=== PATIENT | male | born 1935 | race Two or more races ===

== ENCOUNTER 2020-05-07 14:10 | Inpatient (IN) | payer MEDICARE, BC ==
[~2020-05-07] VITALS: Ht 165.1 cm; Wt 74.8 kg
[2020-05-07] MEDS ORDERED: MAG HYDROX/AL HYDROX/SIMETH 30 ML ORAL.SUSP PO PRN (14:45)
[2020-05-07] MEDS ORDERED: LORA0.5T21 PO ×2 (14:45→14:52)
[2020-05-07] MEDS ORDERED: METHYL SALICYLATE/MENTHOL TOPICAL OINTMENT 57GM TUBE. TP PRN (14:45)
[2020-05-07] MEDS ORDERED: MAGNESIUM HYDROXIDE 2,400 MG/30 ML ORAL.SUSP. PO PRN (14:45)
[2020-05-07] MEDS ORDERED: ACETAMINOPHEN 325 MG TABLET PO PRN (14:45)
[2020-05-07] MEDS ORDERED: MORP5SUP RC (14:52)
[2020-05-07] MEDS ORDERED: TRAZ-125 PO (14:52)
[2020-05-07] MEDS ORDERED: MELA5TAB11 SL (14:52)
[2020-05-07] MEDS ORDERED: MEMA10TA PO (14:52)
[2020-05-07 15:31] VITALS: BP 144/66
[2020-05-07 19:25] LABS: BASO % 1 % (0-3); EOS # 0.3 x10^3/uL (0.0-0.7); EOS % 4 % (0-3); HEMATOCRIT 46.4 % (39.0-53.0); HEMOGLOBIN 14.9 g/dL (13.0-17.5); LYMPH # 1.3 x10^3/uL (1.0-4.8); LYMPH % 19 % (24-48); MEAN CORPUSCULAR HEMOGLOBIN 30 pg (25-35); MEAN CORPUSCULAR HGB CONC 32 g/dL (31-37); MEAN CORPUSCULAR VOLUME 94 fL (79-100); MONO # 0.4 x10^3/uL (0.0-1.1); MONO % 6 % (0-9); NEUT % 71 % (31-73); PLATELET COUNT 180 x10^3/uL (140-400); RED BLOOD COUNT 4.95 x10^6/uL (4.30-5.70); RED CELL DISTRIBUTION WIDTH 14.6 % (11.5-14.5); WHITE BLOOD COUNT 7.1 x10^3/uL (4.0-11.0)
[2020-05-07 20:16] LABS: ALBUMIN 3.4 g/dL (3.4-5.0); ALBUMIN/GLOBULIN RATIO 0.9 (1.0-1.7); CREATININE 0.8 mg/dL (0.7-1.3); GFR 91.7; MAGNESIUM 2.3 mg/dL (1.8-2.4); POTASSIUM 3.7 mmol/L (3.5-5.1); TOTAL BILIRUBIN 0.2 mg/dL (0.2-1.0); TOTAL PROTEIN 7.1 g/dL (6.4-8.2)
--- NOTE | 2020-05-07 21:14 | PDOC ---
Exam Note: Avtar Note: Please also refer to the separate dictated note~for this date of service dictated separately.~Patient seen individually. Discussed the patient with Nursing staff reviewed the chart.~Reviewed interim history and current functioning. Reviewed vital signs,~Labs/ Radiology~and current medications noted below. Continue current treatment with the changes noted in the dictated addendum note Assessment: Vital Signs/I&O: Vital Signs Date Time Temp Pulse Resp B/P (MAP) Pulse Ox O2 Delivery O2 Flow Rate FiO2 05/07/20 15:31 97.3 63 16 144/66 (92) 97 Room Air Labs: Laboratory Tests Test 05/07/20 19:08 White Blood Count 7.1 x10^3/uL (4.0-11.0) Red Blood Count 4.95 x10^6/uL (4.30-5.70) Hemoglobin 14.9 g/dL (13.0-17.5) Hematocrit 46.4 % (39.0-53.0) Mean Corpuscular Volume 94 fL (79-100) Mean Corpuscular Hemoglobin 30 pg (25-35) Mean Corpuscular Hemoglobin Concent 32 g/dL (31-37) Red Cell Distribution Width 14.6 % (11.5-14.5) H Platelet Count 180 x10^3/uL (140-400) Neutrophils (%) (Auto) 71 % (31-73) Lymphocytes (%) (Auto) 19 % (24-48) L Monocytes (%) (Auto) 6 % (0-9) Eosinophils (%) (Auto) 4 % (0-3) H Basophils (%) (Auto) 1 % (0-3) Neutrophils # (Auto) 5.0 x10^3uL (1.8-7.7) Lymphocytes # (Auto) 1.3 x10^3/uL (1.0-4.8) Monocytes # (Auto) 0.4 x10^3/uL (0.0-1.1) Eosinophils # (Auto) 0.3 x10^3/uL (0.0-0.7) Basophils # (Auto) 0.0 x10^3/uL (0.0-0.2) Sodium Level 149 mmol/L (136-145) H Potassium Level 3.7 mmol/L (3.5-5.1) Chloride Level 110 mmol/L (98-107) H Carbon Dioxide Level 27 mmol/L (21-32) Anion Gap 12 (6-14) Blood Urea Nitrogen 31 mg/dL (8-26) H Creatinine 0.8 mg/dL (0.7-1.3) Estimated GFR (Cockcroft-Gault) 91.7 BUN/Creatinine Ratio 39 (6-20) H Glucose Level 139 mg/dL (70-99) H Calcium Level 9.0 mg/dL (8.5-10.1) Magnesium Level 2.3 mg/dL (1.8-2.4) Total Bilirubin 0.2 mg/dL (0.2-1.0) Aspartate Amino Transferase (AST) 19 U/L (15-37) Alanine Aminotransferase (ALT) 21 U/L (16-63) Alkaline Phosphatase 115 U/L (46-116) Total Protein 7.1 g/dL (6.4-8.2) Albumin 3.4 g/dL (3.4-5.0) Albumin/Globulin Ratio 0.9 (1.0-1.7) L Current Medications: Meds: Laboratory Tests Test 05/07/20 19:08 White Blood Count 7.1 x10^3/uL Red Blood Count 4.95 x10^6/uL Hemoglobin 14.9 g/dL Hematocrit 46.4 % Mean Corpuscular Volume 94 fL Mean Corpuscular Hemoglobin 30 pg Mean Corpuscular Hemoglobin Concent 32 g/dL Red Cell Distribution Width 14.6 % Platelet Count 180 x10^3/uL Neutrophils (%) (Auto) 71 % Lymphocytes (%) (Auto) 19 % Monocytes (%) (Auto) 6 % Eosinophils (%) (Auto) 4 % Basophils (%) (Auto) 1 % Neutrophils # (Auto) 5.0 x10^3uL Lymphocytes # (Auto) 1.3 x10^3/uL Monocytes # (Auto) 0.4 x10^3/uL Eosinophils # (Auto) 0.3 x10^3/uL Basophils # (Auto) 0.0 x10^3/uL Sodium Level 149 mmol/L Potassium Level 3.7 mmol/L Chloride Level 110 mmol/L Carbon Dioxide Level 27 mmol/L Anion Gap 12 Blood Urea Nitrogen 31 mg/dL Creatinine 0.8 mg/dL Estimated GFR (Cockcroft-Gault) 91.7 BUN/Creatinine Ratio 39 Glucose Level 139 mg/dL Calcium Level 9.0 mg/dL Magnesium Level 2.3 mg/dL Total Bilirubin 0.2 mg/dL Aspartate Amino Transf (AST/SGOT) 19 U/L Alanine Aminotransferase (ALT/SGPT) 21 U/L Alkaline Phosphatase 115 U/L Total Protein 7.1 g/dL Albumin 3.4 g/dL Albumin/Globulin Ratio 0.9 Current Medications Medications (Trade) Dose Ordered Sig/Desire Route PRN Reason Start Time Stop Time Status Last Admin Dose Admin Acetaminophen (Tylenol) 650 mg PRN Q6HRS PRN PO MILD PAIN / TEMP > 100.3'F 05/07/20 14:45 UNV Multi-Ingredient Ointment (Analgesic [place]) 1 garland PRN QID PRN TP MUSCLE PAIN 05/07/20 14:45 UNV Al Hydroxide/Mg Hydroxide (Mylanta Plus Xs) 15 ml PRN AFTMEALHC PRN PO DYSPEPSIA 05/07/20 14:45 UNV Magnesium Hydroxide (Milk Of Magnesia) 2,400 mg PRN QHS PRN PO CONSTIPATION 05/07/20 14:45 UNV I have reviewed the current psychotropics carefully including drug interactions. Risk benefit ratio favors no change other than as noted in my dictated progress note. ELIAS WILLSON MD May 07, 2020 21:14
[2020-05-07] MEDS ORDERED: ACET500T68 PO (21:34)
[2020-05-07] MEDS ORDERED: NEOM1OIN6 TP (21:34)
[2020-05-07] MEDS ORDERED: MORP20SO PO (21:34)
[2020-05-07] MEDS ORDERED: NON FORMULARY ITEM (Melatonin 5 MG) SL PRN (21:45)
[2020-05-07] MEDS ORDERED: NEOMY/BACITR/POLYMYXIN OINT PACKET. TP PRN (21:45)
[2020-05-07] MEDS ORDERED: ACETAMINOPHEN 500 MG TABLET PO PRN (21:45)
[2020-05-07] MEDS ORDERED: LORazepam 0.5 MG TABLET PO PRN (21:45)
[2020-05-07] MEDS ORDERED: MORPHINE SULFATE 10 MG/5 ML ORAL SOLUTION. PO PRN (22:45)
[2020-05-07] MEDS ORDERED: MELATONIN 3 MG TABLET PO PRN (22:45)
[2020-05-07] MEDS: traZODone 100 MG TABLET. PO SCH (22:46)
[2020-05-08 06:03] VITALS: BP 130/67
[2020-05-08] MEDS: MEMANTINE 10 MG TABLET. PO SCH (08:20)
[2020-05-08] MEDS ORDERED: LORazepam 0.5 MG TABLET PO SCH (09:00)
[2020-05-08 13:26] LABS: THYROXINE 5.6 ug/dL (4.5-12.0)
[2020-05-08 15:10] LABS: THYROID STIM HORMONE (TSH) 1.435 uIU/mL (0.358-3.740)
[2020-05-08 15:45] VITALS: BP 176/85
--- NOTE | 2020-05-08 15:47 | TX PLAN ---
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 Change Sleep, Angry, Anxiety/Panic, Combative, Confusion/Disoriented, Poor impulse control Problem in Patient's Words: Aggressive behaviors that are preventing staff from caring for him Additional Admission Comments: Per intake record, restless, threw food, hit peer, moving furniture-dismantled recliner, aggressive, agitated, slapping/punching staff, defecated on the couch, wandering. Problems Active Problems: wandering resists care aggressive at times of care inadequate sleep intrusive disoriented, unable to express basic needs Inactive Problems: Adequate intake of meals Pt Strengths/Limitations Ability for [place]: Poor Cognitive Functioning/Ability: Poor Communication Skills/Ability: Poor Financial Resources: Fair Insight/Judgement: Poor Intellectual Ability: Fair Physical Health: Fair Social Skills: Poor Stability in Family: Good Verbal Skills: Poor Discharge Criteria Discharge Criteria: Adequate arrangements @DC, Improved behavior, Improved mood/thought Preliminary Discharge Plan Preliminary DC Plan: Memory Care Special Precautions Special Precautions: Agitation/Assault Fall Risk: High Initial D/C Plan Memory care Identified Discharge Needs: Family is in the process of researching memory care units and express desire for Quinn to go to a different memory care facility upon d/c. Currently Utilized Resources Currently Utilized Resources/P: PCP [facility] psychiatrist Identified Problems/Hx/Goals Objectives/Short-Term Goals Short Term Goals: Control abnormal behavior, Dec. Aggression, Dec. Outbursts, Medication Stabilization, Monitor Med Effects Short Term Goals in Patient's: Per Neisha, /POA, more calm and less agitation at times of care. Interventions/Frequency Staff Interventions/Frequency&: Nursing to provide routine safety checks, medication administration, and adl support. Psychiatry to see three times a week. SW to visit twice weekly. Recreational and SW group activities as able. 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 Quinn retired fully 6-7 years ago. Social: Quinn enjoys the outdoors, fishing, and playing cards. Education: Quinn graduated from [employer]. Community Follow-up PCP Psychiatry if available Treatment Plan Explained Patient/Arcade Attendant had this treatment plan explained to him/her as indicated by the signature below and has been given the opportunity to ask questions and make suggestions: Date: Patient/Arcade Attendant Signature: YAEL CADET May 08, 2020 15:47
[2020-05-08] MEDS: traZODone 100 MG TABLET. PO SCH (19:48)
--- NOTE | 2020-05-08 20:55 | PDOC ---
Exam Note: Avtar Note: Please also refer to the separate dictated note~for this date of service dictated separately.~Patient seen individually. Discussed the patient with Nursing staff reviewed the chart.~Reviewed interim history and current functioning. Reviewed vital signs,~Labs/ Radiology~and current medications noted below. Continue current treatment with the changes noted in the dictated addendum note Assessment: Vital Signs/I&O: Vital Signs Date Time Temp Pulse Resp B/P (MAP) Pulse Ox O2 Delivery O2 Flow Rate FiO2 05/08/20 15:45 97.4 98 18 176/85 (115) 94 Room Air I & O 05/07/20 05/07/20 05/08/20 15:00 23:00 07:00 Intake Total 960 ml Balance 960 ml Current Medications: Meds: Current Medications Medications (Trade) Dose Ordered Sig/Desire Route PRN Reason Start Time Stop Time Status Last Admin Dose Admin Lorazepam (Ativan) 0.25 mg DAILY PO 05/08/20 09:00 05/08/20 13:25 DC 05/08/20 08:20 Memantine (Namenda) 10 mg DAILY PO 05/08/20 09:00 05/08/20 08:20 Trazodone HCl (Desyrel) 100 mg QHS PO 05/07/20 23:00 05/08/20 19:48 Melatonin (Melatonin) 3 mg PRN QHS PRN PO INSOMNIA 05/07/20 22:45 05/08/20 13:23 DC 05/07/20 22:46 I have reviewed the current psychotropics carefully including drug interactions. Risk benefit ratio favors no change other than as noted in my dictated progress note. ELIAS WILLSON MD May 08, 2020 20:55
[2020-05-08] MEDS ORDERED: traZODone 100 MG TABLET. PO SCH (21:00)
[2020-05-08 23:23] LABS: HEMOGLOBIN A1C 5.5 % (4.8-5.6)
[2020-05-09 06:21] VITALS: BP 151/61
[2020-05-09] MEDS: MEMANTINE 10 MG TABLET. PO SCH (08:32)
[2020-05-09] MEDS: LORazepam 0.5 MG TABLET PO SCH (08:34)
[2020-05-09] MEDS: SERTRALINE 25 MG TABLET. PO SCH (08:34)
[2020-05-09 08:47] LABS: BACTERIA,URINE 0 /HPF (0-FEW); BILIRUBIN,URINE NEG (NEG); CLARITY,URINE CLEAR; COLOR,URINE YELLOW; GLUCOSE,URINE NEG (NEG); NITRITE,URINE NEG (NEG); SQUAMOUS EPITHELIAL CELL,UR FEW /LPF; UROBILINOGEN,URINE 0.2 mg/dL (0.2 mg/dL)
--- NOTE | 2020-05-09 14:34 | HP ---
ADMIT DATE: 05/07/2020 PSYCHIATRIC ADMISSION HISTORY AND EVALUATION This is late entry, date of service 05/07/2020, covers elements not covered in my initial note. I met with the patient evening of 05/07/2020 as part of this evaluation, previously discussed with Balbina Schuster, digital traffic coordinator and nursing staff. IDENTIFYING DATA: The patient is an 84-year-old male referred to us from the [facility] on account of increasing agitation, delusions, aggression, and disruptive behaviors. The patient's behaviors have been deemed dangerous, unmanageable at the facility and he was referred for inpatient psychiatric stabilization. CHIEF COMPLAINT: "No." The patient kept walking as I walked with him as part of this evaluation. He is oriented just to himself. HISTORY OF PRESENT ILLNESS: The patient has a history of dementia, Alzheimer's vascular type. He has been residing at the above facility for some time, but recently getting more psychotic, confused, agitated, delusional. He has had sleep and appetite changes. No clear history of bipolar disorder, suicidal or homicidal ideation. PAST PSYCHIATRIC HISTORY: As above. MEDICAL HISTORY: Positive for status post COVID-19 infection, dehydration. CURRENT PSYCHOTROPICS: Ativan 0.25 mg a.m. and 0.5 mg at bedtime, melatonin 5 mg at bedtime, Namenda 10 mg a.m., trazodone 100 mg at bedtime. FAMILY HISTORY: Noncontributory. SOCIAL HISTORY: No history of alcohol, drug abuse, physical, sexual or elder abuse. He is not known to be a perpetrator. REACTION TO HOSPITALIZATION: The patient oblivious of this. ASSETS: Supportive, living at the [facility]. Supportive family. MENTAL STATUS EXAMINATION: The patient was seen individually evening of 05/07/2020. He is oriented to himself. Insight, judgment, recent and remote memory, attention, concentration, fund of knowledge poor, consistent with his diagnosis. He is easily distracted intermittently, paranoid, psychotic. IMPRESSION: Major neurocognitive disorder, Alzheimer, vascular with delusion, depression, behavioral disturbance; anxiety disorder, unspecified; impulse control disorder, unspecified. Rest as above. PLAN: Admit to Geropsychiatry Unit at [facility]. I will see the patient daily individually from a psychiatric standpoint. Medical follow up with Dr. Dumont/Dr Angulo. Continue current psychotropics and may consider tapering the Ativan since it could be causing paradoxical disinhibition, considering SSRIs and depending on his sleep pattern making adjustments in the melatonin and adjusting the Namenda, considering Depakote as a mood stabilizer. We will assess the patient's baseline, then make decisions. Estimated length of stay 10-12 days. DISPOSITION: Plans back to senior care when stable. The patient will be staffed at a treatment team with the entire team in the morning of 05/08/2020. MAN Kiran WILLSON MD DR: BRANDI/darvin JOB#: [id number] / [id number]
[2020-05-09 16:27] VITALS: BP 141/83
[2020-05-09] MEDS: traZODone 100 MG TABLET. PO SCH (17:22)
--- NOTE | 2020-05-09 18:48 | PN ---
DATE: 05/08/2020 PSYCHIATRIC PROGRESS NOTE This late entry 05/08 covers elements not covered in my initial note. SUBJECTIVE: I met with the patient evening of 05/08 and staffed at a treatment team meeting with the entire team in the morning with AUTUMN Santos, Jessy from activity therapy, Balbina Schuster and Yarely, social service staff along with Kaur, social service staff. Discussed the patient's diagnosis, progress. He remains confused, wandering the hallways, slept just 2-1/4 hours previous night. REVIEW OF SYSTEMS: No CV, , pulmonary, eye, ENT system symptoms on review. Reliability poor. MENTAL STATUS EXAM: Oriented to himself. Insight, judgment, recent and remote memory, attention, concentration, fund of knowledge poor, consistent with his diagnosis. IMPRESSION: Major neurocognitive disorder, Alzheimer, vascular with delusion, depression, behavioral disturbance; anxiety disorder, unspecified; impulse control disorder, unspecified. Rest unchanged. PLAN: Reduce the Ativan from 0.25 mg a.m. and 0.5 mg at bedtime down to 0.25 mg a.m. and at bedtime and gradually taper and stop it. Start Zyprexa 2.5 mg q. 2 hours p.r.n. psychosis, agitation, max 7.5 mg in 24 hours. Change melatonin 5 mg at bedtime to Remeron 7.5 mg at bedtime and start Zoloft 25 mg a day, increasing to 50 mg a day in 3 days for his mood, anxiety, irritability symptoms. Consider Depakote as options depending on his progress. ELIAS WILLSON MD DR: BRANDI/darvin JOB#: [id number] / [id number]
--- NOTE | 2020-05-09 22:03 | PDOC ---
Exam Note: Avtar Note: Please also refer to the separate dictated note~for this date of service dictated separately.~Patient seen individually. Discussed the patient with Nursing staff reviewed the chart.~Reviewed interim history and current functioning. Reviewed vital signs,~Labs/ Radiology~and current medications noted below. Continue current treatment with the changes noted in the dictated addendum note Assessment: Vital Signs/I&O: Vital Signs Date Time Temp Pulse Resp B/P (MAP) Pulse Ox O2 Delivery O2 Flow Rate FiO2 05/09/20 16:27 97.1 82 16 141/83 (102) 94 Room Air I & O 05/08/20 05/08/20 05/09/20 14:59 22:59 06:59 Intake Total 1200 ml 480 ml Balance 1200 ml 480 ml Labs: Laboratory Tests Test 05/09/20 06:20 Urine Collection Type Unknown Urine Color Yellow Urine Clarity Clear Urine pH 6.0 Urine Specific [place] >=1.030 Urine Protein Neg (NEG-TRACE) Urine Glucose (UA) Neg mg/dL (NEG) Urine Ketones (Stick) Neg mg/dL (NEG) Urine Blood Trace (NEG) Urine Nitrite Neg (NEG) Urine Bilirubin Neg (NEG) Urine Urobilinogen Dipstick 0.2 mg/dL (0.2 mg/dL) Urine Leukocyte Esterase Neg (NEG) Urine RBC 6-10 /HPF (0-2) Urine WBC 1-4 /HPF (0-4) Urine Squamous Epithelial Cells Few /LPF Urine Renal Epithelial Cells Few /LPF Urine Bacteria 0 /HPF (0-FEW) Urine Mucus Slight /LPF Current Medications: Meds: Current Medications Medications (Trade) Dose Ordered Sig/Desire Route PRN Reason Start Time Stop Time Status Last Admin Dose Admin Lorazepam (Ativan) 0.25 mg DAILY PO 05/09/20 09:00 05/13/20 09:00 05/09/20 08:34 Sertraline HCl (Zoloft) 25 mg DAILY PO 05/09/20 09:00 05/11/20 09:59 05/09/20 08:34 I have reviewed the current psychotropics carefully including drug interactions. Risk benefit ratio favors no change other than as noted in my dictated progress note. Diagnosis: Problems: (1) Major neurocognitive disorder (2) Dementia in Alzheimer's disease with depression (3) Dementia of the Alzheimer's type with early onset with behavioral disturbance (4) Dementia in Alzheimer's disease with delusions (5) Dementia, vascular, with depression (6) Dementia, vascular, with delusions (7) Anxiety disorder, unspecified (8) Impulse control disorder, unspecified ELIAS WILLSON MD May 09, 2020 22:03
[2020-05-10 05:27] VITALS: BP 144/63
[2020-05-10] MEDS: SERTRALINE 25 MG TABLET. PO SCH (08:12)
[2020-05-10] MEDS: MEMANTINE 10 MG TABLET. PO SCH (08:12)
[2020-05-10] MEDS: LORazepam 0.5 MG TABLET PO SCH (08:13)
--- NOTE | 2020-05-10 08:52 | EKG ---
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
[2020-05-10 19:21] VITALS: BP 147/72
[2020-05-10] MEDS: traZODone 100 MG TABLET. PO SCH (19:43)
[2020-05-10] MEDS: LORazepam 0.5 MG TABLET PO PRN (23:40)
[2020-05-11 06:01] VITALS: BP 151/67
[2020-05-11] MEDS: MEMANTINE 10 MG TABLET. PO SCH (09:02)
[2020-05-11] MEDS: SERTRALINE 25 MG TABLET. PO SCH (09:02)
[2020-05-11] MEDS: LORazepam 0.5 MG TABLET PO SCH (09:03)
[2020-05-11 16:03] VITALS: BP 108/62
[2020-05-11] MEDS: traZODone 100 MG TABLET. PO SCH (19:49)
[2020-05-11] MEDS ORDERED: MIRTAZAPINE 7.5 MG TABLET. PO SCH (21:00)
--- NOTE | 2020-05-11 21:05 | PDOC ---
Exam Note: Avtar Note: This note is a late entry for 05/09/2020 covers elements not covered in my initial note. Subjective: The patient was seen face to face in the evening of 05/09/2020 with Laura LEYVA, discussed and reviewed the chart. He slept 6-1/4 hours previous night. The patient remains confused, wandering, intrusive. He does redirect. UA has reflex to culture. Review of Systems: No CV, pulmonary, eye, ENT system symptoms on review. Reliability poor. Mental Status Exam: The patient is oriented to himself. Insight and judgment, recent and remote memory, attention and concentration, fund of knowledge is poor consistent with his diagnosis. Laboratory Data: Reviewed. 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 Anxiety disorder unspecified. Impulse control disorder unspecified. Plan: We may consider adding Depakote as a mood stabilizer depending on his progress but for now continue psychotropics mentioned in my initial note. Assessment: Vital Signs/I&O: Vital Signs Date Time Temp Pulse Resp B/P (MAP) Pulse Ox O2 Delivery O2 Flow Rate FiO2 05/11/20 16:03 98.6 60 18 108/62 (77) 96 05/09/20 16:27 Room Air I & O 0 05/10/20 05/10/20 05/11/20 15:00 23:00 07:00 Intake Total 240 ml 480 ml Balance 240 ml 480 ml Current Medications: Meds: Current Medications Medications (Trade) Dose Ordered Sig/Desire Route PRN Reason Start Time Stop Time Status Last Admin Dose Admin Acetaminophen (Tylenol) 650 mg PRN Q6HRS PRN PO MILD PAIN / TEMP > 100.3'F 05/07/20 14:45 Multi-Ingredient Ointment (Analgesic [place]) 1 garland PRN QID PRN TP MUSCLE PAIN 05/07/20 14:45 Al Hydroxide/Mg Hydroxide (Mylanta Plus Xs) 15 ml PRN AFTMEALHC PRN PO DYSPEPSIA 05/07/20 14:45 Magnesium Hydroxide (Milk Of Magnesia) 2,400 mg PRN QHS PRN PO CONSTIPATION 05/07/20 14:45 Acetaminophen (Tylenol) 500 mg PRN Q6HRS PRN PO MILD PAIN / TEMP > 100.3'F 05/07/20 21:45 UNV Lorazepam (Ativan) 0.25 mg DAILY PO 05/08/20 09:00 05/08/20 13:25 DC 05/08/20 08:20 Lorazepam (Ativan) 0.5 mg PRN QHS PRN PO ANXIETY 05/07/20 21:45 05/08/20 13:23 DC Memantine (Namenda) 10 mg DAILY PO 05/08/20 09:00 05/11/20 09:02 Neomycin/ Polymyxin/ Bacitracin (Triple Antibiotic Ointment) 1 pkt PRN DAILY PRN TP SKIN CLEANSING 05/07/20 21:45 Trazodone HCl (Desyrel) 100 mg QHS PO 05/08/20 21:00 05/07/20 22:05 DC Non-Formulary Medication (Melatonin ) 5 mg QHS PRN SL insomnia 05/07/20 21:45 05/07/20 22:05 DC Morphine Sulfate (Morphine Oral Solution) 5 mg PRN Q3HRS PRN PO PAIN 05/07/20 22:45 Trazodone HCl (Desyrel) 100 mg QHS PO 05/07/20 23:00 05/11/20 19:49 Melatonin (Melatonin) 3 mg PRN QHS PRN PO INSOMNIA 05/07/20 22:45 05/08/20 13:23 DC 05/07/20 22:46 Lorazepam (Ativan) 0.25 mg PRN QHS PRN PO ANXIETY 05/08/20 21:00 05/10/20 23:40 Lorazepam (Ativan) 0.25 mg DAILY PO 05/09/20 09:00 05/13/20 09:00 05/11/20 09:03 Sertraline HCl (Zoloft) 25 mg DAILY PO 05/09/20 09:00 05/11/20 09:59 DC 05/11/20 09:02 Sertraline HCl (Zoloft) 50 mg DAILY PO 05/12/20 09:00 Melatonin (Melatonin) 3 mg PRN QHS PRN PO INSOMNIA 05/11/20 18:15 Mirtazapine (Remeron) 7.5 mg QHS PO 05/11/20 21:00 05/11/20 19:49 Current Medications Medications (Trade) Dose Ordered Sig/Desire Route PRN Reason Start Time Stop Time Status Last Admin Dose Admin Mirtazapine (Remeron) 7.5 mg QHS PO 05/11/20 21:00 05/11/20 19:49 I have reviewed the current psychotropics carefully including drug interactions. Risk benefit ratio favors no change other than as noted in my dictated progress note. Diagnosis: Problems: (1) Impulse control disorder, unspecified (2) Anxiety disorder, unspecified (3) Dementia, vascular, with depression (4) Dementia, vascular, with delusions (5) Dementia in Alzheimer's disease with depression (6) Dementia in Alzheimer's disease with delusions (7) Dementia of the Alzheimer's type with early onset with behavioral disturbance (8) Major neurocognitive disorder ELIAS WILLSON MD May 11, 2020 21:05
--- NOTE | 2020-05-11 21:28 | PDOC ---
Exam Note: Avtar Note: This note is a late entry for 05/10/2020 covers elements not covered in my initial note. Subjective: The patient was seen face to face in the evening of 05/10/2020 with Laura LEYVA, discussed and reviewed the chart. He slept 6-1/4 hours previous night. The patient remains confused. He escaped from the unit and went one floor down before staff members noticed and he was brought back up. He is compliant with his medications. He has been somewhat agitated. We will certainly consider adding Depakote. I would like to give it another day before deciding as we are tapering the Ativan and paradoxical disinhibition might improve with this. Review of Systems: No CV, pulmonary, eye, ENT system symptoms on review. Reliability poor. Mental Status Exam: The patient is oriented to himself. Insight and judgment, recent and remote memory, attention and concentration, fund of knowledge is poor consistent with his diagnosis. Laboratory Data: Reviewed. 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 Anxiety disorder unspecified. Impulse control disorder unspecified. Assessment: Vital Signs/I&O: Vital Signs Date Time Temp Pulse Resp B/P (MAP) Pulse Ox O2 Delivery O2 Flow Rate FiO2 05/11/20 16:03 98.6 60 18 108/62 (77) 96 05/09/20 16:27 Room Air I & O 05/10/20 05/10/20 05/11/20 14:59 22:59 06:59 Intake Total 240 ml 480 ml Balance 240 ml 480 ml Current Medications: Meds: Current Medications Medications (Trade) Dose Ordered Sig/Desire Route PRN Reason Start Time Stop Time Status Last Admin Dose Admin Acetaminophen (Tylenol) 650 mg PRN Q6HRS PRN PO MILD PAIN / TEMP > 100.3'F 05/07/20 14:45 Multi-Ingredient Ointment (Analgesic [place]) 1 [place] PRN QID PRN TP MUSCLE PAIN 05/07/20 14:45 Al Hydroxide/Mg Hydroxide (Mylanta Plus Xs) 15 ml PRN AFTMEALHC PRN PO DYSPEPSIA 05/07/20 14:45 Magnesium Hydroxide (Milk Of Magnesia) 2,400 mg PRN QHS PRN PO CONSTIPATION 05/07/20 14:45 Acetaminophen (Tylenol) 500 mg PRN Q6HRS PRN PO MILD PAIN / TEMP > 100.3'F 05/07/20 21:45 UNV Lorazepam (Ativan) 0.25 mg DAILY PO 05/08/20 09:00 05/08/20 13:25 DC 05/08/20 08:20 Lorazepam (Ativan) 0.5 mg PRN QHS PRN PO ANXIETY 05/07/20 21:45 05/08/20 13:23 DC Memantine (Namenda) 10 mg DAILY PO 05/08/20 09:00 05/11/20 09:02 Neomycin/ Polymyxin/ Bacitracin (Triple Antibiotic Ointment) 1 pkt PRN DAILY PRN TP SKIN CLEANSING 05/07/20 21:45 Trazodone HCl (Desyrel) 100 mg QHS PO 05/08/20 21:00 05/07/20 22:05 DC Non-Formulary Medication (Melatonin ) 5 mg QHS PRN SL insomnia 05/07/20 21:45 05/07/20 22:05 DC Morphine Sulfate (Morphine Oral Solution) 5 mg PRN Q3HRS PRN PO PAIN 05/07/20 22:45 Trazodone HCl (Desyrel) 100 mg QHS PO 05/07/20 23:00 05/11/20 19:49 Melatonin (Melatonin) 3 mg PRN QHS PRN PO INSOMNIA 05/07/20 22:45 05/08/20 13:23 DC 05/07/20 22:46 Lorazepam (Ativan) 0.25 mg PRN QHS PRN PO ANXIETY 05/08/20 21:00 05/10/20 23:40 Lorazepam (Ativan) 0.25 mg DAILY PO 05/09/20 09:00 05/13/20 09:00 05/11/20 09:03 Sertraline HCl (Zoloft) 25 mg DAILY PO 05/09/20 09:00 05/11/20 09:59 DC 05/11/20 09:02 Sertraline HCl (Zoloft) 50 mg DAILY PO 05/12/20 09:00 Melatonin (Melatonin) 3 mg PRN QHS PRN PO INSOMNIA 05/11/20 18:15 Mirtazapine (Remeron) 7.5 mg QHS PO 05/11/20 21:00 05/11/20 19:49 Current Medications Medications (Trade) Dose Ordered Sig/Desire Route PRN Reason Start Time Stop Time Status Last Admin Dose Admin Mirtazapine (Remeron) 7.5 mg QHS PO 05/11/20 21:00 3 19:49 I have reviewed the current psychotropics carefully including drug interactions. Risk benefit ratio favors no change other than as noted in my dictated progress note. Diagnosis: Problems: (1) Impulse control disorder, unspecified (2) Anxiety disorder, unspecified (3) Dementia, vascular, with depression (4) Dementia, vascular, with delusions (5) Dementia in Alzheimer's disease with depression (6) Dementia in Alzheimer's disease with delusions (7) Dementia of the Alzheimer's type with early onset with behavioral disturbance (8) Major neurocognitive disorder ELIAS WILLSON MD May 11, 2020 21:28
--- NOTE | 2020-05-11 21:54 | PDOC ---
Exam Note: Avtar Note: Please also refer to the separate dictated note~for this date of service dictated separately.~Patient seen individually. Discussed the patient with Nursing staff reviewed the chart.~Reviewed interim history and current functioning. Reviewed vital signs,~Labs/ Radiology~and current medications noted below. Continue current treatment with the changes noted in the dictated addendum note Assessment: Vital Signs/I&O: Vital Signs Date Time Temp Pulse Resp B/P (MAP) Pulse Ox O2 Delivery O2 Flow Rate FiO2 05/11/20 16:03 98.6 60 18 108/62 (77) 96 05/09/20 16:27 Room Air I & O 05/10/20 05/10/20 05/11/20 15:00 23:00 07:00 Intake Total 240 ml 480 ml Balance 240 ml 480 ml Current Medications: Meds: Current Medications Medications (Trade) Dose Ordered Sig/Desire Route PRN Reason Start Time Stop Time Status Last Admin Dose Admin Mirtazapine (Remeron) 7.5 mg QHS PO 05/11/20 21:00 05/11/20 19:49 I have reviewed the current psychotropics carefully including drug interactions. Risk benefit ratio favors no change other than as noted in my dictated progress note. Diagnosis: Problems: (1) Impulse control disorder, unspecified (2) Anxiety disorder, unspecified (3) Dementia, vascular, with depression (4) Dementia, vascular, with delusions (5) Dementia in Alzheimer's disease with depression (6) Dementia in Alzheimer's disease with delusions (7) Dementia of the Alzheimer's type with early onset with behavioral disturbance (8) Major neurocognitive disorder ELIAS WILLSON MD May 11, 2020 21:54
[2020-05-11] MEDS: LORazepam 0.5 MG TABLET PO PRN (23:41)
[2020-05-12 06:03] VITALS: BP 144/72
[2020-05-12] MEDS: MEMANTINE 10 MG TABLET. PO SCH (07:25)
[2020-05-12] MEDS: SERTRALINE 50 MG TABLET. PO SCH (07:25)
[2020-05-12] MEDS: LORazepam 0.5 MG TABLET PO SCH (07:25)
[2020-05-12 15:57] VITALS: BP 138/63
[2020-05-12] MEDS: MELATONIN 3 MG TABLET PO PRN (19:43)
[2020-05-12] MEDS: traZODone 100 MG TABLET. PO SCH (19:43)
[2020-05-12] MEDS: MIRTAZAPINE 15 MG TABLET PO SCH (19:44)
[2020-05-12 19:52] LABS: HEMATOCRIT 42.1 % (39.0-53.0); HEMOGLOBIN 13.6 g/dL (13.0-17.5); MEAN CORPUSCULAR HEMOGLOBIN 30 pg (25-35); MEAN CORPUSCULAR HGB CONC 32 g/dL (31-37); MEAN CORPUSCULAR VOLUME 93 fL (79-100); PLATELET COUNT 156 x10^3/uL (140-400); RED BLOOD COUNT 4.55 x10^6/uL (4.30-5.70); RED CELL DISTRIBUTION WIDTH 14.6 % (11.5-14.5)
[2020-05-12 20:02] LABS: CREATININE 0.9 mg/dL (0.7-1.3); POTASSIUM 4.2 mmol/L (3.5-5.1)
[2020-05-12 20:15] LABS: ALBUMIN 3.1 g/dL (3.4-5.0); ALBUMIN/GLOBULIN RATIO 0.9 (1.0-1.7); TOTAL BILIRUBIN 0.2 mg/dL (0.2-1.0); TOTAL PROTEIN 6.6 g/dL (6.4-8.2)
[2020-05-12 20:43] LABS: CALCIUM 8.8 mg/dL (8.5-10.1)
--- NOTE | 2020-05-12 21:01 | PDOC ---
Exam Note: Avtar Note: Please also refer to the separate dictated note~for this date of service dictated separately.~Patient seen individually. Discussed the patient with Nursing staff reviewed the chart.~Reviewed interim history and current functioning. Reviewed vital signs,~Labs/ Radiology~and current medications noted below. Continue current treatment with the changes noted in the dictated addendum note Assessment: Vital Signs/I&O: Vital Signs Date Time Temp Pulse Resp B/P (MAP) Pulse Ox O2 Delivery O2 Flow Rate FiO2 05/12/20 15:57 98.4 70 18 138/63 (88) 98 05/09/20 16:27 Room Air I & O 05/11/20 05/11/20 05/12/20 15:00 23:00 07:00 Intake Total 720 ml 720 ml Balance 720 ml 720 ml Labs: Laboratory Tests Test 05/12/20 19:35 White Blood Count 7.0 x10^3/uL (4.0-11.0) Red Blood Count 4.55 x10^6/uL (4.30-5.70) Hemoglobin 13.6 g/dL (13.0-17.5) Hematocrit 42.1 % (39.0-53.0) Mean Corpuscular Volume 93 fL (79-100) Mean Corpuscular Hemoglobin 30 pg (25-35) Mean Corpuscular Hemoglobin Concent 32 g/dL (31-37) Red Cell Distribution Width 14.6 % (11.5-14.5) H Platelet Count 156 x10^3/uL (140-400) Sodium Level 146 mmol/L (136-145) H Potassium Level 4.2 mmol/L (3.5-5.1) Chloride Level 109 mmol/L (98-107) H Carbon Dioxide Level 29 mmol/L (21-32) Anion Gap 8 (6-14) Blood Urea Nitrogen 35 mg/dL (8-26) H Creatinine 0.9 mg/dL (0.7-1.3) Estimated GFR (Cockcroft-Gault) 80.0 BUN/Creatinine Ratio 39 (6-20) H Glucose Level 117 mg/dL (70-99) H Lactic Acid Level 2.3 mmol/L (0.4-2.0) H Calcium Level 8.8 mg/dL (8.5-10.1) Total Bilirubin 0.2 mg/dL (0.2-1.0) Aspartate Amino Transferase (AST) 13 U/L (15-37) L Alanine Aminotransferase (ALT) 19 U/L (16-63) Alkaline Phosphatase 116 U/L (46-116) Total Protein 6.6 g/dL (6.4-8.2) Albumin 3.1 g/dL (3.4-5.0) L Albumin/Globulin Ratio 0.9 (1.0-1.7) L Current Medications: Meds: Current Medications Medications (Trade) Dose Ordered Sig/Desire Route PRN Reason Start Time Stop Time Status Last Admin Dose Admin Sertraline HCl (Zoloft) 50 mg DAILY PO 05/12/20 09:00 05/12/20 07:25 Mirtazapine (Remeron) 15 mg QHS PO 05/12/20 21:00 05/12/20 19:44 I have reviewed the current psychotropics carefully including drug interactions. Risk benefit ratio favors no change other than as noted in my dictated progress note. Diagnosis: Problems: (1) Impulse control disorder, unspecified (2) Anxiety disorder, unspecified (3) Dementia, vascular, with depression (4) Dementia, vascular, with delusions (5) Dementia in Alzheimer's disease with depression (6) Dementia in Alzheimer's disease with delusions (7) Dementia of the Alzheimer's type with early onset with behavioral disturbance (8) Major neurocognitive disorder ELIAS WILLSON MD May 12, 2020 21:01
--- NOTE | 2020-05-12 21:35 | CONS ---
DATE OF CONSULTATION: 05/12/2020 REASON FOR CONSULTATION: Medical management. HISTORY OF PRESENT ILLNESS: The patient is an 84-year-old male patient who was [facility] from the [facility] on account of increasing agitation, delusion and aggression, disruptive behavior. His behavior has been dangerous, unmanageable at the facility and he apparently came directly to the [facility]. The patient is extremely demented with a history of dementia, Alzheimer, vascular type, has been residing at the above facility for some time, but recently getting more psychotic, confused, agitated, delusional, has had sleep and appetite changes. No clear history of bipolar, suicidal or homicidal ideation. PAST MEDICAL HISTORY: Significant for dehydration, history of COVID-19, but no other really medical problems. PAST SURGICAL HISTORY: Unobtainable. ALLERGIES: He has no known drug allergies. FAMILY HISTORY: Noncontributory. SOCIAL HISTORY: He is a resident at [facility]. He does not smoke, drink alcohol or use any recreational drugs. REVIEW OF SYSTEMS: Unobtainable. MEDICATIONS: The patient is currently on following medications. He is on mirtazapine 15 mg at bedtime, sertraline 50 mg daily, melatonin 3 mg at bedtime, lorazepam 0.25 mg daily, lorazepam 0.5 mg at bedtime, Namenda 10 mg daily, trazodone 100 mg at bedtime, morphine sulfate 5 mg every 3 hours. He is on triple antibiotic ointment topically as needed, milk of magnesia 30 mL p.o. daily p.r.n. for constipation, Mylanta 15 mL after meals as needed, acetaminophen 650 mg daily. PHYSICAL EXAMINATION: GENERAL: When I examined him, the patient looked well and was clearly in no apparent respiratory distress. No pallor, jaundice, cyanosis or thyromegaly. No jugular venous distention. No lower limb edema. VITAL SIGNS: Her heart rate was 70, blood pressure was 138/63, temperature was 98.4, respiratory rate was 18 and oxygen saturation was 98% on room air. HEAD, EYES, EARS, NOSE AND THROAT: Showed normocephalic, atraumatic. NECK: Supple. HEART: Showed normal first and second heart sounds. No gallop, rub or murmur. CHEST: Clear to auscultation. No crepitation or rhonchi. ABDOMEN: Distended, soft, nontender. NEUROLOGIC: He is demented without any obvious lateralizing sign. All his cranial nerves are intact. EXTREMITIES: He moves extremities without difficulty, ambulates without assistance or assistive devices. LABORATORY DATA: Showed a white cell count 7100, hemoglobin 15, hematocrit 46, MCV 94 and platelet count of 180,000. His chemistry showed a serum sodium 149, potassium 3.7, chloride 110, bicarbonate 27, anion gap of 12, BUN 31, creatinine 0.8, estimated GFR was 91 mL per minute. His glucose 139, calcium was 9, magnesium 2.3. Total bilirubin, AST, ALT, alkaline phosphatase were normal. His total protein 7.1, albumin was 3.4. His serum triglycerides were 307, total cholesterol 217, LDL was 115, VLDL was 61, HDL was 40 and ratio was 5. His TSH was 1.435, total T4 and total T3 were normal. Vitamin B12 was 325 pg/mL and TSH was low at 27.7. His serum iron, TIBC and iron saturation are all consistent with a replete iron stores. His hemoglobin A1c was 5.5. Urinalysis was essentially unremarkable and his Treponema pallidum antibody was nonreactive, which seems that the patient has been generally medically stable except that he has hyperlipidemia and also has hypernatremia and slightly dehydrated. PLAN: My plan is to repeat all his lab work, probably we need to encourage his water intake and decide on further management accordingly. RICCO YUNG MD DR: ALOK/darvin JOB#: [id number] / [id number]
[2020-05-12 21:38] LABS: PLT ESTIMATE DECREASED (ADEQUATE)
[2020-05-13 06:05] VITALS: BP 135/76
[2020-05-13] MEDS: MEMANTINE 10 MG TABLET. PO SCH (08:51)
[2020-05-13] MEDS: LORazepam 0.5 MG TABLET PO SCH (08:51)
[2020-05-13] MEDS: SERTRALINE 50 MG TABLET. PO SCH (08:51)
--- NOTE | 2020-05-13 09:53 | PDOC ---
Exam Note: Avtar Note: This note is a late entry for 05/11/2020 covers elements not covered in my initial note. Subjective: The patient was seen face to face in the evening of 05/11/2020 with Lindy LEYVA, discussed and reviewed the chart. He slept 7-1/4 hours previous night. The patient is confused, wandering, intrusive previous night, sleeping poorly. Review of Systems: No CV, pulmonary, eye, ENT system symptoms on review. Reliability poor. Mental Status Exam: The patient is oriented to himself. Insight and judgment, recent and remote memory, attention and concentration, fund of knowledge is poor consistent with his diagnosis. Laboratory Data: Reviewed. 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 Anxiety disorder unspecified. Impulse control disorder unspecified. Plan: No change from initial note. As the patient is sleeping poorly, we will increase Remeron to 15 mg h.s. Add melatonin 3 mg h.s. p.r.n. insomnia. Continue rest of the psychotropics unchanged. Consider Depakote as a mood stabilizer. Assessment: Vital Signs/I&O: Vital Signs Date Time Temp Pulse Resp B/P (MAP) Pulse Ox O2 Delivery O2 Flow Rate FiO2 05/13/20 06:05 97.6 54 20 135/76 (95) 96 05/09/20 16:27 Room Air I & O 05/12/20 05/12/20 05/13/20 15:00 23:00 07:00 Intake Total 720 ml 540 ml Balance 720 ml 540 ml Labs: Laboratory Tests Test 05/12/20 19:35 05/12/20 22:50 White Blood Count 7.0 x10^3/uL (4.0-11.0) Red Blood Count 4.55 x10^6/uL (4.30-5.70) Hemoglobin 13.6 g/dL (13.0-17.5) Hematocrit 42.1 % (39.0-53.0) Mean Corpuscular Volume 93 fL (79-100) Mean Corpuscular Hemoglobin 30 pg (25-35) Mean Corpuscular Hemoglobin Concent 32 g/dL (31-37) Red Cell Distribution Width 14.6 % (11.5-14.5) H Platelet Count 156 x10^3/uL (140-400) Platelet Estimate Decreased (ADEQUATE) Large Platelets Mod Sodium Level 146 mmol/L (136-145) H Potassium Level 4.2 mmol/L (3.5-5.1) Chloride Level 109 mmol/L (98-107) H Carbon Dioxide Level 29 mmol/L (21-32) Anion Gap 8 (6-14) Blood Urea Nitrogen 35 mg/dL (8-26) H Creatinine 0.9 mg/dL (0.7-1.3) Estimated GFR (Cockcroft-Gault) 80.0 BUN/Creatinine Ratio 39 (6-20) H Glucose Level 117 mg/dL (70-99) H Lactic Acid Level 2.3 mmol/L (0.4-2.0) H 1.2 mmol/L (0.4-2.0) Calcium Level 8.8 mg/dL (8.5-10.1) Total Bilirubin 0.2 mg/dL (0.2-1.0) Aspartate Amino Transferase (AST) 13 U/L (15-37) L Alanine Aminotransferase (ALT) 19 U/L (16-63) Alkaline Phosphatase 116 U/L (46-116) Total Protein 6.6 g/dL (6.4-8.2) Albumin 3.1 g/dL (3.4-5.0) L Albumin/Globulin Ratio 0.9 (1.0-1.7) L Current Medications: Meds: Laboratory Tests Test 05/12/20 19:35 05/12/20 22:50 White Blood Count 7.0 x10^3/uL Red Blood Count 4.55 x10^6/uL Hemoglobin 13.6 g/dL Hematocrit 42.1 % Mean Corpuscular Volume 93 fL Mean Corpuscular Hemoglobin 30 pg Mean Corpuscular Hemoglobin Concent 32 g/dL Red Cell Distribution Width 14.6 % Platelet Count 156 x10^3/uL Platelet Estimate Decreased Large Platelets Mod Sodium Level 146 mmol/L Potassium Level 4.2 mmol/L Chloride Level 109 mmol/L Carbon Dioxide Level 29 mmol/L Anion Gap 8 Blood Urea Nitrogen 35 mg/dL Creatinine 0.9 mg/dL Estimated GFR (Cockcroft-Gault) 80.0 BUN/Creatinine Ratio 39 Glucose Level 117 mg/dL Lactic Acid Level 2.3 mmol/L 1.2 mmol/L Calcium Level 8.8 mg/dL Total Bilirubin 0.2 mg/dL Aspartate Amino Transf (AST/SGOT) 13 U/L Alanine Aminotransferase (ALT/SGPT) 19 U/L Alkaline Phosphatase 116 U/L Total Protein 6.6 g/dL Albumin 3.1 g/dL Albumin/Globulin Ratio 0.9 Current Medications Medications (Trade) Dose Ordered Sig/Desire Route PRN Reason Start Time Stop Time Status Last Admin Dose Admin Acetaminophen (Tylenol) 650 mg PRN Q6HRS PRN PO MILD PAIN / TEMP > 100.3'F 05/07/20 14:45 Multi-Ingredient Ointment (Analgesic [place]) 1 [place] PRN QID PRN TP MUSCLE PAIN 05/07/20 14:45 Al Hydroxide/Mg Hydroxide (Mylanta Plus Xs) 15 ml PRN AFTMEALHC PRN PO DYSPEPSIA 05/07/20 14:45 Magnesium Hydroxide (Milk Of Magnesia) 2,400 mg PRN QHS PRN PO CONSTIPATION 05/07/20 14:45 Acetaminophen (Tylenol) 500 mg PRN Q6HRS PRN PO MILD PAIN / TEMP > 100.3'F 05/07/20 21:45 UNV Lorazepam (Ativan) 0.25 mg DAILY PO 05/08/20 09:00 05/08/20 13:25 DC 05/08/20 08:20 Lorazepam (Ativan) 0.5 mg PRN QHS PRN PO ANXIETY 05/07/20 21:45 05/08/20 13:23 DC Memantine (Namenda) 10 mg DAILY PO 05/08/20 09:00 05/13/20 08:51 Neomycin/ Polymyxin/ Bacitracin (Triple Antibiotic Ointment) 1 pkt PRN DAILY PRN TP SKIN CLEANSING 05/07/20 21:45 Trazodone HCl (Desyrel) 100 mg QHS PO 05/08/20 21:00 05/07/20 22:05 DC Non-Formulary Medication (Melatonin ) 5 mg QHS PRN SL insomnia 05/07/20 21:45 05/07/20 22:05 DC Morphine Sulfate (Morphine Oral Solution) 5 mg PRN Q3HRS PRN PO MOD-SEV PAIN 05/07/20 22:45 Trazodone HCl (Desyrel) 100 mg QHS PO 05/07/20 23:00 05/12/20 19:43 Melatonin (Melatonin) 3 mg PRN QHS PRN PO INSOMNIA 05/07/20 22:45 05/08/20 13:23 DC 05/07/20 22:46 Lorazepam (Ativan) 0.25 mg PRN QHS PRN PO ANXIETY 05/08/20 21:00 05/11/20 23:41 Lorazepam (Ativan) 0.25 mg DAILY PO 05/09/20 09:00 05/13/20 09:00 DC 05/13/20 08:51 Sertraline HCl (Zoloft) 25 mg DAILY PO 05/09/20 09:00 05/11/20 09:59 DC 05/11/20 09:02 Sertraline HCl (Zoloft) 50 mg DAILY PO 05/12/20 09:00 05/13/20 08:51 Melatonin (Melatonin) 3 mg PRN QHS PRN PO INSOMNIA 05/11/20 18:15 05/12/20 19:43 Mirtazapine (Remeron) 7.5 mg QHS PO 05/11/20 21:00 05/12/20 17:49 DC 05/11/20 19:49 Mirtazapine (Remeron) 15 mg QHS PO 05/12/20 21:00 05/12/20 19:44 Current Medications Medications (Trade) Dose Ordered Sig/Desire Route PRN Reason Start Time Stop Time Status Last Admin Dose Admin Mirtazapine (Remeron) 15 mg QHS PO 05/12/20 21:00 05/12/20 19:44 I have reviewed the current psychotropics carefully including drug interactions. Risk benefit ratio favors no change other than as noted in my dictated progress note. Diagnosis: Problems: (1) Impulse control disorder, unspecified (2) Anxiety disorder, unspecified (3) Dementia, vascular, with depression (4) Dementia, vascular, with delusions (5) Dementia in Alzheimer's disease with depression (6) Dementia in Alzheimer's disease with delusions (7) Dementia of the Alzheimer's type with early onset with behavioral disturbance (8) Major neurocognitive disorder ELIAS WILLSON MD May 13, 2020 09:53
--- NOTE | 2020-05-13 10:24 | PDOC ---
Exam Note: Avtar Note: This note is a late entry for 05/12/2020 covers elements not covered in my initial note. Subjective: The patient was seen face to face in the evening of 05/12/2020 with Alexa LEYVA, discussed and reviewed the chart. He slept 3-1/2 hours previous night. He has been confused, wandering, restless. He received Ativan at 11 p.m. previous night. Review of Systems: No CV, pulmonary, eye, ENT system symptoms on review. Reliability poor. Mental Status Exam: The patient is oriented to himself. Insight and judgment, recent and remote memory, attention and concentration, fund of knowledge is poor consistent with his diagnosis. Laboratory Data: Reviewed. 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 Anxiety disorder unspecified. Impulse control disorder unspecified. Plan: No change from initial note. The patient is still not sleeping well on Remeron 7.5 mg h.s. we will increase Remeron to 15 mg h.s. Adjust further as clinically indicated. Assessment: Vital Signs/I&O: Vital Signs Date Time Temp Pulse Resp B/P (MAP) Pulse Ox O2 Delivery O2 Flow Rate FiO2 05/13/20 06:05 97.6 54 20 135/76 (95) 96 05/09/20 16:27 Room Air I & O 05/12/20 05/12/20 05/13/20 15:00 23:00 07:00 Intake Total 720 ml 540 ml Balance 720 ml 540 ml Labs: Laboratory Tests Test 05/12/20 19:35 05/12/20 22:50 White Blood Count 7.0 x10^3/uL (4.0-11.0) Red Blood Count 4.55 x10^6/uL (4.30-5.70) Hemoglobin 13.6 g/dL (13.0-17.5) Hematocrit 42.1 % (39.0-53.0) Mean Corpuscular Volume 93 fL (79-100) Mean Corpuscular Hemoglobin 30 pg (25-35) Mean Corpuscular Hemoglobin Concent 32 g/dL (31-37) Red Cell Distribution Width 14.6 % (11.5-14.5) H Platelet Count 156 x10^3/uL (140-400) Platelet Estimate Decreased (ADEQUATE) Large Platelets Mod Sodium Level 146 mmol/L (136-145) H Potassium Level 4.2 mmol/L (3.5-5.1) Chloride Level 109 mmol/L (98-107) H Carbon Dioxide Level 29 mmol/L (21-32) Anion Gap 8 (6-14) Blood Urea Nitrogen 35 mg/dL (8-26) H Creatinine 0.9 mg/dL (0.7-1.3) Estimated GFR (Cockcroft-Gault) 80.0 BUN/Creatinine Ratio 39 (6-20) H Glucose Level 117 mg/dL (70-99) H Lactic Acid Level 2.3 mmol/L (0.4-2.0) H 1.2 mmol/L (0.4-2.0) Calcium Level 8.8 mg/dL (8.5-10.1) Total Bilirubin 0.2 mg/dL (0.2-1.0) Aspartate Amino Transferase (AST) 13 U/L (15-37) L Alanine Aminotransferase (ALT) 19 U/L (16-63) Alkaline Phosphatase 116 U/L (46-116) Total Protein 6.6 g/dL (6.4-8.2) Albumin 3.1 g/dL (3.4-5.0) L Albumin/Globulin Ratio 0.9 (1.0-1.7) L Current Medications: Meds: Laboratory Tests Test 05/12/20 19:35 05/12/20 22:50 White Blood Count 7.0 x10^3/uL Red Blood Count 4.55 x10^6/uL Hemoglobin 13.6 g/dL Hematocrit 42.1 % Mean Corpuscular Volume 93 fL Mean Corpuscular Hemoglobin 30 pg Mean Corpuscular Hemoglobin Concent 32 g/dL Red Cell Distribution Width 14.6 % Platelet Count 156 x10^3/uL Platelet Estimate Decreased Large Platelets Mod Sodium Level 146 mmol/L Potassium Level 4.2 mmol/L Chloride Level 109 mmol/L Carbon Dioxide Level 29 mmol/L Anion Gap 8 Blood Urea Nitrogen 35 mg/dL Creatinine 0.9 mg/dL Estimated GFR (Cockcroft-Gault) 80.0 BUN/Creatinine Ratio 39 Glucose Level 117 mg/dL Lactic Acid Level 2.3 mmol/L 1.2 mmol/L Calcium Level 8.8 mg/dL Total Bilirubin 0.2 mg/dL Aspartate Amino Transf (AST/SGOT) 13 U/L Alanine Aminotransferase (ALT/SGPT) 19 U/L Alkaline Phosphatase 116 U/L Total Protein 6.6 g/dL Albumin 3.1 g/dL Albumin/Globulin Ratio 0.9 Current Medications Medications (Trade) Dose Ordered Sig/Desire Route PRN Reason Start Time Stop Time Status Last Admin Dose Admin Acetaminophen (Tylenol) 650 mg PRN Q6HRS PRN PO MILD PAIN / TEMP > 100.3'F 05/07/20 14:45 Multi-Ingredient Ointment (Analgesic [place]) 1 [place] PRN QID PRN TP MUSCLE PAIN 05/07/20 14:45 Al Hydroxide/Mg Hydroxide (Mylanta Plus Xs) 15 ml PRN AFTMEALHC PRN PO DYSPEPSIA 05/07/20 14:45 Magnesium Hydroxide (Milk Of Magnesia) 2,400 mg PRN QHS PRN PO CONSTIPATION 05/07/20 14:45 Acetaminophen (Tylenol) 500 mg PRN Q6HRS PRN PO MILD PAIN / TEMP > 100.3'F 05/07/20 21:45 UNV Lorazepam (Ativan) 0.25 mg DAILY PO 05/08/20 09:00 05/08/20 13:25 DC 05/08/20 08:20 Lorazepam (Ativan) 0.5 mg PRN QHS PRN PO ANXIETY 05/07/20 21:45 05/08/20 13:23 DC Memantine (Namenda) 10 mg DAILY PO 05/08/20 09:00 05/13/20 08:51 Neomycin/ Polymyxin/ Bacitracin (Triple Antibiotic Ointment) 1 pkt PRN DAILY PRN TP SKIN CLEANSING 05/07/20 21:45 Trazodone HCl (Desyrel) 100 mg QHS PO 05/08/20 21:00 05/07/20 22:05 DC Non-Formulary Medication (Melatonin ) 5 mg QHS PRN SL insomnia 05/07/20 21:45 05/07/20 22:05 DC Morphine Sulfate (Morphine Oral Solution) 5 mg PRN Q3HRS PRN PO MOD-SEV PAIN 05/07/20 22:45 Trazodone HCl (Desyrel) 100 mg QHS PO 05/07/20 23:00 05/12/20 19:43 Melatonin (Melatonin) 3 mg PRN QHS PRN PO INSOMNIA 05/07/20 22:45 05/08/20 13:23 DC 05/07/20 22:46 Lorazepam (Ativan) 0.25 mg PRN QHS PRN PO ANXIETY 05/08/20 21:00 05/11/20 23:41 Lorazepam (Ativan) 0.25 mg DAILY PO 05/09/20 09:00 05/13/20 09:00 DC 05/13/20 08:51 Sertraline HCl (Zoloft) 25 mg DAILY PO 05/09/20 09:00 05/11/20 09:59 DC 05/11/20 09:02 Sertraline HCl (Zoloft) 50 mg DAILY PO 05/12/20 09:00 05/13/20 08:51 Melatonin (Melatonin) 3 mg PRN QHS PRN PO INSOMNIA 05/11/20 18:15 05/12/20 19:43 Mirtazapine (Remeron) 7.5 mg QHS PO 05/11/20 21:00 05/12/20 17:49 DC 05/11/20 19:49 Mirtazapine (Remeron) 15 mg QHS PO 05/12/20 21:00 05/12/20 19:44 Current Medications Medications (Trade) Dose Ordered Sig/Desire Route PRN Reason Start Time Stop Time Status Last Admin Dose Admin Mirtazapine (Remeron) 15 mg QHS PO 05/12/20 21:00 05/12/20 19:44 I have reviewed the current psychotropics carefully including drug interactions. Risk benefit ratio favors no change other than as noted in my dictated progress note. Diagnosis: Problems: (1) Impulse control disorder, unspecified (2) Anxiety disorder, unspecified (3) Dementia, vascular, with depression (4) Dementia, vascular, with delusions (5) Dementia in Alzheimer's disease with depression (6) Dementia in Alzheimer's disease with delusions (7) Dementia of the Alzheimer's type with early onset with behavioral distu rbance (8) Major neurocognitive disorder ELIAS WILLSON MD May 13, 2020 10:24
[2020-05-13 15:29] VITALS: BP 90/60
[2020-05-13 19:22] VITALS: BP 120/59
[2020-05-13] MEDS: MIRTAZAPINE 15 MG TABLET PO SCH (19:28)
[2020-05-13] MEDS: traZODone 100 MG TABLET. PO SCH (19:28)
--- NOTE | 2020-05-13 21:05 | PDOC ---
Exam Note: Avtar Note: Please also refer to the separate dictated note~for this date of service dictated separately.~Patient seen individually. Discussed the patient with Nursing staff reviewed the chart.~Reviewed interim history and current functioning. Reviewed vital signs,~Labs/ Radiology~and current medications noted below. Continue current treatment with the changes noted in the dictated addendum note Assessment: Vital Signs/I&O: Vital Signs Date Time Temp Pulse Resp B/P (MAP) Pulse Ox O2 Delivery O2 Flow Rate FiO2 05/13/20 19:22 65 18 120/59 (79) 97 Room Air 05/13/20 15:29 97.3 I & O 05/12/20 05/12/20 05/13/20 15:00 23:00 07:00 Intake Total 720 ml 540 ml Balance 720 ml 540 ml Labs: Laboratory Tests Test 05/12/20 22:50 Lactic Acid Level 1.2 mmol/L (0.4-2.0) Current Medications: Meds: Laboratory Tests Test 05/12/20 22:50 Lactic Acid Level 1.2 mmol/L Current Medications Medications (Trade) Dose Ordered Sig/Desire Route PRN Reason Start Time Stop Time Status Last Admin Dose Admin Acetaminophen (Tylenol) 650 mg PRN Q6HRS PRN PO MILD PAIN / TEMP > 100.3'F 05/07/20 14:45 Multi-Ingredient Ointment (Analgesic [place]) 1 [place] PRN QID PRN TP MUSCLE PAIN 05/07/20 14:45 Al Hydroxide/Mg Hydroxide (Mylanta Plus Xs) 15 ml PRN AFTMEALHC PRN PO DYSPEPSIA 05/07/20 14:45 Magnesium Hydroxide (Milk Of Magnesia) 2,400 mg PRN QHS PRN PO CONSTIPATION 05/07/20 14:45 Acetaminophen (Tylenol) 500 mg PRN Q6HRS PRN PO MILD PAIN / TEMP > 100.3'F 05/07/20 21:45 UNV Lorazepam (Ativan) 0.25 mg DAILY PO 05/08/20 09:00 05/08/20 13:25 DC 05/08/20 08:20 Lorazepam (Ativan) 0.5 mg PRN QHS PRN PO ANXIETY 05/07/20 21:45 05/08/20 13:23 DC Memantine (Namenda) 10 mg DAILY PO 05/08/20 09:00 05/13/20 08:51 Neomycin/ Polymyxin/ Bacitracin (Triple Antibiotic Ointment) 1 pkt PRN DAILY PRN TP SKIN CLEANSING 05/07/20 21:45 Trazodone HCl (Desyrel) 100 mg QHS PO 05/08/20 21:00 05/07/20 22:05 DC Non-Formulary Medication (Melatonin ) 5 mg QHS PRN SL insomnia 05/07/20 21:45 05/07/20 22:05 DC Morphine Sulfate (Morphine Oral Solution) 5 mg PRN Q3HRS PRN PO MOD-SEV PAIN 05/07/20 22:45 Trazodone HCl (Desyrel) 100 mg QHS PO 05/07/20 23:00 05/13/20 19:28 Melatonin (Melatonin) 3 mg PRN QHS PRN PO INSOMNIA 05/07/20 22:45 05/08/20 13:23 DC 05/07/20 22:46 Lorazepam (Ativan) 0.25 mg PRN QHS PRN PO ANXIETY 05/08/20 21:00 05/11/20 23:41 Lorazepam (Ativan) 0.25 mg DAILY PO 05/09/20 09:00 05/13/20 09:00 DC 05/13/20 08:51 Sertraline HCl (Zoloft) 25 mg DAILY PO 05/09/20 09:00 05/11/20 09:59 DC 05/11/20 09:02 Sertraline HCl (Zoloft) 50 mg DAILY PO 05/12/20 09:00 05/13/20 08:51 Melatonin (Melatonin) 3 mg PRN QHS PRN PO INSOMNIA 05/11/20 18:15 05/12/20 19:43 Mirtazapine (Remeron) 7.5 mg QHS PO 05/11/20 21:00 05/12/20 17:49 DC 05/11/20 19:49 Mirtazapine (Remeron) 15 mg QHS PO 05/12/20 21:00 05/13/20 19:28 I have reviewed the current psychotropics carefully including drug interactions. Risk benefit ratio favors no change other than as noted in my dictated progress note. Diagnosis: Problems: (1) Impulse control disorder, unspecified (2) Anxiety disorder, unspecified (3) Dementia, vascular, with depression (4) Dementia, vascular, with delusions (5) Dementia in Alzheimer's disease with depression (6) Dementia in Alzheimer's disease with delusions (7) Dementia of the Alzheimer's type with early onset with behavioral disturbance (8) Major neurocognitive disorder ELIAS WILLSON MD May 13, 2020 21:05
[2020-05-13] MEDS: LORazepam 0.5 MG TABLET PO PRN (21:46)
[2020-05-13] MEDS: MELATONIN 3 MG TABLET PO PRN (21:46)
[2020-05-14 05:52] VITALS: BP 142/71
--- NOTE | 2020-05-14 07:37 | PDOC ---
Exam Note: Avtar Note: This note is a late entry for 05/13/2020 covers elements not covered in my initial note. Subjective: The patient was seen face to face in the evening of 05/13/2020 with Shyam LEYVA, discussed and reviewed the chart. He slept 8 hours previous night. He slept in late in the morning. Speech is garbled. He was trying to lift a sofa in the evening as I met with him, totally oblivious of his surroundings. He did go out, sat on the patio, had made no attempts to elope and is compliant with medications. Review of Systems: No CV, pulmonary, eye, ENT system symptoms on review. Reliability poor. Mental Status Exam: The patient is oriented to himself. Insight and judgment, recent and remote memory, attention and concentration, fund of knowledge is poor consistent with his diagnosis. Laboratory Data: Reviewed. 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 Anxiety disorder unspecified. Impulse control disorder unspecified. Plan: No change from initial note. We are tapering the Ativan. Continue Remeron, Namenda, trazodone, Zoloft. Consider Depakote if agitation or aggress ion persists. Assessment: Vital Signs/I&O: Vital Signs Date Time Temp Pulse Resp B/P (MAP) Pulse Ox O2 Delivery O2 Flow Rate FiO2 05/14/20 05:52 97.8 67 18 142/71 (94) 94 05/13/20 19:22 Room Air I & O 05/13/20 05/13/20 05/14/20 15:00 23:00 07:00 Intake Total 360 ml 900 ml Balance 360 ml 900 ml Current Medications: Meds: Current Medications Medications (Trade) Dose Ordered Sig/Desire Route PRN Reason Start Time Stop Time Status Last Admin Dose Admin Acetaminophen (Tylenol) 650 mg PRN Q6HRS PRN PO MILD PAIN / TEMP > 100.3'F 05/07/20 14:45 Multi-Ingredient Ointment (Analgesic [place]) 1 [place] PRN QID PRN TP MUSCLE PAIN 05/07/20 14:45 Al Hydroxide/Mg Hydroxide (Mylanta Plus Xs) 15 ml PRN AFTMEALHC PRN PO DYSPEPSIA 05/07/20 14:45 Magnesium Hydroxide (Milk Of Magnesia) 2,400 mg PRN QHS PRN PO CONSTIPATION 05/07/20 14:45 Acetaminophen (Tylenol) 500 mg PRN Q6HRS PRN PO MILD PAIN / TEMP > 100.3'F 05/07/20 21:45 UNV Lorazepam (Ativan) 0.25 mg DAILY PO 05/08/20 09:00 05/08/20 13:25 DC 05/08/20 08:20 Lorazepam (Ativan) 0.5 mg PRN QHS PRN PO ANXIETY 05/07/20 21:45 05/08/20 13:23 DC Memantine (Namenda) 10 mg DAILY PO 05/08/20 09:00 05/13/20 08:51 Neomycin/ Polymyxin/ Bacitracin (Triple Antibiotic Ointment) 1 pkt PRN DAILY PRN TP SKIN CLEANSING 05/07/20 21:45 Trazodone HCl (Desyrel) 100 mg QHS PO 05/08/20 21:00 05/07/20 22:05 DC Non-Formulary Medication (Melatonin ) 5 mg QHS PRN SL insomnia 05/07/20 21:45 05/07/20 22:05 DC Morphine Sulfate (Morphine Oral Solution) 5 mg PRN Q3HRS PRN PO MOD-SEV PAIN 05/07/20 22:45 Trazodone HCl (Desyrel) 100 mg QHS PO 05/07/20 23:00 05/13/20 19:28 Melatonin (Melatonin) 3 mg PRN QHS PRN PO INSOMNIA 05/07/20 22:45 05/08/20 13:23 DC 05/07/20 22:46 Lorazepam (Ativan) 0.25 mg PRN QHS PRN PO ANXIETY 05/08/20 21:00 05/13/20 21:46 Lorazepam (Ativan) 0.25 mg DAILY PO 05/09/20 09:00 05/13/20 09:00 DC 05/13/20 08:51 Sertraline HCl (Zoloft) 25 mg DAILY PO 05/09/20 09:00 05/11/20 09:59 DC 05/11/20 09:02 Sertraline HCl (Zoloft) 50 mg DAILY PO 05/12/20 09:00 05/13/20 08:51 Melatonin (Melatonin) 3 mg PRN QHS PRN PO INSOMNIA 05/11/20 18:15 05/13/20 21:46 Mirtazapine (Remeron) 7.5 mg QHS PO 05/11/20 21:00 05/12/20 17:49 DC 05/11/20 19:49 Mirtazapine (Remeron) 15 mg QHS PO 05/12/20 21:00 05/13/20 19:28 I have reviewed the current psychotropics carefully including drug interactions. Risk benefit ratio favors no change other than as noted in my dictated progress note. Diagnosis: Problems: (1) Impulse control disorder, unspecified (2) Anxiety disorder, unspecified (3) Dementia, vascular, with depression (4) Dementia, vascular, with delusions (5) Dementia in Alzheimer's disease with depression (6) Dementia in Alzheimer's disease with delusions (7) Dementia of the Alzheimer's type with early onset with behavioral disturbance (8) Major neurocognitive disorder ELIAS WILLSON MD May 14, 2020 07:37
[2020-05-14] MEDS: MEMANTINE 10 MG TABLET. PO SCH (07:50)
[2020-05-14] MEDS: SERTRALINE 50 MG TABLET. PO SCH (07:50)
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
[2020-05-14 17:31] VITALS: BP 137/79
[2020-05-14] MEDS: MELATONIN 3 MG TABLET PO PRN (19:30)
[2020-05-14] MEDS: MIRTAZAPINE 15 MG TABLET PO SCH (19:30)
[2020-05-14] MEDS: traZODone 100 MG TABLET. PO SCH (19:30)
[2020-05-14] MEDS: QUEtiapine 25 MG TABLET. PO SCH (19:30)
--- NOTE | 2020-05-14 21:02 | PDOC ---
Exam Note: Avtar Note: Please also refer to the separate dictated note~for this date of service dictated separately.~Patient seen individually. Discussed the patient with Nursing staff reviewed the chart.~Reviewed interim history and current functioning. Reviewed vital signs,~Labs/ Radiology~and current medications noted below. Continue current treatment with the changes noted in the dictated addendum note Assessment: Vital Signs/I&O: Vital Signs Date Time Temp Pulse Resp B/P (MAP) Pulse Ox O2 Delivery O2 Flow Rate FiO2 05/14/20 17:31 98.2 83 20 137/79 (98) 98 05/14/20 15:30 Room Air I & O 05/13/20 05/13/20 05/14/20 15:00 23:00 07:00 Intake Total 360 ml 900 ml Balance 360 ml 900 ml Current Medications: Meds: Current Medications Medications (Trade) Dose Ordered Sig/Desire Route PRN Reason Start Time Stop Time Status Last Admin Dose Admin Quetiapine Fumarate (SEROquel) 25 mg QHS PO 05/14/20 21:00 05/14/20 19:30 I have reviewed the current psychotropics carefully including drug interactions. Risk benefit ratio favors no change other than as noted in my dictated progress note. Diagnosis: Problems: (1) Impulse control disorder, unspecified (2) Anxiety disorder, unspecified (3) Dementia, vascular, with depression (4) Dementia, vascular, with delusions (5) Dementia in Alzheimer's disease with depression (6) Dementia in Alzheimer's disease with delusions (7) Dementia of the Alzheimer's type with early onset with behavioral disturbance (8) Major neurocognitive disorder ELIAS WILLSON MD May 14, 2020 21:02
[2020-05-15 05:55] VITALS: BP 134/55
[2020-05-15 06:56] LABS: BASO % 1 % (0-3); EOS # 0.3 x10^3/uL (0.0-0.7); EOS % 5 % (0-3); HEMATOCRIT 38.8 % (39.0-53.0); HEMOGLOBIN 12.5 g/dL (13.0-17.5); LYMPH # 1.4 x10^3/uL (1.0-4.8); LYMPH % 23 % (24-48); MEAN CORPUSCULAR HEMOGLOBIN 30 pg (25-35); MEAN CORPUSCULAR HGB CONC 32 g/dL (31-37); MEAN CORPUSCULAR VOLUME 93 fL (79-100); MONO # 0.7 x10^3/uL (0.0-1.1); MONO % 11 % (0-9); NEUT # 3.6 x10^3uL (1.8-7.7); NEUT % 60 % (31-73); PLATELET COUNT 141 x10^3/uL (140-400); RED BLOOD COUNT 4.18 x10^6/uL (4.30-5.70); RED CELL DISTRIBUTION WIDTH 14.3 % (11.5-14.5); WHITE BLOOD COUNT 5.9 x10^3/uL (4.0-11.0)
[2020-05-15 07:03] LABS: ALBUMIN 2.8 g/dL (3.4-5.0); ALBUMIN/GLOBULIN RATIO 0.9 (1.0-1.7); CALCIUM 8.2 mg/dL (8.5-10.1); CREATININE 0.8 mg/dL (0.7-1.3); GFR 91.7; POTASSIUM 4.2 mmol/L (3.5-5.1); TOTAL BILIRUBIN 0.2 mg/dL (0.2-1.0)
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
[2020-05-15] MEDS: MEMANTINE 10 MG TABLET. PO SCH (08:52)
[2020-05-15] MEDS: SERTRALINE 50 MG TABLET. PO SCH (08:52)
[2020-05-15 16:13] VITALS: BP 137/83
--- NOTE | 2020-05-15 20:49 | PDOC ---
Exam Note: Avtar Note: Please also refer to the separate dictated note~for this date of service dictated separately.~Patient seen individually. Discussed the patient with Nursing staff reviewed the chart.~Reviewed interim history and current functioning. Reviewed vital signs,~Labs/ Radiology~and current medications noted below. Continue current treatment with the changes noted in the dictated addendum note Assessment: Vital Signs/I&O: Vital Signs Date Time Temp Pulse Resp B/P (MAP) Pulse Ox O2 Delivery O2 Flow Rate FiO2 05/15/20 16:13 97.6 67 17 137/83 (101) 98 Room Air I & O 05/14/20 05/14/20 05/15/20 15:00 23:00 07:00 Intake Total 480 ml 440 ml Balance 480 ml 440 ml Labs: Laboratory Tests Test 05/15/20 06:13 White Blood Count 5.9 x10^3/uL (4.0-11.0) Red Blood Count 4.18 x10^6/uL (4.30-5.70) L Hemoglobin 12.5 g/dL (13.0-17.5) L Hematocrit 38.8 % (39.0-53.0) L Mean Corpuscular Volume 93 fL (79-100) Mean Corpuscular Hemoglobin 30 pg (25-35) Mean Corpuscular Hemoglobin Concent 32 g/dL (31-37) Red Cell Distribution Width 14.3 % (11.5-14.5) Platelet Count 141 x10^3/uL (140-400) Neutrophils (%) (Auto) 60 % (31-73) Lymphocytes (%) (Auto) 23 % (24-48) L Monocytes (%) (Auto) 11 % (0-9) H Eosinophils (%) (Auto) 5 % (0-3) H Basophils (%) (Auto) 1 % (0-3) Neutrophils # (Auto) 3.6 x10^3uL (1.8-7.7) Lymphocytes # (Auto) 1.4 x10^3/uL (1.0-4.8) Monocytes # (Auto) 0.7 x10^3/uL (0.0-1.1) Eosinophils # (Auto) 0.3 x10^3/uL (0.0-0.7) Basophils # (Auto) 0.0 x10^3/uL (0.0-0.2) Sodium Level 146 mmol/L (136-145) H Potassium Level 4.2 mmol/L (3.5-5.1) Chloride Level 109 mmol/L (98-107) H Carbon Dioxide Level 30 mmol/L (21-32) Anion Gap 7 (6-14) Blood Urea Nitrogen 28 mg/dL (8-26) H Creatinine 0.8 mg/dL (0.7-1.3) Estimated GFR (Cockcroft-Gault) 91.7 BUN/Creatinine Ratio 35 (6-20) H Glucose Level 94 mg/dL (70-99) Calcium Level 8.2 mg/dL (8.5-10.1) L Total Bilirubin 0.2 mg/dL (0.2-1.0) Aspartate Amino Transferase (AST) 18 U/L (15-37) Alanine Aminotransferase (ALT) 20 U/L (16-63) Alkaline Phosphatase 103 U/L (46-116) Total Protein 6.0 g/dL (6.4-8.2) L Albumin 2.8 g/dL (3.4-5.0) L Albumin/Globulin Ratio 0.9 (1.0-1.7) L Current Medications: Meds: Current Medications Medications (Trade) Dose Ordered Sig/Desire Route PRN Reason Start Time Stop Time Status Last Admin Dose Admin Sertraline HCl (Zoloft) 75 mg DAILY PO 05/15/20 09:00 05/15/20 08:52 Quetiapine Fumarate (SEROquel) 25 mg QHS PO 05/14/20 21:00 05/14/20 19:30 I have reviewed the current psychotropics carefully including drug interactions. Risk benefit ratio favors no change other than as noted in my dictated progress note. Diagnosis: Problems: (1) Impulse control disorder, unspecified (2) Anxiety disorder, unspecified (3) Dementia, vascular, with depression (4) Dementia, vascular, with delusions (5) Dementia in Alzheimer's disease with depression (6) Dementia in Alzheimer's disease with delusions (7) Dementia of the Alzheimer's type with early onset with behavioral disturbance (8) Major neurocognitive disorder ELIAS WILLSON MD May 15, 2020 20:49
[2020-05-15] MEDS: traZODone 100 MG TABLET. PO SCH (21:00)
[2020-05-15] MEDS: QUEtiapine 25 MG TABLET. PO SCH (21:02)
[2020-05-15] MEDS: MIRTAZAPINE 15 MG TABLET PO SCH (21:02)
[2020-05-16 05:23] VITALS: BP 146/71
[2020-05-16] MEDS: QUEtiapine 25 MG TABLET. PO SCH ×3 (08:38→19:27)
[2020-05-16] MEDS: SERTRALINE 50 MG TABLET. PO SCH (08:38)
[2020-05-16 16:14] VITALS: BP 115/60
[2020-05-16] MEDS: traZODone 100 MG TABLET. PO SCH (19:27)
[2020-05-16] MEDS: AMITRIPTYLINE HCL 25 MG TABLET PO SCH (19:27)
[2020-05-16] MEDS: MELATONIN 3 MG TABLET PO PRN (19:28)
--- NOTE | 2020-05-16 21:28 | PDOC ---
Exam Note: Avtar Note: Please also refer to the separate dictated note~for this date of service dictated separately.~Patient seen individually. Discussed the patient with Nursing staff reviewed the chart.~Reviewed interim history and current functioning. Reviewed vital signs,~Labs/ Radiology~and current medications noted below. Continue current treatment with the changes noted in the dictated addendum note Assessment: Vital Signs/I&O: Vital Signs Date Time Temp Pulse Resp B/P (MAP) Pulse Ox O2 Delivery O2 Flow Rate FiO2 05/16/20 16:14 97.2 62 18 115/60 (78) 96 05/16/20 05:23 Room Air I & O 05/15/20 05/15/20 05/16/20 15:00 23:00 07:00 Intake Total 240 ml 480 ml Balance 240 ml 480 ml Current Medications: Meds: Current Medications Medications (Trade) Dose Ordered Sig/Desire Route PRN Reason Start Time Stop Time Status Last Admin Dose Admin Quetiapine Fumarate (SEROquel) 12.5 mg 0900,1700 PO 05/16/20 09:00 05/16/20 08:38 Amitriptyline HCl (Elavil) 25 mg QHS PO 05/16/20 21:00 05/16/20 19:27 I have reviewed the current psychotropics carefully including drug interactions. Risk benefit ratio favors no change other than as noted in my dictated progress note. Diagnosis: Problems: (1) Impulse control disorder, unspecified (2) Anxiety disorder, unspecified (3) Dementia, vascular, with depression (4) Dementia, vascular, with delusions (5) Dementia in Alzheimer's disease with depression (6) Dementia in Alzheimer's disease with delusions (7) Dementia of the Alzheimer's type with early onset with behavioral disturbance (8) Major neurocognitive disorder ELIAS WILLSON MD May 16, 2020 21:28
[2020-05-17 06:31] VITALS: BP 131/67
--- NOTE | 2020-05-17 07:39 | PDOC ---
Exam Note: Avtar Note: This note is a late entry for 05/15/2020 covers elements not covered in my initial note. Subjective: The patient was seen individually in the evening of 05/15/2020 with Shyam LEYVA, discussed and reviewed the chart. He slept 6-1/4 hours previous night. The patient remains confused, restless previous night, moving all the time, feeding himself in the dining room later. Review of Systems: No CV, pulmonary, eye, ENT system symptoms on review. Mental Status Exam: The patient is oriented to himself. Insight and judgment, recent and remote memory, attention and concentration, fund of knowledge is poor consistent with his diagnosis. Laboratory Data: Reviewed. 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 Anxiety disorder unspecified. Impulse control disorder unspecified. Plan: Continue psychotropics from initial note. Start Seroquel 12.5 mg 9 a.m. and 5 p.m. Rest unchanged for now. Assessment: Vital Signs/I&O: Vital Signs Date Time Temp Pulse Resp B/P (MAP) Pulse Ox O2 Delivery O2 Flow Rate FiO2 05/17/20 06:31 98.5 52 14 131/67 (88) 95 Room Air I & O 05/16/20 05/16/20 05/17/20 14:59 22:59 06:59 Intake Total 600 ml 0 ml Balance 600 ml 0 ml Current Medications: Meds: Current Medications Medications (Trade) Dose Ordered Sig/Desire Route PRN Reason Start Time Stop Time Status Last Admin Dose Admin Acetaminophen (Tylenol) 650 mg PRN Q6HRS PRN PO MILD PAIN / TEMP > 100.3'F 05/07/20 14:45 Multi-Ingredient Ointment (Analgesic [place]) 1 [place] PRN QID PRN TP MUSCLE PAIN 05/07/20 14:45 Al Hydroxide/Mg Hydroxide (Mylanta Plus Xs) 15 ml PRN AFTMEALHC PRN PO DYSPEPSIA 05/07/20 14:45 Magnesium Hydroxide (Milk Of Magnesia) 2,400 mg PRN QHS PRN PO CONSTIPATION 05/07/20 14:45 Acetaminophen (Tylenol) 500 mg PRN Q6HRS PRN PO MILD PAIN / TEMP > 100.3'F 05/07/20 21:45 UNV Lorazepam (Ativan) 0.25 mg DAILY PO 05/08/20 09:00 05/08/20 13:25 DC 05/08/20 08:20 Lorazepam (Ativan) 0.5 mg PRN QHS PRN PO ANXIETY 05/07/20 21:45 05/08/20 13:23 DC Memantine (Namenda) 10 mg DAILY PO 05/08/20 09:00 05/15/20 17:45 DC 05/15/20 08:52 Neomycin/ Polymyxin/ Bacitracin (Triple Antibiotic Ointment) 1 pkt PRN DAILY PRN TP SKIN CLEANSING 05/07/20 21:45 Trazodone HCl (Desyrel) 100 mg QHS PO 05/08/20 21:00 05/07/20 22:05 DC Non-Formulary Medication (Melatonin ) 5 mg QHS PRN SL insomnia 05/07/20 21:45 05/07/20 22:05 DC Morphine Sulfate (Morphine Oral Solution) 5 mg PRN Q3HRS PRN PO MOD-SEV PAIN 05/07/20 22:45 05/14/20 14:22 Trazodone HCl (Desyrel) 100 mg QHS PO 05/07/20 23:00 05/16/20 19:27 Melatonin (Melatonin) 3 mg PRN QHS PRN PO INSOMNIA 05/07/20 22:45 05/08/20 13:23 DC 05/07/20 22:46 Lorazepam (Ativan) 0.25 mg PRN QHS PRN PO ANXIETY 05/08/20 21:00 05/13/20 21:46 Lorazepam (Ativan) 0.25 mg DAILY PO 05/09/20 09:00 05/13/20 09:00 DC 05/13/20 08:51 Sertraline HCl (Zoloft) 25 mg DAILY PO 05/09/20 09:00 05/11/20 09:59 DC 05/11/20 09:02 Sertraline HCl (Zoloft) 50 mg DAILY PO 05/12/20 09:00 05/14/20 10:49 DC 05/14/20 07:50 Melatonin (Melatonin) 3 mg PRN QHS PRN PO INSOMNIA 05/11/20 18:15 05/16/20 19:28 Mirtazapine (Remeron) 7.5 mg QHS PO 05/11/20 21:00 05/12/20 17:49 DC 05/11/20 19:49 Mirtazapine (Remeron) 15 mg QHS PO 05/12/20 21:00 05/16/20 17:50 DC 05/15/20 21:02 Sertraline HCl (Zoloft) 75 mg DAILY PO 05/15/20 09:00 05/16/20 08:38 Quetiapine Fumarate (SEROquel) 25 mg QHS PO 05/14/20 21:00 05/16/20 19:27 Olanzapine (ZyPREXA ZYDIS) 2.5 mg PRN Q2HR PRN PO PSYCHOSIS 05/15/20 09:45 05/16/20 19:27 Quetiapine Fumarate (SEROquel) 12.5 mg 0900,1700 PO 05/16/20 09:00 05/16/20 08:38 Amitriptyline HCl (Elavil) 25 mg QHS PO 05/16/20 21:00 05/16/20 19:27 Current Medications Medications (Trade) Dose Ordered Sig/Desire Route PRN Reason Start Time Stop Time Status Last Admin Dose Admin Quetiapine Fumarate (SEROquel) 12.5 mg 0900,1700 PO 05/16/20 09:00 05/16/20 08:38 Amitriptyline HCl (Elavil) 25 mg QHS PO 05/16/20 21:00 05/16/20 19:27 I have reviewed the current psychotropics carefully including drug interactions. Risk benefit ratio favors no change other than as noted in my dictated progress note. Diagnosis: Problems: (1) Impulse control disorder, unspecified (2) Anxiety disorder, unspecified (3) Dementia, vascular, with depression (4) Dementia, vascular, with delusions (5) Dementia in Alzheimer's disease with depression (6) Dementia in Alzheimer's disease with delusions (7) Dementia of the Alzheimer's type with early onset with behavioral disturbance (8) Major neurocognitive disorder ELIAS WILLSON MD May 17, 2020 07:39
--- NOTE | 2020-05-17 07:57 | PDOC ---
Exam Note: Avtar Note: This note is a late entry for 05/16/2020 covers elements not covered in my initial note. Subjective: The patient was seen individually in the evening of 05/16/2020 with Lina LEYVA, discussed and reviewed the chart. He slept 1-3/4 hours previous night. The patient remains confused, restless, intrusive, dumped his soup out, was agitated, aggressive, flipping over a chair, which is rather heavy. He slept very poorly previous night. He received Zyprexa at 12.40 p.m. Review of Systems: No CV, pulmonary, eye, ENT system symptoms on review. Reliability poor. Mental Status Exam: The patient is oriented to himself. He was quite paranoid as I met with him individually, suspicious, distractible, not very verbally interactive. Insight and judgment, recent and remote memory, attention and concentration, fund of knowledge is poor consistent with his diagnosis. Laboratory Data: Reviewed. 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 Anxiety disorder unspecified. Impulse control disorder unspecified. Plan: The patient is not sleeping well despite trazodone and Remeron 15 mg. We will change the Remeron to amitriptyline 25 mg h.s. Continue rest unchanged. Assessment: Vital Signs/I&O: Vital Signs Date Time Temp Pulse Resp B/P (MAP) Pulse Ox O2 Delivery O2 Flow Rate FiO2 05/17/20 06:31 98.5 52 14 131/67 (88) 95 Room Air I & O 05/16/20 05/16/20 05/17/20 15:00 23:00 07:00 Intake Total 600 ml 0 ml Balance 600 ml 0 ml Current Medications: Meds: Current Medications Medications (Trade) Dose Ordered Sig/Desire Route PRN Reason Start Time Stop Time Status Last Admin Dose Admin Acetaminophen (Tylenol) 650 mg PRN Q6HRS PRN PO MILD PAIN / TEMP > 100.3'F 05/07/20 14:45 Multi-Ingredient Ointment (Analgesic [place]) 1 [place] PRN QID PRN TP MUSCLE PAIN 05/07/20 14:45 Al Hydroxide/Mg Hydroxide (Mylanta Plus Xs) 15 ml PRN AFTMEALHC PRN PO DYSPEPSIA 05/07/20 14:45 Magnesium Hydroxide (Milk Of Magnesia) 2,400 mg PRN QHS PRN PO CONSTIPATION 05/07/20 14:45 Acetaminophen (Tylenol) 500 mg PRN Q6HRS PRN PO MILD PAIN / TEMP > 100.3'F 05/07/20 21:45 UNV Lorazepam (Ativan) 0.25 mg DAILY PO 05/08/20 09:00 05/08/20 13:25 DC 05/08/20 08:20 Lorazepam (Ativan) 0.5 mg PRN QHS PRN PO ANXIETY 05/07/20 21:45 05/08/20 13:23 DC Memantine (Namenda) 10 mg DAILY PO 05/08/20 09:00 05/15/20 17:45 DC 05/15/20 08:52 Neomycin/ Polymyxin/ Bacitracin (Triple Antibiotic Ointment) 1 pkt PRN DAILY PRN TP SKIN CLEANSING 05/07/20 21:45 Trazodone HCl (Desyrel) 100 mg QHS PO 05/08/20 21:00 05/07/20 22:05 DC Non-Formulary Medication (Melatonin ) 5 mg QHS PRN SL insomnia 05/07/20 21:45 05/07/20 22:05 DC Morphine Sulfate (Morphine Oral Solution) 5 mg PRN Q3HRS PRN PO MOD-SEV PAIN 05/07/20 22:45 05/14/20 14:22 Trazodone HCl (Desyrel) 100 mg QHS PO 05/07/20 23:00 05/16/20 19:27 Melatonin (Melatonin) 3 mg PRN QHS PRN PO INSOMNIA 05/07/20 22:45 05/08/20 13:23 DC 05/07/20 22:46 Lorazepam (Ativan) 0.25 mg PRN QHS PRN PO ANXIETY 05/08/20 21:00 05/13/20 21:46 Lorazepam (Ativan) 0.25 mg DAILY PO 05/09/20 09:00 05/13/20 09:00 DC 05/13/20 08:51 Sertraline HCl (Zoloft) 25 mg DAILY PO 05/09/20 09:00 05/11/20 09:59 DC 05/11/20 09:02 Sertraline HCl (Zoloft) 50 mg DAILY PO 05/12/20 09:00 05/14/20 10:49 DC 05/14/20 07:50 Melatonin (Melatonin) 3 mg PRN QHS PRN PO INSOMNIA 05/11/20 18:15 05/16/20 19:28 Mirtazapine (Remeron) 7.5 mg QHS PO 05/11/20 21:00 05/12/20 17:49 DC 05/11/20 19:49 Mirtazapine (Remeron) 15 mg QHS PO 05/12/20 21:00 05/16/20 17:50 DC 05/15/20 21:02 Sertraline HCl (Zoloft) 75 mg DAILY PO 05/15/20 09:00 05/16/20 08:38 Quetiapine Fumarate (SEROquel) 25 mg QHS PO 05/14/20 21:00 05/16/20 19:27 Olanzapine (ZyPREXA ZYDIS) 2.5 mg PRN Q2HR PRN PO PSYCHOSIS 05/15/20 09:45 05/16/20 19:27 Quetiapine Fumarate (SEROquel) 12.5 mg 0900,1700 PO 05/16/20 09:00 05/16/20 08:38 Amitriptyline HCl (Elavil) 25 mg QHS PO 05/16/20 21:00 05/16/20 19:27 Current Medications Medications (Trade) Dose Ordered Sig/Desire Route PRN Reason Start Time Stop Time Status Last Admin Dose Admin Quetiapine Fumarate (SEROquel) 12.5 mg 0900,1700 PO 05/16/20 09:00 05/16/20 08:38 Amitriptyline HCl (Elavil) 25 mg QHS PO 05/16/20 21:00 05/16/20 19:27 I have reviewed the current psychotropics carefully including drug interactions. Risk benefit ratio favors no change other than as noted in my dictated progress note. Diagnosis: Problems: (1) Impulse control disorder, unspecified (2) Anxiety disorder, unspecified (3) Dementia, vascular, with depression (4) Dementia, vascular, with delusions (5) Dementia in Alzheimer's disease with depression (6) Dementia in Alzheimer's disease with delusions (7) Dementia of the Alzheimer's type with early onset with behavioral disturbance (8) Major neurocognitive disorder ELIAS WILLSON MD May 17, 2020 07:57
[2020-05-17] MEDS: SERTRALINE 50 MG TABLET. PO SCH (09:42)
[2020-05-17] MEDS: QUEtiapine 25 MG TABLET. PO SCH ×3 (09:43→19:22)
[2020-05-17 16:15] VITALS: BP 125/60
[2020-05-17] MEDS: AMITRIPTYLINE HCL 25 MG TABLET PO SCH (19:22)
[2020-05-17] MEDS: traZODone 100 MG TABLET. PO SCH (19:22)
[2020-05-17] MEDS: MELATONIN 3 MG TABLET PO PRN (19:23)
--- NOTE | 2020-05-17 21:03 | PDOC ---
Exam Note: Avtar Note: Please also refer to the separate dictated note~for this date of service dictated separately.~Patient seen individually. Discussed the patient with Nursing staff reviewed the chart.~Reviewed interim history and current functioning. Reviewed vital signs,~Labs/ Radiology~and current medications noted below. Continue current treatment with the changes noted in the dictated addendum note Assessment: Vital Signs/I&O: Vital Signs Date Time Temp Pulse Resp B/P (MAP) Pulse Ox O2 Delivery O2 Flow Rate FiO2 05/17/20 16:15 97.9 66 17 125/60 (81) 97 Room Air I & O 05/16/20 05/16/20 05/17/20 15:00 23:00 07:00 Intake Total 600 ml 0 ml Balance 600 ml 0 ml Current Medications: Meds: Current Medications Medications (Trade) Dose Ordered Sig/Desire Route PRN Reason Start Time Stop Time Status Last Admin Dose Admin Acetaminophen (Tylenol) 650 mg PRN Q6HRS PRN PO MILD PAIN / TEMP > 100.3'F 05/07/20 14:45 Multi-Ingredient Ointment (Analgesic [place]) 1 gar[place] PRN QID PRN TP MUSCLE PAIN 05/07/20 14:45 Al Hydroxide/Mg Hydroxide (Mylanta Plus Xs) 15 ml PRN AFTMEALHC PRN PO DYSPEPSIA 05/07/20 14:45 Magnesium Hydroxide (Milk Of Magnesia) 2,400 mg PRN QHS PRN PO CONSTIPATION 05/07/20 14:45 Acetaminophen (Tylenol) 500 mg PRN Q6HRS PRN PO MILD PAIN / TEMP > 100.3'F 05/07/20 21:45 UNV Lorazepam (Ativan) 0.25 mg DAILY PO 05/08/20 09:00 05/08/20 13:25 DC 05/08/20 08:20 Lorazepam (Ativan) 0.5 mg PRN QHS PRN PO ANXIETY 05/07/20 21:45 05/08/20 13:23 DC Memantine (Namenda) 10 mg DAILY PO 05/08/20 09:00 05/15/20 17:45 DC 05/15/20 08:52 Neomycin/ Polymyxin/ Bacitracin (Triple Antibiotic Ointment) 1 pkt PRN DAILY PRN TP SKIN CLEANSING 05/07/20 21:45 Trazodone HCl (Desyrel) 100 mg QHS PO 05/08/20 21:00 05/07/20 22:05 DC Non-Formulary Medication (Melatonin ) 5 mg QHS PRN SL insomnia 05/07/20 21:45 05/07/20 22:05 DC Morphine Sulfate (Morphine Oral Solution) 5 mg PRN Q3HRS PRN PO MOD-SEV PAIN 05/07/20 22:45 05/14/20 14:22 Trazodone HCl (Desyrel) 100 mg QHS PO 05/07/20 23:00 05/17/20 19:22 Melatonin (Melatonin) 3 mg PRN QHS PRN PO INSOMNIA 05/07/20 22:45 05/08/20 13:23 DC 05/07/20 22:46 Lorazepam (Ativan) 0.25 mg PRN QHS PRN PO ANXIETY 05/08/20 21:00 05/13/20 21:46 Lorazepam (Ativan) 0.25 mg DAILY PO 05/09/20 09:00 05/13/20 09:00 DC 05/13/20 08:51 Sertraline HCl (Zoloft) 25 mg DAILY PO 05/09/20 09:00 05/11/20 09:59 DC 05/11/20 09:02 Sertraline HCl (Zoloft) 50 mg DAILY PO 05/12/20 09:00 05/14/20 10:49 DC 05/14/20 07:50 Melatonin (Melatonin) 3 mg PRN QHS PRN PO INSOMNIA 05/11/20 18:15 05/17/20 19:23 Mirtazapine (Remeron) 7.5 mg QHS PO 05/11/20 21:00 05/12/20 17:49 DC 05/11/20 19:49 Mirtazapine (Remeron) 15 mg QHS PO 05/12/20 21:00 05/16/20 17:50 DC 05/15/20 21:02 Sertraline HCl (Zoloft) 75 mg DAILY PO 05/15/20 09:00 05/17/20 09:42 Quetiapine Fumarate (SEROquel) 25 mg QHS PO 05/14/20 21:00 05/17/20 19:22 Olanzapine (ZyPREXA ZYDIS) 2.5 mg PRN Q2HR PRN PO PSYCHOSIS 05/15/20 09:45 05/16/20 19:27 Quetiapine Fumarate (SEROquel) 12.5 mg 0900,1700 PO 05/16/20 09:00 05/17/20 09:43 Amitriptyline HCl (Elavil) 25 mg QHS PO 05/16/20 21:00 05/17/20 19:22 I have reviewed the current psychotropics carefully including drug interactions. Risk benefit ratio favors no change other than as noted in my dictated progress note. Diagnosis: Problems: (1) Impulse control disorder, unspecified (2) Anxiety disorder, unspecified (3) Dementia, vascular, with depression (4) Dementia, vascular, with delusions (5) Dementia in Alzheimer's disease with depression (6) Dementia in Alzheimer's disease with delusions (7) Dementia of the Alzheimer's type with early onset with behavioral disturbance (8) Major neurocognitive disorder ELIAS WILLSON MD May 17, 2020 21:03
[2020-05-18 06:23] VITALS: BP 134/66
--- NOTE | 2020-05-18 08:29 | PDOC ---
Exam Note: Avtar Note: This note is a late entry for 05/17/2020 covers elements not covered in my initial note. Subjective: The patient was seen individually in the evening of 05/17/2020 with Lina LEYVA, discussed and reviewed the chart. He slept 7 hours previous night. The patient did well previous night and during the day today. The 5 p.m. Seroquel was held due to sedation. Review of Systems: No CV, pulmonary, eye, ENT system symptoms on review. Relia bility poor. Mental Status Exam: The patient is oriented to himself. Insight and judgment, recent and remote memory, attention and concentration, fund of knowledge is poor consistent with his diagnosis. Laboratory Data: Reviewed. 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 Anxiety disorder unspecified. Impulse control disorder unspecified. Plan: No change from initial note. Assessment: Vital Signs/I&O: Vital Signs Date Time Temp Pulse Resp B/P (MAP) Pulse Ox O2 Delivery O2 Flow Rate FiO2 05/18/20 06:23 96.8 114 24 134/66 (88) 93 Room Air I & O 05/17/20 05/17/20 05/18/20 15:00 23:00 07:00 Intake Total 360 ml 0 ml Balance 360 ml 0 ml Current Medications: Meds: Current Medications Medications (Trade) Dose Ordered Sig/Desire Route PRN Reason Start Time Stop Time Status Last Admin Dose Admin Acetaminophen (Tylenol) 650 mg PRN Q6HRS PRN PO MILD PAIN / TEMP > 100.3'F 05/07/20 14:45 Multi-Ingredient Ointment (Analgesic [place]) 1 garland PRN QID PRN TP MUSCLE PAIN 05/07/20 14:45 Al Hydroxide/Mg Hydroxide (Mylanta Plus Xs) 15 ml PRN AFTMEALHC PRN PO DYSPEPSIA 05/07/20 14:45 Magnesium Hydroxide (Milk Of Magnesia) 2,400 mg PRN QHS PRN PO CONSTIPATION 05/07/20 14:45 Acetaminophen (Tylenol) 500 mg PRN Q6HRS PRN PO MILD PAIN / TEMP > 100.3'F 05/07/20 21:45 UNV Lorazepam (Ativan) 0.25 mg DAILY PO 05/08/20 09:00 05/08/20 13:25 DC 05/08/20 08:20 Lorazepam (Ativan) 0.5 mg PRN QHS PRN PO ANXIETY 05/07/20 21:45 05/08/20 13:23 DC Memantine (Namenda) 10 mg DAILY PO 05/08/20 09:00 05/15/20 17:45 DC 05/15/20 08:52 Neomycin/ Polymyxin/ Bacitracin (Triple Antibiotic Ointment) 1 pkt PRN DAILY PRN TP SKIN CLEANSING 05/07/20 21:45 Trazodone HCl (Desyrel) 100 mg QHS PO 05/08/20 21:00 05/07/20 22:05 DC Non-Formulary Medication (Melatonin ) 5 mg QHS PRN SL insomnia 05/07/20 21:45 05/07/20 22:05 DC Morphine Sulfate (Morphine Oral Solution) 5 mg PRN Q3HRS PRN PO MOD-SEV PAIN 05/07/20 22:45 05/14/20 14:22 Trazodone HCl (Desyrel) 100 mg QHS PO 05/07/20 23:00 05/17/20 19:22 Melatonin (Melatonin) 3 mg PRN QHS PRN PO INSOMNIA 05/07/20 22:45 05/08/20 13:23 DC 05/07/20 22:46 Lorazepam (Ativan) 0.25 mg PRN QHS PRN PO ANXIETY 05/08/20 21:00 05/13/20 21:46 Lorazepam (Ativan) 0.25 mg DAILY PO 05/09/20 09:00 05/13/20 09:00 DC 05/13/20 08:51 Sertraline HCl (Zoloft) 25 mg DAILY PO 05/09/20 09:00 05/11/20 09:59 DC 05/11/20 09:02 Sertraline HCl (Zoloft) 50 mg DAILY PO 05/12/20 09:00 05/14/20 10:49 DC 05/14/20 07:50 Melatonin (Melatonin) 3 mg PRN QHS PRN PO INSOMNIA 05/11/20 18:15 05/17/20 19:23 Mirtazapine (Remeron) 7.5 mg QHS PO 05/11/20 21:00 05/12/20 17:49 DC 05/11/20 19:49 Mirtazapine (Remeron) 15 mg QHS PO 05/12/20 21:00 05/16/20 17:50 DC 05/15/20 21:02 Sertraline HCl (Zoloft) 75 mg DAILY PO 05/15/20 09:00 05/17/20 09:42 Quetiapine Fumarate (SEROquel) 25 mg QHS PO 05/14/20 21:00 05/17/20 19:22 Olanzapine (ZyPREXA ZYDIS) 2.5 mg PRN Q2HR PRN PO PSYCHOSIS 05/15/20 09:45 05/17/20 22:49 Quetiapine Fumarate (SEROquel) 12.5 mg 0900,1700 PO 05/16/20 09:00 05/17/20 09:43 Amitriptyline HCl (Elavil) 25 mg QHS PO 05/16/20 21:00 05/17/20 19:22 I have reviewed the current psychotropics carefully including drug interactions. Risk benefit ratio favors no change other than as noted in my dictated progress note. Diagnosis: Problems: (1) Impulse control disorder, unspecified (2) Anxiety disorder, unspecified (3) Dementia, vascular, with depression (4) Dementia, vascular, with delusions (5) Dementia in Alzheimer's disease with depression (6) Dementia in Alzheimer's disease with delusions (7) Dementia of the Alzheimer's type with early onset with behavioral disturbance (8) Major neurocognitive disorder ELIAS WILLSON MD May 18, 2020 08:29
[2020-05-18] MEDS: QUEtiapine 25 MG TABLET. PO SCH ×3 (08:52→20:06)
[2020-05-18] MEDS: SERTRALINE 50 MG TABLET. PO SCH (08:52)
[2020-05-18 16:07] VITALS: BP_SYST 128; BP_SYST 142; BP_DIAS 54; BP_DIAS 62
[2020-05-18] MEDS ORDERED: traZODone 50 MG TABLET. PO PRN (18:00)
[2020-05-18] MEDS: AMITRIPTYLINE HCL 25 MG TABLET PO SCH (20:06)
--- NOTE | 2020-05-18 21:24 | PDOC ---
Exam Note: Avtar Note: Please also refer to the separate dictated note~for this date of service dictated separately.~Patient seen individually. Discussed the patient with Nursing staff reviewed the chart.~Reviewed interim history and current functioning. Reviewed vital signs,~Labs/ Radiology~and current medications noted below. Continue current treatment with the changes noted in the dictated addendum note Assessment: Vital Signs/I&O: Vital Signs Date Time Temp Pulse Resp B/P (MAP) Pulse Ox O2 Delivery O2 Flow Rate FiO2 05/18/20 16:07 97.7 77 18 142/62 (88) 97 05/18/20 06:23 Room Air I & O 05/17/20 05/17/20 05/18/20 15:00 23:00 07:00 Intake Total 360 ml 0 ml Balance 360 ml 0 ml Current Medications: Meds: Current Medications Medications (Trade) Dose Ordered Sig/Desire Route PRN Reason Start Time Stop Time Status Last Admin Dose Admin Acetaminophen (Tylenol) 650 mg PRN Q6HRS PRN PO MILD PAIN / TEMP > 100.3'F 05/07/20 14:45 Multi-Ingredient Ointment (Analgesic [place]) 1 garland PRN QID PRN TP MUSCLE PAIN 05/07/20 14:45 Al Hydroxide/Mg Hydroxide (Mylanta Plus Xs) 15 ml PRN AFTMEALHC PRN PO DYSPEPSIA 05/07/20 14:45 Magnesium Hydroxide (Milk Of Magnesia) 2,400 mg PRN QHS PRN PO CONSTIPATION 05/07/20 14:45 Acetaminophen (Tylenol) 500 mg PRN Q6HRS PRN PO MILD PAIN / TEMP > 100.3'F 05/07/20 21:45 UNV Lorazepam (Ativan) 0.25 mg DAILY PO 05/08/20 09:00 05/08/20 13:25 DC 05/08/20 08:20 Lorazepam (Ativan) 0.5 mg PRN QHS PRN PO ANXIETY 05/07/20 21:45 05/08/20 13:23 DC Memantine (Namenda) 10 mg DAILY PO 05/08/20 09:00 05/15/20 17:45 DC 05/15/20 08:52 Neomycin/ Polymyxin/ Bacitracin (Triple Antibiotic Ointment) 1 pkt PRN DAILY PRN TP SKIN CLEANSING 05/07/20 21:45 Trazodone HCl (Desyrel) 100 mg QHS PO 05/08/20 21:00 05/07/20 22:05 DC Non-Formulary Medication (Melatonin ) 5 mg QHS PRN SL insomnia 05/07/20 21:45 05/07/20 22:05 DC Morphine Sulfate (Morphine Oral Solution) 5 mg PRN Q3HRS PRN PO MOD-SEV PAIN 05/07/20 22:45 05/14/20 14:22 Trazodone HCl (Desyrel) 100 mg QHS PO 05/07/20 23:00 05/18/20 17:46 DC 05/17/20 19:22 Melatonin (Melatonin) 3 mg PRN QHS PRN PO INSOMNIA 05/07/20 22:45 05/08/20 13:23 DC 05/07/20 22:46 Lorazepam (Ativan) 0.25 mg PRN QHS PRN PO ANXIETY 05/08/20 21:00 05/13/20 21:46 Lorazepam (Ativan) 0.25 mg DAILY PO 05/09/20 09:00 05/13/20 09:00 DC 05/13/20 08:51 Sertraline HCl (Zoloft) 25 mg DAILY PO 05/09/20 09:00 05/11/20 09:59 DC 05/11/20 09:02 Sertraline HCl (Zoloft) 50 mg DAILY PO 05/12/20 09:00 05/14/20 10:49 DC 05/14/20 07:50 Melatonin (Melatonin) 3 mg PRN QHS PRN PO INSOMNIA 05/11/20 18:15 05/17/20 19:23 Mirtazapine (Remeron) 7.5 mg QHS PO 05/11/20 21:00 05/12/20 17:49 DC 05/11/20 19:49 Mirtazapine (Remeron) 15 mg QHS PO 05/12/20 21:00 05/16/20 17:50 DC 05/15/20 21:02 Sertraline HCl (Zoloft) 75 mg DAILY PO 05/15/20 09:00 05/18/20 08:52 Quetiapine Fumarate (SEROquel) 25 mg QHS PO 05/14/20 21:00 05/18/20 20:06 Olanzapine (ZyPREXA ZYDIS) 2.5 mg PRN Q2HR PRN PO PSYCHOSIS 05/15/20 09:45 05/17/20 22:49 Quetiapine Fumarate (SEROquel) 12.5 mg 0900,1700 PO 05/16/20 09:00 05/18/20 17:46 DC 05/18/20 15:48 Amitriptyline HCl (Elavil) 25 mg QHS PO 05/16/20 21:00 05/18/20 20:06 Quetiapine Fumarate (SEROquel) 12.5 mg 0900,1200,1700 PO 05/19/20 09:00 Trazodone HCl (Desyrel) 50 mg QHS PRN PO INSOMNIA, MAY REPEAT X1 05/18/20 18:00 05/18/20 17:57 DC Trazodone HCl (Desyrel) 50 mg PRN QHS PRN PO INSOMNIA, MAY REPEAT X1 05/18/20 18:00 I have reviewed the current psychotropics carefully including drug interactions. Risk benefit ratio favors no change other than as noted in my dictated progress note. Diagnosis: Problems: (1) Impulse control disorder, unspecified (2) Anxiety disorder, unspecified (3) Dementia, vascular, with depression (4) Dementia, vascular, with delusions (5) Dementia in Alzheimer's disease with depression (6) Dementia in Alzheimer's disease with delusions (7) Dementia of the Alzheimer's type with early onset with behavioral disturbance (8) Major neurocognitive disorder ELIAS WILLSON MD May 18, 2020 21:24
[2020-05-19 06:17] VITALS: BP 139/72
[2020-05-19] MEDS: QUEtiapine 25 MG TABLET. PO SCH ×5 (08:11→19:48)
[2020-05-19] MEDS: SERTRALINE 50 MG TABLET. PO SCH (08:11)
[2020-05-19 16:10] VITALS: BP 103/56
[2020-05-19] MEDS: AMITRIPTYLINE HCL 25 MG TABLET PO SCH (19:48)
--- NOTE | 2020-05-19 21:05 | PDOC ---
Exam Note: Avtar Note: Please also refer to the separate dictated note~for this date of service dictated separately.~Patient seen individually. Discussed the patient with Nursing staff reviewed the chart.~Reviewed interim history and current functioning. Reviewed vital signs,~Labs/ Radiology~and current medications noted below. Continue current treatment with the changes noted in the dictated addendum note Assessment: Vital Signs/I&O: Vital Signs Date Time Temp Pulse Resp B/P (MAP) Pulse Ox O2 Delivery O2 Flow Rate FiO2 05/19/20 16:10 97.8 62 16 103/56 (72) 94 05/18/20 06:23 Room Air I & O 05/18/20 05/18/20 05/19/20 15:00 23:00 07:00 Intake Total 400 ml 200 ml Balance 400 ml 200 ml Current Medications: Meds: Current Medications Medications (Trade) Dose Ordered Sig/Desire Route PRN Reason Start Time Stop Time Status Last Admin Dose Admin Quetiapine Fumarate (SEROquel) 12.5 mg 0900,1200,1700 PO 05/19/20 09:00 05/19/20 12:16 I have reviewed the current psychotropics carefully including drug interactions. Risk benefit ratio favors no change other than as noted in my dictated progress note. Diagnosis: Problems: (1) Impulse control disorder, unspecified (2) Anxiety disorder, unspecified (3) Dementia, vascular, with depression (4) Dementia, vascular, with delusions (5) Dementia in Alzheimer's disease with depression (6) Dementia in Alzheimer's disease with delusions (7) Dementia of the Alzheimer's type with early onset with behavioral disturbance (8) Major neurocognitive disorder ELIAS WILLSON MD May 19, 2020 21:05
--- NOTE | 2020-05-19 21:05 | PDOC ---
Exam Note: Avtar Note: This note is a late entry for 05/18/2020 covers elements not covered in my initial note. Subjective: The patient was seen individually in the evening of 05/18/2020 with Lina LEYVA, discussed and reviewed the chart. He slept 4-3/4 hours previous night. The patient slept just 2 hours previous night but he has been sleeping during the day previously and therefore was probably making up for it. He has been pacing intrusive in the evening, grabbing at the arm of the nursing staff. Review of Systems: No CV, pulmonary, eye, ENT system symptoms on review. Mental Status Exam: The patient is oriented to himself. Insight and judgment, recent and remote memory, attention and concentration, fund of knowledge is poor consistent with his diagnosis. Laboratory Data: Reviewed. 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 Anxiety disorder unspecified. Impulse control disorder unspecified. Plan: No change from initial note. Add 12.5 mg Seroquel at noon to help with his afternoon agitation and psychosis. Change the trazodone 100 mg h.s. to 50 mg p.r.n., may repeat x1 as he also gets melatonin h.s. p.r.n. and amitriptyline 25 mg h.s. Adjust further as clinically indicated. Assessment: Vital Signs/I&O: Vital Signs Date Time Temp Pulse Resp B/P (MAP) Pulse Ox O2 Delivery O2 Flow Rate FiO2 05/19/20 16:10 97.8 62 16 103/56 (72) 94 05/18/20 06:23 Room Air I & O 05/18/20 05/18/20 05/19/20 15:00 23:00 07:00 Intake Total 400 ml 200 ml Balance 400 ml 200 ml Current Medications: Meds: Current Medications Medications (Trade) Dose Ordered Sig/Desire Route PRN Reason Start Time Stop Time Status Last Admin Dose Admin Acetaminophen (Tylenol) 650 mg PRN Q6HRS PRN PO MILD PAIN / TEMP > 100.3'F 05/07/20 14:45 Multi-Ingredient Ointment (Analgesic [place]) 1 garland PRN QID PRN TP MUSCLE PAIN 05/07/20 14:45 Al Hydroxide/Mg Hydroxide (Mylanta Plus Xs) 15 ml PRN AFTMEALHC PRN PO DYSPEPSIA 05/07/20 14:45 Magnesium Hydroxide (Milk Of Magnesia) 2,400 mg PRN QHS PRN PO CONSTIPATION 05/07/20 14:45 Acetaminophen (Tylenol) 500 mg PRN Q6HRS PRN PO MILD PAIN / TEMP > 100.3'F 05/07/20 21:45 UNV Lorazepam (Ativan) 0.25 mg DAILY PO 05/08/20 09:00 05/08/20 13:25 DC 05/08/20 08:20 Lorazepam (Ativan) 0.5 mg PRN QHS PRN PO ANXIETY 05/07/20 21:45 05/08/20 13:23 DC Memantine (Namenda) 10 mg DAILY PO 05/08/20 09:00 05/15/20 17:45 DC 05/15/20 08:52 Neomycin/ Polymyxin/ Bacitracin (Triple Antibiotic Ointment) 1 pkt PRN DAILY PRN TP SKIN CLEANSING 05/07/20 21:45 Trazodone HCl (Desyrel) 100 mg QHS PO 05/08/20 21:00 05/07/20 22:05 DC Non-Formulary Medication (Melatonin ) 5 mg QHS PRN SL insomnia 05/07/20 21:45 05/07/20 22:05 DC Morphine Sulfate (Morphine Oral Solution) 5 mg PRN Q3HRS PRN PO MOD-SEV PAIN 05/07/20 22:45 05/14/20 14:22 Trazodone HCl (Desyrel) 100 mg QHS PO 05/07/20 23:00 05/18/20 17:46 DC 05/17/20 19:22 Melatonin (Melatonin) 3 mg PRN QHS PRN PO INSOMNIA 05/07/20 22:45 05/08/20 13:23 DC 05/07/20 22:46 Lorazepam (Ativan) 0.25 mg PRN QHS PRN PO ANXIETY 05/08/20 21:00 05/13/20 21:46 Lorazepam (Ativan) 0.25 mg DAILY PO 05/09/20 09:00 05/13/20 09:00 DC 05/13/20 08:51 Sertraline HCl (Zoloft) 25 mg DAILY PO 05/09/20 09:00 05/11/20 09:59 DC 05/11/20 09:02 Sertraline HCl (Zoloft) 50 mg DAILY PO 05/12/20 09:00 05/14/20 10:49 DC 05/14/20 07:50 Melatonin (Melatonin) 3 mg PRN QHS PRN PO INSOMNIA 05/11/20 18:15 05/17/20 19:23 Mirtazapine (Remeron) 7.5 mg QHS PO 05/11/20 21:00 05/12/20 17:49 DC 05/11/20 19:49 Mirtazapine (Remeron) 15 mg QHS PO 05/12/20 21:00 05/16/20 17:50 DC 05/15/20 21:02 Sertraline HCl (Zoloft) 75 mg DAILY PO 05/15/20 09:00 05/19/20 08:11 Quetiapine Fumarate (SEROquel) 25 mg QHS PO 05/14/20 21:00 05/19/20 19:48 Olanzapine (ZyPREXA ZYDIS) 2.5 mg PRN Q2HR PRN PO PSYCHOSIS 05/15/20 09:45 05/19/20 11:09 Quetiapine Fumarate (SEROquel) 12.5 mg 0900,1700 PO 05/16/20 09:00 05/18/20 17:46 DC 05/18/20 15:48 Amitriptyline HCl (Elavil) 25 mg QHS PO 05/16/20 21:00 05/19/20 19:48 Quetiapine Fumarate (SEROquel) 12.5 mg 0900,1200,1700 PO 05/19/20 09:00 05/19/20 12:16 Trazodone HCl (Desyrel) 50 mg QHS PRN PO INSOMNIA, MAY REPEAT X1 05/18/20 18:00 05/18/20 17:57 DC Trazodone HCl (Desyrel) 50 mg PRN QHS PRN PO INSOMNIA, MAY REPEAT X1 05/18/20 18:00 Current Medications Medications (Trade) Dose Ordered Sig/Desire Route PRN Reason Start Time Stop Time Status Last Admin Dose Admin Quetiapine Fumarate (SEROquel) 12.5 mg 0900,1200,1700 PO 05/19/20 09:00 05/19/20 12:16 I have reviewed the current psychotropics carefully including drug interactions. Risk benefit ratio favors no change other than as noted in my dictated progress note. Diagnosis: Problems: (1) Impulse control disorder, unspecified (2) Anxiety disorder, unspecified (3) Dementia, vascular, with depression (4) Dementia, vascular, with delusions (5) Dementia in Alzheimer's disease with depression (6) Dementia in Alzheimer's disease with delusions (7) Dementia of the Alzheimer's type with early onset with behavioral disturbance (8) Major neurocognitive disorder ELIAS WILLSON MD May 19, 2020 21:05
[2020-05-20 06:19] VITALS: BP 140/80
--- NOTE | 2020-05-20 08:10 | PDOC ---
Exam Note: Avtar Note: This note is a late entry for 05/19/2020 covers elements not covered in my initial note. Subjective: The patient was seen individually in the evening of 05/19/2020 with Lindy LEYVA, discussed and reviewed the chart. He slept 5 hours previous night. He has been wandering, agitated but redirected. He was rearranging furniture. He did get to bed and was somewhat sedated after lunch. Review of Systems: I met with him in his room. No CV, pulmonary, eye, ENT system symptoms on review. Mental Status Exam: The patient is oriented to himself. Insight and judgment, recent and remote memory, attention and concentration, fund of knowledge is poor consistent with his diagnosis. Laboratory Data: Reviewed. 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 Anxiety disorder unspecified. Impulse control disorder unspecified. Plan: No change from initial note. Assessment: Vital Signs/I&O: Vital Signs Date Time Temp Pulse Resp B/P (MAP) Pulse Ox O2 Delivery O2 Flow Rate FiO2 05/20/20 06:19 97.1 60 18 140/80 (100) 96 Room Air I & O 05/19/20 05/19/20 05/20/20 15:00 23:00 07:00 Intake Total 720 ml 0 ml Balance 720 ml 0 ml Current Medications: Meds: Current Medications Medications (Trade) Dose Ordered Sig/Desire Route PRN Reason Start Time Stop Time Status Last Admin Dose Admin Acetaminophen (Tylenol) 650 mg PRN Q6HRS PRN PO MILD PAIN / TEMP > 100.3'F 05/07/20 14:45 Multi-Ingredient Ointment (Analgesic [place]) 1 gar[place] PRN QID PRN TP MUSCLE PAIN 05/07/20 14:45 Al Hydroxide/Mg Hydroxide (Mylanta Plus Xs) 15 ml PRN AFTMEALHC PRN PO DYSPEPSIA 05/07/20 14:45 Magnesium Hydroxide (Milk Of Magnesia) 2,400 mg PRN QHS PRN PO CONSTIPATION 05/07/20 14:45 Acetaminophen (Tylenol) 500 mg PRN Q6HRS PRN PO MILD PAIN / TEMP > 100.3'F 05/07/20 21:45 UNV Lorazepam (Ativan) 0.25 mg DAILY PO 05/08/20 09:00 05/08/20 13:25 DC 05/08/20 08:20 Lorazepam (Ativan) 0.5 mg PRN QHS PRN PO ANXIETY 05/07/20 21:45 05/08/20 13:23 DC Memantine (Namenda) 10 mg DAILY PO 05/08/20 09:00 05/15/20 17:45 DC 05/15/20 08:52 Neomycin/ Polymyxin/ Bacitracin (Triple Antibiotic Ointment) 1 pkt PRN DAILY PRN TP SKIN CLEANSING 05/07/20 21:45 Trazodone HCl (Desyrel) 100 mg QHS PO 05/08/20 21:00 05/07/20 22:05 DC Non-Formulary Medication (Melatonin ) 5 mg QHS PRN SL insomnia 05/07/20 21:45 05/07/20 22:05 DC Morphine Sulfate (Morphine Oral Solution) 5 mg PRN Q3HRS PRN PO MOD-SEV PAIN 05/07/20 22:45 05/14/20 14:22 Trazodone HCl (Desyrel) 100 mg QHS PO 05/07/20 23:00 05/18/20 17:46 DC 05/17/20 19:22 Melatonin (Melatonin) 3 mg PRN QHS PRN PO INSOMNIA 05/07/20 22:45 05/08/20 13:23 DC 05/07/20 22:46 Lorazepam (Ativan) 0.25 mg PRN QHS PRN PO ANXIETY 05/08/20 21:00 05/13/20 21:46 Lorazepam (Ativan) 0.25 mg DAILY PO 05/09/20 09:00 05/13/20 09:00 DC 05/13/20 08:51 Sertraline HCl (Zoloft) 25 mg DAILY PO 05/09/20 09:00 05/11/20 09:59 DC 05/11/20 09:02 Sertraline HCl (Zoloft) 50 mg DAILY PO 05/12/20 09:00 05/14/20 10:49 DC 05/14/20 07:50 Melatonin (Melatonin) 3 mg PRN QHS PRN PO INSOMNIA 05/11/20 18:15 05/17/20 19:23 Mirtazapine (Remeron) 7.5 mg QHS PO 05/11/20 21:00 05/12/20 17:49 DC 05/11/20 19:49 Mirtazapine (Remeron) 15 mg QHS PO 05/12/20 21:00 05/16/20 17:50 DC 05/15/20 21:02 Sertraline HCl (Zoloft) 75 mg DAILY PO 05/15/20 09:00 05/19/20 08:11 Quetiapine Fumarate (SEROquel) 25 mg QHS PO 05/14/20 21:00 05/19/20 19:48 Olanzapine (ZyPREXA ZYDIS) 2.5 mg PRN Q2HR PRN PO PSYCHOSIS 05/15/20 09:45 05/19/20 11:09 Quetiapine Fumarate (SEROquel) 12.5 mg 0900,1700 PO 05/16/20 09:00 05/18/20 17:46 DC 05/18/20 15:48 Amitriptyline HCl (Elavil) 25 mg QHS PO 05/16/20 21:00 05/19/20 19:48 Quetiapine Fumarate (SEROquel) 12.5 mg 0900,1200,1700 PO 05/19/20 09:00 05/19/20 12:16 Trazodone HCl (Desyrel) 50 mg QHS PRN PO INSOMNIA, MAY REPEAT X1 05/18/20 18:00 05/18/20 17:57 DC Trazodone HCl (Desyrel) 50 mg PRN QHS PRN PO INSOMNIA, MAY REPEAT X1 05/18/20 18:00 Current Medications Medications (Trade) Dose Ordered Sig/Desire Route PRN Reason Start Time Stop Time Status Last Admin Dose Admin Quetiapine Fumarate (SEROquel) 12.5 mg 0900,1200,1700 PO 05/19/20 09:00 05/19/20 12:16 I have reviewed the current psychotropics carefully including drug interactions. Risk benefit ratio favors no change other than as noted in my dictated progress note. Diagnosis: Problems: (1) Impulse control disorder, unspecified (2) Anxiety disorder, unspecified (3) Dementia, vascular, with depression (4) Dementia, vascular, with delusions (5) Dementia in Alzheimer's disease with depression (6) Dementia in Alzheimer's disease with delusions (7) Dementia of the Alzheimer's type with early onset with behavioral disturbance (8) Major neurocognitive disorder ELIAS WILLSON MD May 20, 2020 08:10
[2020-05-20] MEDS: QUEtiapine 25 MG TABLET. PO SCH ×4 (10:58→19:42)
[2020-05-20] MEDS: SERTRALINE 50 MG TABLET. PO SCH (10:59)
[2020-05-20] MEDS: AMITRIPTYLINE HCL 25 MG TABLET PO SCH (19:42)
[2020-05-20] MEDS: traZODone 50 MG TABLET. PO PRN (20:14)
[2020-05-20 21:00] VITALS: BP 124/59
--- NOTE | 2020-05-20 22:48 | PDOC ---
Exam Note: Avtar Note: Please also refer to the separate dictated note~for this date of service dictated separately.~Patient seen individually. Discussed the patient with Nursing staff reviewed the chart.~Reviewed interim history and current functioning. Reviewed vital signs,~Labs/ Radiology~and current medications noted below. Continue current treatment with the changes noted in the dictated addendum note Assessment: Vital Signs/I&O: Vital Signs Date Time Temp Pulse Resp B/P (MAP) Pulse Ox O2 Delivery O2 Flow Rate FiO2 05/20/20 21:00 97.9 67 18 124/59 (80) 96 Room Air I & O 05/19/20 05/19/20 05/20/20 15:00 23:00 07:00 Intake Total 720 ml 0 ml Balance 720 ml 0 ml Current Medications: Meds: Current Medications Medications (Trade) Dose Ordered Sig/Desire Route PRN Reason Start Time Stop Time Status Last Admin Dose Admin Acetaminophen (Tylenol) 650 mg PRN Q6HRS PRN PO MILD PAIN / TEMP > 100.3'F 05/07/20 14:45 Multi-Ingredient Ointment (Analgesic [place]) 1 [place] PRN QID PRN TP MUSCLE PAIN 05/07/20 14:45 Al Hydroxide/Mg Hydroxide (Mylanta Plus Xs) 15 ml PRN AFTMEALHC PRN PO DYSPEPSIA 05/07/20 14:45 Magnesium Hydroxide (Milk Of Magnesia) 2,400 mg PRN QHS PRN PO CONSTIPATION 05/07/20 14:45 Acetaminophen (Tylenol) 500 mg PRN Q6HRS PRN PO MILD PAIN / TEMP > 100.3'F 05/07/20 21:45 UNV Lorazepam (Ativan) 0.25 mg DAILY PO 05/08/20 09:00 05/08/20 13:25 DC 05/08/20 08:20 Lorazepam (Ativan) 0.5 mg PRN QHS PRN PO ANXIETY 05/07/20 21:45 05/08/20 13:23 DC Memantine (Namenda) 10 mg DAILY PO 05/08/20 09:00 05/15/20 17:45 DC 05/15/20 08:52 Neomycin/ Polymyxin/ Bacitracin (Triple Antibiotic Ointment) 1 pkt PRN DAILY PRN TP SKIN CLEANSING 05/07/20 21:45 Trazodone HCl (Desyrel) 100 mg QHS PO 05/08/20 21:00 05/07/20 22:05 DC Non-Formulary Medication (Melatonin ) 5 mg QHS PRN SL insomnia 05/07/20 21:45 05/07/20 22:05 DC Morphine Sulfate (Morphine Oral Solution) 5 mg PRN Q3HRS PRN PO MOD-SEV PAIN 05/07/20 22:45 05/14/20 14:22 Trazodone HCl (Desyrel) 100 mg QHS PO 05/07/20 23:00 05/18/20 17:46 DC 05/17/20 19:22 Melatonin (Melatonin) 3 mg PRN QHS PRN PO INSOMNIA 05/07/20 22:45 05/08/20 13:23 DC 05/07/20 22:46 Lorazepam (Ativan) 0.25 mg PRN QHS PRN PO ANXIETY 05/08/20 21:00 05/13/20 21:46 Lorazepam (Ativan) 0.25 mg DAILY PO 05/09/20 09:00 05/13/20 09:00 DC 05/13/20 08:51 Sertraline HCl (Zoloft) 25 mg DAILY PO 05/09/20 09:00 05/11/20 09:59 DC 05/11/20 09:02 Sertraline HCl (Zoloft) 50 mg DAILY PO 05/12/20 09:00 05/14/20 10:49 DC 05/14/20 07:50 Melatonin (Melatonin) 3 mg PRN QHS PRN PO INSOMNIA 05/11/20 18:15 05/17/20 19:23 Mirtazapine (Remeron) 7.5 mg QHS PO 05/11/20 21:00 05/12/20 17:49 DC 05/11/20 19:49 Mirtazapine (Remeron) 15 mg QHS PO 05/12/20 21:00 05/16/20 17:50 DC 05/15/20 21:02 Sertraline HCl (Zoloft) 75 mg DAILY PO 05/15/20 09:00 05/20/20 10:59 Quetiapine Fumarate (SEROquel) 25 mg QHS PO 05/14/20 21:00 05/20/20 19:42 Olanzapine (ZyPREXA ZYDIS) 2.5 mg PRN Q2HR PRN PO PSYCHOSIS 05/15/20 09:45 05/19/20 11:09 Quetiapine Fumarate (SEROquel) 12.5 mg 0900,1700 PO 05/16/20 09:00 05/18/20 17:46 DC 05/18/20 15:48 Amitriptyline HCl (Elavil) 25 mg QHS PO 05/16/20 21:00 05/20/20 19:42 Quetiapine Fumarate (SEROquel) 12.5 mg 0900,1200,1700 PO 05/19/20 09:00 05/20/20 17:43 Trazodone HCl (Desyrel) 50 mg QHS PRN PO INSOMNIA, MAY REPEAT X1 05/18/20 18:00 05/18/20 17:57 DC Trazodone HCl (Desyrel) 50 mg PRN QHS PRN PO INSOMNIA, MAY REPEAT X1 05/18/20 18:00 05/20/20 20:14 I have reviewed the current psychotropics carefully including drug interactions. Risk benefit ratio favors no change other than as noted in my dictated progress note. Diagnosis: Problems: (1) Impulse control disorder, unspecified (2) Anxiety disorder, unspecified (3) Dementia, vascular, with depression (4) Dementia, vascular, with delusions (5) Dementia in Alzheimer's disease with depression (6) Dementia in Alzheimer's disease with delusions (7) Dementia of the Alzheimer's type with early onset with behavioral disturbance (8) Major neurocognitive disorder ELIAS WILLSON MD May 20, 2020 22:48
[2020-05-21 05:40] VITALS: BP 128/70
--- NOTE | 2020-05-21 08:02 | PDOC ---
Exam Note: Avtar Note: This note is a late entry for 05/20/2020 covers elements not covered in my initial note. Subjective: The patient was seen individually in the evening of 05/20/2020 with Lindy LEYVA, discussed and reviewed the chart. He slept 8 hours previous night. The patient slept well previous night. Remains confused. He slept in in the morning. He urinated in the hallway on the [place], unaware of where he was, what he was doing. Review of Systems: No CV, pulmonary, eye, ENT system symptoms on review. Mental Status Exam: The patient is oriented to himself. Insight and judgment, recent and remote memory, attention and concentration, fund of knowledge is poor consistent with his diagnoses. Laboratory Data: Reviewed. 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 Anxiety disorder unspecified. Impulse control disorder unspecified. Plan: No change from initial note. Assessment: Vital Signs/I&O: Vital Signs Date Time Temp Pulse Resp B/P (MAP) Pulse Ox O2 Delivery O2 Flow Rate FiO2 05/21/20 05:40 96.8 79 20 128/70 (89) 94 Room Air I & O 05/20/20 05/20/20 05/21/20 14:59 22:59 06:59 Intake Total 720 ml 270 ml Balance 720 ml 270 ml Current Medications: Meds: Current Medications Medications (Trade) Dose Ordered Sig/Desire Route PRN Reason Start Time Stop Time Status Last Admin Dose Admin Acetaminophen (Tylenol) 650 mg PRN Q6HRS PRN PO MILD PAIN / TEMP > 100.3'F 05/07/20 14:45 Multi-Ingredient Ointment (Analgesic [place]) 1 gar[place] PRN QID PRN TP MUSCLE PAIN 05/07/20 14:45 Al Hydroxide/Mg Hydroxide (Mylanta Plus Xs) 15 ml PRN AFTMEALHC PRN PO DYSPEPSIA 05/07/20 14:45 Magnesium Hydroxide (Milk Of Magnesia) 2,400 mg PRN QHS PRN PO CONSTIPATION 05/07/20 14:45 Acetaminophen (Tylenol) 500 mg PRN Q6HRS PRN PO MILD PAIN / TEMP > 100.3'F 05/07/20 21:45 UNV Lorazepam (Ativan) 0.25 mg DAILY PO 05/08/20 09:00 05/08/20 13:25 DC 05/08/20 08:20 Lorazepam (Ativan) 0.5 mg PRN QHS PRN PO ANXIETY 05/07/20 21:45 05/08/20 13:23 DC Memantine (Namenda) 10 mg DAILY PO 05/08/20 09:00 05/15/20 17:45 DC 05/15/20 08:52 Neomycin/ Polymyxin/ Bacitracin (Triple Antibiotic Ointment) 1 pkt PRN DAILY PRN TP SKIN CLEANSING 05/07/20 21:45 Trazodone HCl (Desyrel) 100 mg QHS PO 05/08/20 21:00 05/07/20 22:05 DC Non-Formulary Medication (Melatonin ) 5 mg QHS PRN SL insomnia 05/07/20 21:45 05/07/20 22:05 DC Morphine Sulfate (Morphine Oral Solution) 5 mg PRN Q3HRS PRN PO MOD-SEV PAIN 05/07/20 22:45 05/14/20 14:22 Trazodone HCl (Desyrel) 100 mg QHS PO 05/07/20 23:00 05/18/20 17:46 DC 05/17/20 19:22 Melatonin (Melatonin) 3 mg PRN QHS PRN PO INSOMNIA 05/07/20 22:45 05/08/20 13:23 DC 05/07/20 22:46 Lorazepam (Ativan) 0.25 mg PRN QHS PRN PO ANXIETY 05/08/20 21:00 05/13/20 21:46 Lorazepam (Ativan) 0.25 mg DAILY PO 05/09/20 09:00 05/13/20 09:00 DC 05/13/20 08:51 Sertraline HCl (Zoloft) 25 mg DAILY PO 05/09/20 09:00 05/11/20 09:59 DC 05/11/20 09:02 Sertraline HCl (Zoloft) 50 mg DAILY PO 05/12/20 09:00 05/14/20 10:49 DC 05/14/20 07:50 Melatonin (Melatonin) 3 mg PRN QHS PRN PO INSOMNIA 05/11/20 18:15 05/17/20 19:23 Mirtazapine (Remeron) 7.5 mg QHS PO 05/11/20 21:00 05/12/20 17:49 DC 05/11/20 19:49 Mirtazapine (Remeron) 15 mg QHS PO 05/12/20 21:00 05/16/20 17:50 DC 05/15/20 21:02 Sertraline HCl (Zoloft) 75 mg DAILY PO 05/15/20 09:00 05/20/20 10:59 Quetiapine Fumarate (SEROquel) 25 mg QHS PO 05/14/20 21:00 05/20/20 19:42 Olanzapine (ZyPREXA ZYDIS) 2.5 mg PRN Q2HR PRN PO PSYCHOSIS 05/15/20 09:45 05/19/20 11:09 Quetiapine Fumarate (SEROquel) 12.5 mg 0900,1700 PO 05/16/20 09:00 05/18/20 17:46 DC 05/18/20 15:48 Amitriptyline HCl (Elavil) 25 mg QHS PO 05/16/20 21:00 05/20/20 19:42 Quetiapine Fumarate (SEROquel) 12.5 mg 0900,1200,1700 PO 05/19/20 09:00 05/20/20 17:43 Trazodone HCl (Desyrel) 50 mg QHS PRN PO INSOMNIA, MAY REPEAT X1 05/18/20 18:00 05/18/20 17:57 DC Trazodone HCl (Desyrel) 50 mg PRN QHS PRN PO INSOMNIA, MAY REPEAT X1 05/18/20 18:00 05/20/20 20:14 I have reviewed the current psychotropics carefully including drug interactions. Risk benefit ratio favors no change other than as noted in my dictated progress note. Diagnosis: Problems: (1) Impulse control disorder, unspecified (2) Anxiety disorder, unspecified (3) Dementia, vascular, with depression (4) Dementia, vascular, with delusions (5) Dementia in Alzheimer's disease with depression (6) Dementia in Alzheimer's disease with delusions (7) Dementia of the Alzheimer's type with early onset with behavioral disturbance (8) Major neurocognitive disorder ELIAS WILLSON MD May 21, 2020 08:02
[2020-05-21] MEDS: SERTRALINE 50 MG TABLET. PO SCH (10:59)
[2020-05-21] MEDS: QUEtiapine 25 MG TABLET. PO SCH ×4 (10:59→19:30)
--- NOTE | 2020-05-21 11:23 | TX PLAN ---
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 Change Sleep, Angry, Anxiety/Panic, Combative, Confusion/Disoriented, Poor impulse control Problem in Patient's Words: Aggressive behaviors that are preventing staff from caring for him Additional Admission Comments: Per intake record, restless, threw food, hit peer, moving furniture-dismantled recliner, aggressive, agitated, slapping/punching staff, defecated on the couch, wandering. Problems Active Problems: wandering resists care aggressive at times of care inadequate sleep intrusive disoriented, unable to express basic needs Inactive Problems: Adequate intake of meals Pt Strengths/Limitations Ability for [place]: Poor Cognitive Functioning/Ability: Poor Communication Skills/Ability: Poor Financial Resources: Fair Insight/Judgement: Poor Intellectual Ability: Fair Physical Health: Fair Social Skills: Poor Stability in Family: Good Verbal Skills: Poor Discharge Criteria Discharge Criteria: Adequate arrangements @DC, Improved behavior, Improved mood/thought Preliminary Discharge Plan Preliminary DC Plan: Memory Care Special Precautions Special Precautions: Agitation/Assault Fall Risk: High Initial D/C Plan Memory care Identified Discharge Needs: Family is in the process of researching memory care units and express desire for Quinn to go to a different memory care facility upon d/c. Currently Utilized Resources Currently Utilized Resources/P: PCP [facility] psychiatrist Identified Problems/Hx/Goals Objectives/Short-Term Goals Short Term Goals: Control abnormal behavior, Dec. Aggression, Dec. Outbursts, Medication Stabilization, Monitor Med Effects Short Term Goals in Patient's: Per Neisha, /POA, more calm and less agitation at times of care. Interventions/Frequency Staff Interventions/Frequency&: Nursing to provide routine safety checks, medication administration, and adl support. Psychiatry to see three times a week. SW to visit twice weekly. Recreational and SW group activities as able. 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 Quinn retired fully 6-7 years ago. Social: Quinn enjoys the outdoors, fishing, and playing cards. Education: Quinn graduated from [employer]. Community Follow-up PCP Psychiatry if available Treatment Plan Explained Patient/Slp Teacher had this treatment plan explained to him/her as indicated by the signature below and has been given the opportunity to ask questions and make suggestions: Date: Patient/Slp Teacher Signature: Status Update Update WEEKLY NOTE/UPDATE: Quinn is averaging 57% of meal intakes and five hours of sleep at night. He has periods of anxiousness, restlessness, and wanders about the unit daily. He can become irritable with showers and adl's at times. Quinn participated in one recreational therapy group and was observed to be engaged and singing. At times he busies himself with moving furniture. He needs close supervision at meal times as he takes food from peers trays. Quinn is unable to make his needs known and depends on staff to anticipate needs. He is taking his medications crushed and in pudding. Quinn's family has identified four memory care facilities they would like referrals sent to for placement. SW will fax referral packets on 05/22 with anticipated d/c around 05/27/20. YAEL CADET May 21, 2020 11:23
[2020-05-21] MEDS: traZODone 50 MG TABLET. PO PRN ×2 (19:30→22:57)
[2020-05-21] MEDS: AMITRIPTYLINE HCL 25 MG TABLET PO SCH (19:30)
--- NOTE | 2020-05-21 20:59 | PDOC ---
Exam Note: Avtar Note: Please also refer to the separate dictated note~for this date of service dictated separately.~Patient seen individually. Discussed the patient with Nursing staff reviewed the chart.~Reviewed interim history and current functioning. Reviewed vital signs,~Labs/ Radiology~and current medications noted below. Continue current treatment with the changes noted in the dictated addendum note Assessment: Vital Signs/I&O: Vital Signs Date Time Temp Pulse Resp B/P (MAP) Pulse Ox O2 Delivery O2 Flow Rate FiO2 05/21/20 16:22 98.9 87 20 94 05/21/20 05:40 128/70 (89) Room Air I & O 05/20/20 05/20/20 05/21/20 15:00 23:00 07:00 Intake Total 720 ml 270 ml Balance 720 ml 270 ml Current Medications: Meds: Current Medications Medications (Trade) Dose Ordered Sig/Desire Route PRN Reason Start Time Stop Time Status Last Admin Dose Admin Acetaminophen (Tylenol) 650 mg PRN Q6HRS PRN PO MILD PAIN / TEMP > 100.3'F 05/07/20 14:45 Multi-Ingredient Ointment (Analgesic [place]) 1 garland PRN QID PRN TP MUSCLE PAIN 05/07/20 14:45 Al Hydroxide/Mg Hydroxide (Mylanta Plus Xs) 15 ml PRN AFTMEALHC PRN PO DYSPEPSIA 05/07/20 14:45 Magnesium Hydroxide (Milk Of Magnesia) 2,400 mg PRN QHS PRN PO CONSTIPATION 05/07/20 14:45 Acetaminophen (Tylenol) 500 mg PRN Q6HRS PRN PO MILD PAIN / TEMP > 100.3'F 05/07/20 21:45 UNV Lorazepam (Ativan) 0.25 mg DAILY PO 05/08/20 09:00 05/08/20 13:25 DC 05/08/20 08:20 Lorazepam (Ativan) 0.5 mg PRN QHS PRN PO ANXIETY 05/07/20 21:45 05/08/20 13:23 DC Memantine (Namenda) 10 mg DAILY PO 05/08/20 09:00 05/15/20 17:45 DC 05/15/20 08:52 Neomycin/ Polymyxin/ Bacitracin (Triple Antibiotic Ointment) 1 pkt PRN DAILY PRN TP SKIN CLEANSING 05/07/20 21:45 Trazodone HCl (Desyrel) 100 mg QHS PO 05/08/20 21:00 05/07/20 22:05 DC Non-Formulary Medication (Melatonin ) 5 mg QHS PRN SL insomnia 05/07/20 21:45 05/07/20 22:05 DC Morphine Sulfate (Morphine Oral Solution) 5 mg PRN Q3HRS PRN PO MOD-SEV PAIN 05/07/20 22:45 05/14/20 14:22 Trazodone HCl (Desyrel) 100 mg QHS PO 05/07/20 23:00 05/18/20 17:46 DC 05/17/20 19:22 Melatonin (Melatonin) 3 mg PRN QHS PRN PO INSOMNIA 05/07/20 22:45 05/08/20 13:23 DC 05/07/20 22:46 Lorazepam (Ativan) 0.25 mg PRN QHS PRN PO ANXIETY 05/08/20 21:00 05/13/20 21:46 Lorazepam (Ativan) 0.25 mg DAILY PO 05/09/20 09:00 05/13/20 09:00 DC 05/13/20 08:51 Sertraline HCl (Zoloft) 25 mg DAILY PO 05/09/20 09:00 05/11/20 09:59 DC 05/11/20 09:02 Sertraline HCl (Zoloft) 50 mg DAILY PO 05/12/20 09:00 05/14/20 10:49 DC 05/14/20 07:50 Melatonin (Melatonin) 3 mg PRN QHS PRN PO INSOMNIA 05/11/20 18:15 05/17/20 19:23 Mirtazapine (Remeron) 7.5 mg QHS PO 05/11/20 21:00 05/12/20 17:49 DC 05/11/20 19:49 Mirtazapine (Remeron) 15 mg QHS PO 05/12/20 21:00 05/16/20 17:50 DC 05/15/20 21:02 Sertraline HCl (Zoloft) 75 mg DAILY PO 05/15/20 09:00 05/21/20 10:59 Quetiapine Fumarate (SEROquel) 25 mg QHS PO 05/14/20 21:00 05/21/20 19:30 Olanzapine (ZyPREXA ZYDIS) 2.5 mg PRN Q2HR PRN PO PSYCHOSIS 05/15/20 09:45 05/19/20 11:09 Quetiapine Fumarate (SEROquel) 12.5 mg 0900,1700 PO 05/16/20 09:00 05/18/20 17:46 DC 05/18/20 15:48 Amitriptyline HCl (Elavil) 25 mg QHS PO 05/16/20 21:00 05/21/20 19:30 Quetiapine Fumarate (SEROquel) 12.5 mg 0900,1200,1700 PO 05/19/20 09:00 05/21/20 17:35 Trazodone HCl (Desyrel) 50 mg QHS PRN PO INSOMNIA, MAY REPEAT X1 05/18/20 18:00 05/18/20 17:57 DC Trazodone HCl (Desyrel) 50 mg PRN QHS PRN PO INSOMNIA, MAY REPEAT X1 05/18/20 18:00 05/21/20 19:30 I have reviewed the current psychotropics carefully including drug interactions. Risk benefit ratio favors no change other than as noted in my dictated progress note. Diagnosis: Problems: (1) Impulse control disorder, unspecified (2) Anxiety disorder, unspecified (3) Dementia, vascular, with depression (4) Dementia, vascular, with delusions (5) Dementia in Alzheimer's disease with depression (6) Dementia in Alzheimer's disease with delusions (7) Dementia of the Alzheimer's type with early onset with behavioral disturbance (8) Major neurocognitive disorder ELIAS WILLSON MD May 21, 2020 20:59
[2020-05-21] MEDS: MELATONIN 3 MG TABLET PO PRN (22:57)
[2020-05-22 06:05] VITALS: BP 160/65
[2020-05-22 06:31] LABS: BASO % 1 % (0-3); EOS # 0.3 x10^3/uL (0.0-0.7); EOS % 4 % (0-3); HEMATOCRIT 39.8 % (39.0-53.0); LYMPH # 1.2 x10^3/uL (1.0-4.8); LYMPH % 19 % (24-48); MEAN CORPUSCULAR HEMOGLOBIN 30 pg (25-35); MEAN CORPUSCULAR HGB CONC 33 g/dL (31-37); MEAN CORPUSCULAR VOLUME 92 fL (79-100); MONO # 0.7 x10^3/uL (0.0-1.1); MONO % 11 % (0-9); NEUT # 4.3 x10^3uL (1.8-7.7); NEUT % 65 % (31-73); PLATELET COUNT 174 x10^3/uL (140-400); RED BLOOD COUNT 4.35 x10^6/uL (4.30-5.70); RED CELL DISTRIBUTION WIDTH 13.9 % (11.5-14.5); WHITE BLOOD COUNT 6.6 x10^3/uL (4.0-11.0)
[2020-05-22 06:50] LABS: ALBUMIN 2.9 g/dL (3.4-5.0); ALBUMIN/GLOBULIN RATIO 0.8 (1.0-1.7); CALCIUM 8.5 mg/dL (8.5-10.1); CREATININE 0.8 mg/dL (0.7-1.3); GFR 91.7; POTASSIUM 4.2 mmol/L (3.5-5.1); TOTAL BILIRUBIN 0.4 mg/dL (0.2-1.0); TOTAL PROTEIN 6.6 g/dL (6.4-8.2)
[2020-05-22] MEDS: QUEtiapine 25 MG TABLET. PO SCH ×4 (08:19→20:15)
[2020-05-22] MEDS: SERTRALINE 50 MG TABLET. PO SCH (08:20)
--- NOTE | 2020-05-22 08:25 | PDOC ---
Exam Note: Avtar Note: This note is a late entry for 05/21/2020 covers elements not covered in my initial note. Subjective: The patient was reviewed in the morning of 05/21/2020 for a treatment team meeting with Balbina Griffin, Yarely Morales and Sabrina (delinquency prevention social worker), Jessy, activity therapy and Lindy LEYVA, discussed and reviewed the chart. He slept 5 hours previous night. The patients Neisha attended the conference and the patients son Bhupinder attended the conference as well. We had a lengthy discussion about the patients progress, diagnoses, current psychotropics. Also discussed placement options. Review of Systems: No CV, pulmonary, eye, ENT system symptoms on review. Mental Status Exam: The patient is oriented to himself. Insight and judgment, recent and remote memory, attention and concentration, fund of knowledge is poor consistent with his diagnoses. Laboratory Data: Reviewed. 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 Anxiety disorder unspecified. Impulse control disorder unspecified. Plan: We will adjust psychotropics further as clinically indicated. Assessment: Vital Signs/I&O: Vital Signs Date Time Temp Pulse Resp B/P (MAP) Pulse Ox O2 Delivery O2 Flow Rate FiO2 05/22/20 06:05 97.6 60 20 160/65 (96) 98 Room Air I & O 05/21/20 05/21/20 05/22/20 14:59 22:59 06:59 Intake Total 0 ml 720 ml Balance 0 ml 720 ml Labs: Laboratory Tests Test 05/22/20 06:18 White Blood Count 6.6 x10^3/uL (4.0-11.0) Red Blood Count 4.35 x10^6/uL (4.30-5.70) Hemoglobin 13.0 g/dL (13.0-17.5) Hematocrit 39.8 % (39.0-53.0) Mean Corpuscular Volume 92 fL (79-100) Mean Corpuscular Hemoglobin 30 pg (25-35) Mean Corpuscular Hemoglobin Concent 33 g/dL (31-37) Red Cell Distribution Width 13.9 % (11.5-14.5) Platelet Count 174 x10^3/uL (140-400) Neutrophils (%) (Auto) 65 % (31-73) Lymphocytes (%) (Auto) 19 % (24-48) L Monocytes (%) (Auto) 11 % (0-9) H Eosinophils (%) (Auto) 4 % (0-3) H Basophils (%) (Auto) 1 % (0-3) Neutrophils # (Auto) 4.3 x10^3uL (1.8-7.7) Lymphocytes # (Auto) 1.2 x10^3/uL (1.0-4.8) Monocytes # (Auto) 0.7 x10^3/uL (0.0-1.1) Eosinophils # (Auto) 0.3 x10^3/uL (0.0-0.7) Basophils # (Auto) 0.0 x10^3/uL (0.0-0.2) Sodium Level 142 mmol/L (136-145) Potassium Level 4.2 mmol/L (3.5-5.1) Chloride Level 106 mmol/L (98-107) Carbon Dioxide Level 29 mmol/L (21-32) Anion Gap 7 (6-14) Blood Urea Nitrogen 21 mg/dL (8-26) Creatinine 0.8 mg/dL (0.7-1.3) Estimated GFR (Cockcroft-Gault) 91.7 BUN/Creatinine Ratio 26 (6-20) H Glucose Level 103 mg/dL (70-99) H Calcium Level 8.5 mg/dL (8.5-10.1) Total Bilirubin 0.4 mg/dL (0.2-1.0) Aspartate Amino Transferase (AST) 19 U/L (15-37) Alanine Aminotransferase (ALT) 21 U/L (16-63) Alkaline Phosphatase 129 U/L (46-116) H Total Protein 6.6 g/dL (6.4-8.2) Albumin 2.9 g/dL (3.4-5.0) L Albumin/Globulin Ratio 0.8 (1.0-1.7) L Current Medications: Meds: Laboratory Tests Test 05/22/20 06:18 White Blood Count 6.6 x10^3/uL Red Blood Count 4.35 x10^6/uL Hemoglobin 13.0 g/dL Hematocrit 39.8 % Mean Corpuscular Volume 92 fL Mean Corpuscular Hemoglobin 30 pg Mean Corpuscular Hemoglobin Concent 33 g/dL Red Cell Distribution Width 13.9 % Platelet Count 174 x10^3/uL Neutrophils (%) (Auto) 65 % Lymphocytes (%) (Auto) 19 % Monocytes (%) (Auto) 11 % Eosinophils (%) (Auto) 4 % Basophils (%) (Auto) 1 % Neutrophils # (Auto) 4.3 x10^3uL Lymphocytes # (Auto) 1.2 x10^3/uL Monocytes # (Auto) 0.7 x10^3/uL Eosinophils # (Auto) 0.3 x10^3/uL Basophils # (Auto) 0.0 x10^3/uL Sodium Level 142 mmol/L Potassium Level 4.2 mmol/L Chloride Level 106 mmol/L Carbon Dioxide Level 29 mmol/L Anion Gap 7 Blood Urea Nitrogen 21 mg/dL Creatinine 0.8 mg/dL Estimated GFR (Cockcroft-Gault) 91.7 BUN/Creatinine Ratio 26 Glucose Level 103 mg/dL Calcium Level 8.5 mg/dL Total Bilirubin 0.4 mg/dL Aspartate Amino Transf (AST/SGOT) 19 U/L Alanine Aminotransferase (ALT/SGPT) 21 U/L Alkaline Phosphatase 129 U/L Total Protein 6.6 g/dL Albumin 2.9 g/dL Albumin/Globulin Ratio 0.8 Current Medications Medications (Trade) Dose Ordered Sig/Desire Route PRN Reason Start Time Stop Time Status Last Admin Dose Admin Acetaminophen (Tylenol) 650 mg PRN Q6HRS PRN PO MILD PAIN / TEMP > 100.3'F 05/07/20 14:45 Multi-Ingredient Ointment (Analgesic [place]) 1 gar[place] PRN QID PRN TP MUSCLE PAIN 05/07/20 14:45 Al Hydroxide/Mg Hydroxide (Mylanta Plus Xs) 15 ml PRN AFTMEALHC PRN PO DYSPEPSIA 05/07/20 14:45 Magnesium Hydroxide (Milk Of Magnesia) 2,400 mg PRN QHS PRN PO CONSTIPATION 05/07/20 14:45 Acetaminophen (Tylenol) 500 mg PRN Q6HRS PRN PO MILD PAIN / TEMP > 100.3'F 05/07/20 21:45 UNV Lorazepam (Ativan) 0.25 mg DAILY PO 05/08/20 09:00 05/08/20 13:25 DC 05/08/20 08:20 Lorazepam (Ativan) 0.5 mg PRN QHS PRN PO ANXIETY 05/07/20 21:45 05/08/20 13:23 DC Memantine (Namenda) 10 mg DAILY PO 05/08/20 09:00 05/15/20 17:45 DC 05/15/20 08:52 Neomycin/ Polymyxin/ Bacitracin (Triple Antibiotic Ointment) 1 pkt PRN DAILY PRN TP SKIN CLEANSING 05/07/20 21:45 Trazodone HCl (Desyrel) 100 mg QHS PO 05/08/20 21:00 05/07/20 22:05 DC Non-Formulary Medication (Melatonin ) 5 mg QHS PRN SL insomnia 05/07/20 21:45 05/07/20 22:05 DC Morphine Sulfate (Morphine Oral Solution) 5 mg PRN Q3HRS PRN PO MOD-SEV PAIN 05/07/20 22:45 05/14/20 14:22 Trazodone HCl (Desyrel) 100 mg QHS PO 05/07/20 23:00 05/18/20 17:46 DC 05/17/20 19:22 Melatonin (Melatonin) 3 mg PRN QHS PRN PO INSOMNIA 05/07/20 22:45 05/08/20 13:23 DC 05/07/20 22:46 Lorazepam (Ativan) 0.25 mg PRN QHS PRN PO ANXIETY 05/08/20 21:00 05/13/20 21:46 Lorazepam (Ativan) 0.25 mg DAILY PO 05/09/20 09:00 05/13/20 09:00 DC 05/13/20 08:51 Sertraline HCl (Zoloft) 25 mg DAILY PO 05/09/20 09:00 05/11/20 09:59 DC 05/11/20 09:02 Sertraline HCl (Zoloft) 50 mg DAILY PO 05/12/20 09:00 05/14/20 10:49 DC 05/14/20 07:50 Melatonin (Melatonin) 3 mg PRN QHS PRN PO INSOMNIA 05/11/20 18:15 05/21/20 22:57 Mirtazapine (Remeron) 7.5 mg QHS PO 05/11/20 21:00 05/12/20 17:49 DC 05/11/20 19:49 Mirtazapine (Remeron) 15 mg QHS PO 05/12/20 21:00 05/16/20 17:50 DC 05/15/20 21:02 Sertraline HCl (Zoloft) 75 mg DAILY PO 05/15/20 09:00 05/22/20 08:20 Quetiapine Fumarate (SEROquel) 25 mg QHS PO 05/14/20 21:00 05/21/20 19:30 Olanzapine (ZyPREXA ZYDIS) 2.5 mg PRN Q2HR PRN PO PSYCHOSIS 05/15/20 09:45 05/19/20 11:09 Quetiapine Fumarate (SEROquel) 12.5 mg 0900,1700 PO 05/16/20 09:00 05/18/20 17:46 DC 05/18/20 15:48 Amitriptyline HCl (Elavil) 25 mg QHS PO 05/16/20 21:00 05/21/20 19:30 Quetiapine Fumarate (SEROquel) 12.5 mg 0900,1200,1700 PO 05/19/20 09:00 05/22/20 08:19 Trazodone HCl (Desyrel) 50 mg QHS PRN PO INSOMNIA, MAY REPEAT X1 05/18/20 18:00 05/18/20 17:57 DC Trazodone HCl (Desyrel) 50 mg PRN QHS PRN PO INSOMNIA, MAY REPEAT X1 05/18/20 18:00 05/21/20 22:57 I have reviewed the current psychotropics carefully including drug interactions. Risk benefit ratio favors no change other than as noted in my dictated progress note. Diagnosis: Problems: (1) Impulse control disorder, unspecified (2) Anxiety disorder, unspecified (3) Dementia, vascular, with depression (4) Dementia, vascular, with delusions (5) Dementia in Alzheimer's disease with depression (6) Dementia in Alzheimer's disease with delusions (7) Dementia of the Alzheimer's type with early onset with behavioral disturbance (8) Major neurocognitive disorder ELIAS WILLSON MD May 22, 2020 08:24
[2020-05-22 15:31] VITALS: BP 156/94
[2020-05-22] MEDS: traZODone 50 MG TABLET. PO PRN ×2 (20:19→21:35)
[2020-05-22] MEDS: AMITRIPTYLINE HCL 50 MG TABLET PO SCH (20:19)
--- NOTE | 2020-05-22 21:04 | PDOC ---
Exam Note: Avtar Note: Please also refer to the separate dictated note~for this date of service dictated separately.~Patient seen individually. Discussed the patient with Nursing staff reviewed the chart.~Reviewed interim history and current functioning. Reviewed vital signs,~Labs/ Radiology~and current medications noted below. Continue current treatment with the changes noted in the dictated addendum note Assessment: Vital Signs/I&O: Vital Signs Date Time Temp Pulse Resp B/P (MAP) Pulse Ox O2 Delivery O2 Flow Rate FiO2 05/22/20 15:31 98.8 91 20 156/94 (114) 96 Room Air I & O 05/21/20 05/21/20 05/22/20 14:59 22:59 06:59 Intake Total 0 ml 720 ml Balance 0 ml 720 ml Labs: Laboratory Tests Test 05/22/20 06:18 White Blood Count 6.6 x10^3/uL (4.0-11.0) Red Blood Count 4.35 x10^6/uL (4.30-5.70) Hemoglobin 13.0 g/dL (13.0-17.5) Hematocrit 39.8 % (39.0-53.0) Mean Corpuscular Volume 92 fL (79-100) Mean Corpuscular Hemoglobin 30 pg (25-35) Mean Corpuscular Hemoglobin Concent 33 g/dL (31-37) Red Cell Distribution Width 13.9 % (11.5-14.5) Platelet Count 174 x10^3/uL (140-400) Neutrophils (%) (Auto) 65 % (31-73) Lymphocytes (%) (Auto) 19 % (24-48) L Monocytes (%) (Auto) 11 % (0-9) H Eosinophils (%) (Auto) 4 % (0-3) H Basophils (%) (Auto) 1 % (0-3) Neutrophils # (Auto) 4.3 x10^3uL (1.8-7.7) Lymphocytes # (Auto) 1.2 x10^3/uL (1.0-4.8) Monocytes # (Auto) 0.7 x10^3/uL (0.0-1.1) Eosinophils # (Auto) 0.3 x10^3/uL (0.0-0.7) Basophils # (Auto) 0.0 x10^3/uL (0.0-0.2) Sodium Level 142 mmol/L (136-145) Potassium Level 4.2 mmol/L (3.5-5.1) Chloride Level 106 mmol/L (98-107) Carbon Dioxide Level 29 mmol/L (21-32) Anion Gap 7 (6-14) Blood Urea Nitrogen 21 mg/dL (8-26) Creatinine 0.8 mg/dL (0.7-1.3) Estimated GFR (Cockcroft-Gault) 91.7 BUN/Creatinine Ratio 26 (6-20) H Glucose Level 103 mg/dL (70-99) H Calcium Level 8.5 mg/dL (8.5-10.1) Total Bilirubin 0.4 mg/dL (0.2-1.0) Aspartate Amino Transferase (AST) 19 U/L (15-37) Alanine Aminotransferase (ALT) 21 U/L (16-63) Alkaline Phosphatase 129 U/L (46-116) H Total Protein 6.6 g/dL (6.4-8.2) Albumin 2.9 g/dL (3.4-5.0) L Albumin/Globulin Ratio 0.8 (1.0-1.7) L Current Medications: Meds: Current Medications Medications (Trade) Dose Ordered Sig/Desire Route PRN Reason Start Time Stop Time Status Last Admin Dose Admin Amitriptyline HCl (Elavil) 50 mg QHS PO 05/22/20 21:00 05/22/20 20:19 I have reviewed the current psychotropics carefully including drug interactions. Risk benefit ratio favors no change other than as noted in my dictated progress note. Diagnosis: Problems: (1) Impulse control disorder, unspecified (2) Anxiety disorder, unspecified (3) Dementia, vascular, with depression (4) Dementia, vascular, with delusions (5) Dementia in Alzheimer's disease with depression (6) Dementia in Alzheimer's disease with delusions (7) Dementia of the Alzheimer's type with early onset with behavioral disturbance (8) Major neurocognitive disorder ELIAS WILLSON MD May 22, 2020 21:03
[2020-05-22] MEDS: MELATONIN 3 MG TABLET PO PRN (21:35)
[2020-05-23 06:13] VITALS: BP 159/84
[2020-05-23] MEDS: QUEtiapine 25 MG TABLET. PO SCH ×4 (08:04→20:28)
[2020-05-23] MEDS: SERTRALINE 50 MG TABLET. PO SCH (08:04)
[2020-05-23 15:59] VITALS: BP 175/80
[2020-05-23] MEDS: traZODone 50 MG TABLET. PO PRN ×2 (20:28→22:07)
[2020-05-23] MEDS: AMITRIPTYLINE HCL 50 MG TABLET PO SCH (20:28)
--- NOTE | 2020-05-23 20:54 | PDOC ---
Exam Note: Avtar Note: Please also refer to the separate dictated note~for this date of service dictated separately.~Patient seen individually. Discussed the patient with Nursing staff reviewed the chart.~Reviewed interim history and current functioning. Reviewed vital signs,~Labs/ Radiology~and current medications noted below. Continue current treatment with the changes noted in the dictated addendum note Assessment: Vital Signs/I&O: Vital Signs Date Time Temp Pulse Resp B/P (MAP) Pulse Ox O2 Delivery O2 Flow Rate FiO2 05/23/20 15:59 97.8 76 16 175/80 (111) 97 Room Air I & O 05/22/20 05/22/20 05/23/20 15:00 23:00 07:00 Intake Total 960 ml 360 ml Balance 960 ml 360 ml Current Medications: Meds: Current Medications Medications (Trade) Dose Ordered Sig/Desire Route PRN Reason Start Time Stop Time Status Last Admin Dose Admin Amitriptyline HCl (Elavil) 50 mg QHS PO 05/22/20 21:00 05/23/20 20:28 I have reviewed the current psychotropics carefully including drug interactions. Risk benefit ratio favors no change other than as noted in my dictated progress note. Diagnosis: Problems: (1) Impulse control disorder, unspecified (2) Anxiety disorder, unspecified (3) Dementia, vascular, with depression (4) Dementia, vascular, with delusions (5) Dementia in Alzheimer's disease with depression (6) Dementia in Alzheimer's disease with delusions (7) Dementia of the Alzheimer's type with early onset with behavioral disturbance (8) Major neurocognitive disorder ELIAS WILLSON MD May 23, 2020 20:54
[2020-05-23] MEDS: MELATONIN 3 MG TABLET PO PRN (22:03)
[2020-05-24] MEDS: traZODone 50 MG TABLET. PO PRN ×2 (00:41→19:41)
[2020-05-24 06:18] VITALS: BP 176/95
--- NOTE | 2020-05-24 08:26 | PDOC ---
Exam Note: Avtar Note: This note is a late entry for 05/22/2020 covers elements not covered in my initial note. Subjective: The patient was seen individually in the evening of 05/22/2020 with Anabela LEYVA, discussed and reviewed the chart. He slept 2-1/4 hours previous night. He is somewhat confused, resistive with medications, enters the space of other patients, restless. Review of Systems: No CV, pulmonary, eye, ENT system symptoms on review. Mental Status Exam: The patient is oriented to himself. Insight and judgment, recent and remote memory, attention and concentration, fund of knowledge is poor consistent with his diagnoses. Laboratory Data: Reviewed. 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 Anxiety disorder unspecified. Impulse control disorder unspecified. Plan: He is still not sleeping well. We will increase amitriptyline from 25 mg h.s. to 50 mg h.s. Rest unchanged for now. Assessment: Vital Signs/I&O: Vital Signs Date Time Temp Pulse Resp B/P (MAP) Pulse Ox O2 Delivery O2 Flow Rate FiO2 05/24/20 06:18 97.5 68 16 176/95 (122) 97 05/23/20 15:59 Room Air I & O 05/23/20 05/23/20 05/24/20 15:00 23:00 07:00 Intake Total 660 ml 720 ml Balance 660 ml 720 ml Current Medications: Meds: Current Medications Medications (Trade) Dose Ordered Sig/Desire Route PRN Reason Start Time Stop Time Status Last Admin Dose Admin Acetaminophen (Tylenol) 650 mg PRN Q6HRS PRN PO MILD PAIN / TEMP > 100.3'F 05/07/20 14:45 Multi-Ingredient Ointment (Analgesic [place]) 1 [place] PRN QID PRN TP MUSCLE PAIN 05/07/20 14:45 Al Hydroxide/Mg Hydroxide (Mylanta Plus Xs) 15 ml PRN AFTMEALHC PRN PO DYSPEPSIA 05/07/20 14:45 Magnesium Hydroxide (Milk Of Magnesia) 2,400 mg PRN QHS PRN PO CONSTIPATION 05/07/20 14:45 05/23/20 23:03 Acetaminophen (Tylenol) 500 mg PRN Q6HRS PRN PO MILD PAIN / TEMP > 100.3'F 05/07/20 21:45 UNV Lorazepam (Ativan) 0.25 mg DAILY PO 05/08/20 09:00 05/08/20 13:25 DC 05/08/20 08:20 Lorazepam (Ativan) 0.5 mg PRN QHS PRN PO ANXIETY 05/07/20 21:45 05/08/20 13:23 DC Memantine (Namenda) 10 mg DAILY PO 05/08/20 09:00 05/15/20 17:45 DC 05/15/20 08:52 Neomycin/ Polymyxin/ Bacitracin (Triple Antibiotic Ointment) 1 pkt PRN DAILY PRN TP SKIN CLEANSING 05/07/20 21:45 Trazodone HCl (Desyrel) 100 mg QHS PO 05/08/20 21:00 05/07/20 22:05 DC Non-Formulary Medication (Melatonin ) 5 mg QHS PRN SL insomnia 05/07/20 21:45 05/07/20 22:05 DC Morphine Sulfate (Morphine Oral Solution) 5 mg PRN Q3HRS PRN PO MOD-SEV PAIN 05/07/20 22:45 05/14/20 14:22 Trazodone HCl (Desyrel) 100 mg QHS PO 05/07/20 23:00 05/18/20 17:46 DC 05/17/20 19:22 Melatonin (Melatonin) 3 mg PRN QHS PRN PO INSOMNIA 05/07/20 22:45 05/08/20 13:23 DC 05/07/20 22:46 Lorazepam (Ativan) 0.25 mg PRN QHS PRN PO ANXIETY 05/08/20 21:00 05/13/20 21:46 Lorazepam (Ativan) 0.25 mg DAILY PO 05/09/20 09:00 05/13/20 09:00 DC 05/13/20 08:51 Sertraline HCl (Zoloft) 25 mg DAILY PO 05/09/20 09:00 05/11/20 09:59 DC 05/11/20 09:02 Sertraline HCl (Zoloft) 50 mg DAILY PO 05/12/20 09:00 05/14/20 10:49 DC 05/14/20 07:50 Melatonin (Melatonin) 3 mg PRN QHS PRN PO INSOMNIA, 1ST CHOICE 05/11/20 18:15 05/23/20 22:03 Mirtazapine (Remeron) 7.5 mg QHS PO 05/11/20 21:00 05/12/20 17:49 DC 05/11/20 19:49 Mirtazapine (Remeron) 15 mg QHS PO 05/12/20 21:00 05/16/20 17:50 DC 05/15/20 21:02 Sertraline HCl (Zoloft) 75 mg DAILY PO 05/15/20 09:00 05/23/20 08:04 Quetiapine Fumarate (SEROquel) 25 mg QHS PO 05/14/20 21:00 05/23/20 20:28 Olanzapine (ZyPREXA ZYDIS) 2.5 mg PRN Q2HR PRN PO PSYCHOSIS 05/15/20 09:45 05/23/20 22:07 Quetiapine Fumarate (SEROquel) 12.5 mg 0900,1700 PO 05/16/20 09:00 05/18/20 17:46 DC 05/18/20 15:48 Amitriptyline HCl (Elavil) 25 mg QHS PO 05/16/20 21:00 05/22/20 18:05 DC 05/21/20 19:30 Quetiapine Fumarate (SEROquel) 12.5 mg 0900,1200,1700 PO 05/19/20 09:00 05/23/20 17:00 Trazodone HCl (Desyrel) 50 mg QHS PRN PO INSOMNIA, MAY REPEAT X1 05/18/20 18:00 05/18/20 17:57 DC Trazodone HCl (Desyrel) 50 mg PRN QHS PRN PO INSOMNIA, MRx1, 2ND CHOICE 05/18/20 18:00 05/24/20 00:41 Amitriptyline HCl (Elavil) 50 mg QHS PO 05/22/20 21:00 05/23/20 20:28 I have reviewed the current psychotropics carefully including drug interactions. Risk benefit ratio favors no change other than as noted in my dictated progress note. Diagnosis: Problems: (1) Impulse control disorder, unspecified (2) Anxiety disorder, unspecified (3) Dementia, vascular, with depression (4) Dementia, vascular, with delusions (5) Dementia in Alzheimer's disease with depression (6) Dementia in Alzheimer's disease with delusions (7) Dementia of the Alzheimer's type with early onset with behavioral disturbance (8) Major neurocognitive disorder ELIAS WILLSON MD May 24, 2020 08:26
--- NOTE | 2020-05-24 08:41 | PDOC ---
Exam Note: Avtar Note: This note is a late entry for 05/23/2020 covers elements not covered in my initial note. Subjective: The patient was seen individually in the evening of 05/23/2020 with Laura LEYVA, discussed and reviewed the chart. He slept 4 hours previous night. Seroquel will be held if he is sedated. Review of Systems: No CV, pulmonary, eye, ENT system symptoms on review. He is very disorganized. Mental Status Exam: The patient is oriented to himself. Insight and judgment, recent and remote memory, attention and concentration, fund of knowledge is poor consistent with his diagnoses. Laboratory Data: Reviewed. 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 Anxiety disorder unspecified. Impulse control disorder unspecified. Plan: We will adjust psychotropics further as clinically indicated Assessment: Vital Signs/I&O: Vital Signs Date Time Temp Pulse Resp B/P (MAP) Pulse Ox O2 Delivery O2 Flow Rate FiO2 05/24/20 06:18 97.5 68 16 176/95 (122) 97 05/23/20 15:59 Room Air I & O 05/23/20 05/23/20 05/24/20 15:00 23:00 07:00 Intake Total 660 ml 720 ml Balance 660 ml 720 ml Current Medications: Meds: Current Medications Medications (Trade) Dose Ordered Sig/Desire Route PRN Reason Start Time Stop Time Status Last Admin Dose Admin Acetaminophen (Tylenol) 650 mg PRN Q6HRS PRN PO MILD PAIN / TEMP > 100.3'F 05/07/20 14:45 Multi-Ingredient Ointment (Analgesic [place]) 1 gar[place] PRN QID PRN TP MUSCLE PAIN 05/07/20 14:45 Al Hydroxide/Mg Hydroxide (Mylanta Plus Xs) 15 ml PRN AFTMEALHC PRN PO DYSPEPSIA 05/07/20 14:45 Magnesium Hydroxide (Milk Of Magnesia) 2,400 mg PRN QHS PRN PO CONSTIPATION 05/07/20 14:45 05/23/20 23:03 Acetaminophen (Tylenol) 500 mg PRN Q6HRS PRN PO MILD PAIN / TEMP > 100.3'F 05/07/20 21:45 UNV Lorazepam (Ativan) 0.25 mg DAILY PO 05/08/20 09:00 05/08/20 13:25 DC 05/08/20 08:20 Lorazepam (Ativan) 0.5 mg PRN QHS PRN PO ANXIETY 05/07/20 21:45 05/08/20 13:23 DC Memantine (Namenda) 10 mg DAILY PO 05/08/20 09:00 05/15/20 17:45 DC 05/15/20 08:52 Neomycin/ Polymyxin/ Bacitracin (Triple Antibiotic Ointment) 1 pkt PRN DAILY PRN TP SKIN CLEANSING 05/07/20 21:45 Trazodone HCl (Desyrel) 100 mg QHS PO 05/08/20 21:00 05/07/20 22:05 DC Non-Formulary Medication (Melatonin ) 5 mg QHS PRN SL insomnia 05/07/20 21:45 05/07/20 22:05 DC Morphine Sulfate (Morphine Oral Solution) 5 mg PRN Q3HRS PRN PO MOD-SEV PAIN 05/07/20 22:45 05/14/20 14:22 Trazodone HCl (Desyrel) 100 mg QHS PO 05/07/20 23:00 05/18/20 17:46 DC 05/17/20 19:22 Melatonin (Melatonin) 3 mg PRN QHS PRN PO INSOMNIA 05/07/20 22:45 05/08/20 13:23 DC 05/07/20 22:46 Lorazepam (Ativan) 0.25 mg PRN QHS PRN PO ANXIETY 05/08/20 21:00 05/13/20 21:46 Lorazepam (Ativan) 0.25 mg DAILY PO 05/09/20 09:00 05/13/20 09:00 DC 05/13/20 08:51 Sertraline HCl (Zoloft) 25 mg DAILY PO 05/09/20 09:00 05/11/20 09:59 DC 05/11/20 09:02 Sertraline HCl (Zoloft) 50 mg DAILY PO 05/12/20 09:00 05/14/20 10:49 DC 05/14/20 07:50 Melatonin (Melatonin) 3 mg PRN QHS PRN PO INSOMNIA, 1ST CHOICE 05/11/20 18:15 05/23/20 22:03 Mirtazapine (Remeron) 7.5 mg QHS PO 05/11/20 21:00 05/12/20 17:49 DC 05/11/20 19:49 Mirtazapine (Remeron) 15 mg QHS PO 05/12/20 21:00 05/16/20 17:50 DC 05/15/20 21:02 Sertraline HCl (Zoloft) 75 mg DAILY PO 05/15/20 09:00 05/23/20 08:04 Quetiapine Fumarate (SEROquel) 25 mg QHS PO 05/14/20 21:00 05/23/20 20:28 Olanzapine (ZyPREXA ZYDIS) 2.5 mg PRN Q2HR PRN PO PSYCHOSIS 05/15/20 09:45 05/23/20 22:07 Quetiapine Fumarate (SEROquel) 12.5 mg 0900,1700 PO 05/16/20 09:00 05/18/20 17:46 DC 05/18/20 15:48 Amitriptyline HCl (Elavil) 25 mg QHS PO 05/16/20 21:00 05/22/20 18:05 DC 05/21/20 19:30 Quetiapine Fumarate (SEROquel) 12.5 mg 0900,1200,1700 PO 05/19/20 09:00 05/23/20 17:00 Trazodone HCl (Desyrel) 50 mg QHS PRN PO INSOMNIA, MAY REPEAT X1 05/18/20 18:00 05/18/20 17:57 DC Trazodone HCl (Desyrel) 50 mg PRN QHS PRN PO INSOMNIA, MRx1, 2ND CHOICE 05/18/20 18:00 05/24/20 00:41 Amitriptyline HCl (Elavil) 50 mg QHS PO 05/22/20 21:00 05/23/20 20:28 I have reviewed the current psychotropics carefully including drug interactions. Risk benefit ratio favors no change other than as noted in my dictated progress note. Diagnosis: Problems: (1) Impulse control disorder, unspecified (2) Anxiety disorder, unspecified (3) Dementia, vascular, with depression (4) Dementia, vascular, with delusions (5) Dementia in Alzheimer's disease with depression (6) Dementia in Alzheimer's disease with delusions (7) Dementia of the Alzheimer's type with early onset with behavioral disturbance (8) Major neurocognitive disorder ELIAS WILLSON MD May 24, 2020 08:41
[2020-05-24] MEDS: SERTRALINE 50 MG TABLET. PO SCH (09:11)
[2020-05-24] MEDS: QUEtiapine 25 MG TABLET. PO SCH ×4 (09:11→19:41)
[2020-05-24 19:40] VITALS: BP 154/73
[2020-05-24] MEDS: AMITRIPTYLINE HCL 50 MG TABLET PO SCH (19:41)
--- NOTE | 2020-05-24 21:58 | PDOC ---
Exam Note: Avtar Note: Please also refer to the separate dictated note~for this date of service dictated separately.~Patient seen individually. Discussed the patient with Nursing staff reviewed the chart.~Reviewed interim history and current functioning. Reviewed vital signs,~Labs/ Radiology~and current medications noted below. Continue current treatment with the changes noted in the dictated addendum note Assessment: Vital Signs/I&O: Vital Signs Date Time Temp Pulse Resp B/P (MAP) Pulse Ox O2 Delivery O2 Flow Rate FiO2 05/24/20 19:40 97.0 79 20 154/73 (100) 97 Room Air I & O 05/23/20 05/23/20 05/24/20 15:00 23:00 07:00 Intake Total 660 ml 720 ml Balance 660 ml 720 ml Current Medications: I have reviewed the current psychotropics carefully including drug interactions. Risk benefit ratio favors no change other than as noted in my dictated progress note. Diagnosis: Problems: (1) Impulse control disorder, unspecified (2) Anxiety disorder, unspecified (3) Dementia, vascular, with depression (4) Dementia, vascular, with delusions (5) Dementia in Alzheimer's disease with depression (6) Dementia in Alzheimer's disease with delusions (7) Dementia of the Alzheimer's type with early onset with behavioral disturbance (8) Major neurocognitive disorder ELIAS WILLSON MD May 24, 2020 21:58
[2020-05-25 06:37] VITALS: BP 142/62
--- NOTE | 2020-05-25 08:47 | PDOC ---
Exam Note: Avtar Note: This note is a late entry for 05/24/2020 covers elements not covered in my initial note. Subjective: The patient was seen individually in the evening of 05/24/2020 with Lina LEYVA, discussed and reviewed the chart. He slept 4-1/2 hours previous night. Patient has been somewhat restless previous night. He slept through lunch this morning, then was very hungry, grabbing food from others, trying to eat and staff assisted. Review of Systems: No CV, pulmonary, eye, ENT system symptoms on review. Reliability poor. Mental Status Exam: The patient is oriented to himself. Insight and judgment, recent and remote memory, attention and concentration, fund of knowledge is poor consistent with his diagnoses. Laboratory Data: Reviewed. Impression: Major neurocognitive disorder Alzheimer vascular with delusion, dep ression, behavioral disturbance. Major depressive disorder with psychotic features. Anxiety disorder unspecified. Impulse control disorder unspecified. Plan: No change from initial note. Assessment: Vital Signs/I&O: Vital Signs Date Time Temp Pulse Resp B/P (MAP) Pulse Ox O2 Delivery O2 Flow Rate FiO2 05/25/20 06:37 98.3 60 20 142/62 (88) 95 Room Air I & O 05/24/20 05/24/20 05/25/20 15:00 23:00 07:00 Intake Total 300 ml 840 ml Output Total 250 ml Balance 300 ml 590 ml Current Medications: Meds: Current Medications Medications (Trade) Dose Ordered Sig/Desire Route PRN Reason Start Time Stop Time Status Last Admin Dose Admin Acetaminophen (Tylenol) 650 mg PRN Q6HRS PRN PO MILD PAIN / TEMP > 100.3'F 05/07/20 14:45 Multi-Ingredient Ointment (Analgesic [place]) 1 [place] PRN QID PRN TP MUSCLE PAIN 05/07/20 14:45 Al Hydroxide/Mg Hydroxide (Mylanta Plus Xs) 15 ml PRN AFTMEALHC PRN PO DYSPEPSIA 05/07/20 14:45 Magnesium Hydroxide (Milk Of Magnesia) 2,400 mg PRN QHS PRN PO CONSTIPATION 05/07/20 14:45 05/23/20 23:03 Acetaminophen (Tylenol) 500 mg PRN Q6HRS PRN PO MILD PAIN / TEMP > 100.3'F 05/07/20 21:45 UNV Lorazepam (Ativan) 0.25 mg DAILY PO 05/08/20 09:00 05/08/20 13:25 DC 05/08/20 08:20 Lorazepam (Ativan) 0.5 mg PRN QHS PRN PO ANXIETY 05/07/20 21:45 05/08/20 13:23 DC Memantine (Namenda) 10 mg DAILY PO 05/08/20 09:00 05/15/20 17:45 DC 05/15/20 08:52 Neomycin/ Polymyxin/ Bacitracin (Triple Antibiotic Ointment) 1 pkt PRN DAILY PRN TP SKIN CLEANSING 05/07/20 21:45 Trazodone HCl (Desyrel) 100 mg QHS PO 05/08/20 21:00 05/07/20 22:05 DC Non-Formulary Medication (Melatonin ) 5 mg QHS PRN SL insomnia 05/07/20 21:45 05/07/20 22:05 DC Morphine Sulfate (Morphine Oral Solution) 5 mg PRN Q3HRS PRN PO MOD-SEV PAIN 05/07/20 22:45 05/14/20 14:22 Trazodone HCl (Desyrel) 100 mg QHS PO 05/07/20 23:00 05/18/20 17:46 DC 05/17/20 19:22 Melatonin (Melatonin) 3 mg PRN QHS PRN PO INSOMNIA 05/07/20 22:45 05/08/20 13:23 DC 05/07/20 22:46 Lorazepam (Ativan) 0.25 mg PRN QHS PRN PO ANXIETY 05/08/20 21:00 05/13/20 21:46 Lorazepam (Ativan) 0.25 mg DAILY PO 05/09/20 09:00 05/13/20 09:00 DC 05/13/20 08:51 Sertraline HCl (Zoloft) 25 mg DAILY PO 05/09/20 09:00 05/11/20 09:59 DC 05/11/20 09:02 Sertraline HCl (Zoloft) 50 mg DAILY PO 05/12/20 09:00 05/14/20 10:49 DC 05/14/20 07:50 Melatonin (Melatonin) 3 mg PRN QHS PRN PO INSOMNIA, 1ST CHOICE 05/11/20 18:15 05/23/20 22:03 Mirtazapine (Remeron) 7.5 mg QHS PO 05/11/20 21:00 05/12/20 17:49 DC 05/11/20 19:49 Mirtazapine (Remeron) 15 mg QHS PO 05/12/20 21:00 05/16/20 17:50 DC 05/15/20 21:02 Sertraline HCl (Zoloft) 75 mg DAILY PO 05/15/20 09:00 05/24/20 09:11 Quetiapine Fumarate (SEROquel) 25 mg QHS PO 05/14/20 21:00 05/24/20 19:41 Olanzapine (ZyPREXA ZYDIS) 2.5 mg PRN Q2HR PRN PO PSYCHOSIS 05/15/20 09:45 05/24/20 19:42 Quetiapine Fumarate (SEROquel) 12.5 mg 0900,1700 PO 05/16/20 09:00 05/18/20 17:46 DC 05/18/20 15:48 Amitriptyline HCl (Elavil) 25 mg QHS PO 05/16/20 21:00 05/22/20 18:05 DC 05/21/20 19:30 Quetiapine Fumarate (SEROquel) 12.5 mg 0900,1200,1700 PO 05/19/20 09:00 05/24/20 17:20 Trazodone HCl (Desyrel) 50 mg QHS PRN PO INSOMNIA, MAY REPEAT X1 05/18/20 18:00 05/18/20 17:57 DC Trazodone HCl (Desyrel) 50 mg PRN QHS PRN PO INSOMNIA, MRx1, 2ND CHOICE 05/18/20 18:00 05/24/20 19:41 Amitriptyline HCl (Elavil) 50 mg QHS PO 05/22/20 21:00 05/24/20 19:41 I have reviewed the current psychotropics carefully including drug interactions. Risk benefit ratio favors no change other than as noted in my dictated progress note. Diagnosis: Problems: (1) Impulse control disorder, unspecified (2) Anxiety disorder, unspecified (3) Dementia, vascular, with depression (4) Dementia, vascular, with delusions (5) Dementia in Alzheimer's disease with depression (6) Dementia in Alzheimer's disease with delusions (7) Dementia of the Alzheimer's type with early onset with behavioral disturbance (8) Major neurocognitive disorder ELIAS WILLSON MD May 25, 2020 08:47
[2020-05-25] MEDS: SERTRALINE 50 MG TABLET. PO SCH (09:05)
[2020-05-25] MEDS: QUEtiapine 25 MG TABLET. PO SCH ×4 (09:05→19:54)
[2020-05-25 15:30] VITALS: BP 145/73
[2020-05-25] MEDS: traZODone 50 MG TABLET. PO PRN (19:54)
[2020-05-25] MEDS: AMITRIPTYLINE HCL 50 MG TABLET PO SCH (19:54)
--- NOTE | 2020-05-25 22:05 | PDOC ---
Exam Note: Avtar Note: Please also refer to the separate dictated note~for this date of service dictated separately.~Patient seen individually. Discussed the patient with Nursing staff reviewed the chart.~Reviewed interim history and current functioning. Reviewed vital signs,~Labs/ Radiology~and current medications noted below. Continue current treatment with the changes noted in the dictated addendum note Assessment: Vital Signs/I&O: Vital Signs Date Time Temp Pulse Resp B/P (MAP) Pulse Ox O2 Delivery O2 Flow Rate FiO2 05/25/20 15:30 98.3 63 18 145/73 (97) 96 05/25/20 06:37 Room Air I & O 05/24/20 05/24/20 05/25/20 15:00 23:00 07:00 Intake Total 300 ml 840 ml Output Total 250 ml Balance 300 ml 590 ml Current Medications: Meds: Current Medications Medications (Trade) Dose Ordered Sig/Desire Route PRN Reason Start Time Stop Time Status Last Admin Dose Admin Acetaminophen (Tylenol) 650 mg PRN Q6HRS PRN PO MILD PAIN / TEMP > 100.3'F 05/07/20 14:45 Multi-Ingredient Ointment (Analgesic [place]) 1 [place] PRN QID PRN TP MUSCLE PAIN 05/07/20 14:45 Al Hydroxide/Mg Hydroxide (Mylanta Plus Xs) 15 ml PRN AFTMEALHC PRN PO DYSPEPSIA 05/07/20 14:45 Magnesium Hydroxide (Milk Of Magnesia) 2,400 mg PRN QHS PRN PO CONSTIPATION 05/07/20 14:45 05/23/20 23:03 Acetaminophen (Tylenol) 500 mg PRN Q6HRS PRN PO MILD PAIN / TEMP > 100.3'F 05/07/20 21:45 UNV Lorazepam (Ativan) 0.25 mg DAILY PO 05/08/20 09:00 05/08/20 13:25 DC 05/08/20 08:20 Lorazepam (Ativan) 0.5 mg PRN QHS PRN PO ANXIETY 05/07/20 21:45 05/08/20 13:23 DC Memantine (Namenda) 10 mg DAILY PO 05/08/20 09:00 05/15/20 17:45 DC 05/15/20 08:52 Neomycin/ Polymyxin/ Bacitracin (Triple Antibiotic Ointment) 1 pkt PRN DAILY PRN TP SKIN CLEANSING 05/07/20 21:45 Trazodone HCl (Desyrel) 100 mg QHS PO 05/08/20 21:00 05/07/20 22:05 DC Non-Formulary Medication (Melatonin ) 5 mg QHS PRN SL insomnia 05/07/20 21:45 05/07/20 22:05 DC Morphine Sulfate (Morphine Oral Solution) 5 mg PRN Q3HRS PRN PO MOD-SEV PAIN 05/07/20 22:45 05/14/20 14:22 Trazodone HCl (Desyrel) 100 mg QHS PO 05/07/20 23:00 05/18/20 17:46 DC 05/17/20 19:22 Melatonin (Melatonin) 3 mg PRN QHS PRN PO INSOMNIA 05/07/20 22:45 05/08/20 13:23 DC 05/07/20 22:46 Lorazepam (Ativan) 0.25 mg PRN QHS PRN PO ANXIETY 05/08/20 21:00 05/13/20 21:46 Lorazepam (Ativan) 0.25 mg DAILY PO 05/09/20 09:00 05/13/20 09:00 DC 05/13/20 08:51 Sertraline HCl (Zoloft) 25 mg DAILY PO 05/09/20 09:00 05/11/20 09:59 DC 05/11/20 09:02 Sertraline HCl (Zoloft) 50 mg DAILY PO 05/12/20 09:00 05/14/20 10:49 DC 05/14/20 07:50 Melatonin (Melatonin) 3 mg PRN QHS PRN PO INSOMNIA, 1ST CHOICE 05/11/20 18:15 05/23/20 22:03 Mirtazapine (Remeron) 7.5 mg QHS PO 05/11/20 21:00 05/12/20 17:49 DC 05/11/20 19:49 Mirtazapine (Remeron) 15 mg QHS PO 05/12/20 21:00 05/16/20 17:50 DC 05/15/20 21:02 Sertraline HCl (Zoloft) 75 mg DAILY PO 05/15/20 09:00 05/25/20 09:05 Quetiapine Fumarate (SEROquel) 25 mg QHS PO 05/14/20 21:00 05/25/20 19:54 Olanzapine (ZyPREXA ZYDIS) 2.5 mg PRN Q2HR PRN PO PSYCHOSIS 05/15/20 09:45 05/24/20 19:42 Quetiapine Fumarate (SEROquel) 12.5 mg 0900,1700 PO 05/16/20 09:00 05/18/20 17:46 DC 05/18/20 15:48 Amitriptyline HCl (Elavil) 25 mg QHS PO 05/16/20 21:00 05/22/20 18:05 DC 05/21/20 19:30 Quetiapine Fumarate (SEROquel) 12.5 mg 0900,1200,1700 PO 05/19/20 09:00 05/25/20 17:16 Trazodone HCl (Desyrel) 50 mg QHS PRN PO INSOMNIA, MAY REPEAT X1 05/18/20 18:00 05/18/20 17:57 DC Trazodone HCl (Desyrel) 50 mg PRN QHS PRN PO INSOMNIA, MRx1, 2ND CHOICE 05/18/20 18:00 05/25/20 19:54 Amitriptyline HCl (Elavil) 50 mg QHS PO 05/22/20 21:00 05/25/20 19:54 I have reviewed the current psychotropics carefully including drug interactions. Risk benefit ratio favors no change other than as noted in my dictated progress note. Diagnosis: Problems: (1) Impulse control disorder, unspecified (2) Anxiety disorder, unspecified (3) Dementia, vascular, with depression (4) Dementia, vascular, with delusions (5) Dementia in Alzheimer's disease with depression (6) Dementia in Alzheimer's disease with delusions (7) Dementia of the Alzheimer's type with early onset with behavioral disturbance (8) Major neurocognitive disorder ELIAS WILLSON MD May 25, 2020 22:05
[2020-05-26] MEDS: QUEtiapine 25 MG TABLET. PO SCH ×4 (07:33→19:58)
[2020-05-26] MEDS: SERTRALINE 50 MG TABLET. PO SCH (07:33)
--- NOTE | 2020-05-26 10:45 | PDOC ---
Exam Note: Avtar Note: This note is a late entry for 05/25/2020 covers elements not covered in my initial note. Subjective: The patient was seen individually in the evening of 05/25/2020 with Lina LEYVA, discussed and reviewed the chart. He slept 7-1/4 hours previous night. Patient remains disorganized, not aggressive. He has been wandering. Review of Systems: No CV, pulmonary, eye, ENT system symptoms on review. Mental Status Exam: The patient is oriented to himself. Insight and judgment, recent and remote memory, attention and concentration, fund of knowledge is poor consistent with his diagnoses. Laboratory Data: Reviewed. 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 Anxiety disorder unspecified. Impulse control disorder unspecified. Plan: No change from initial note. We will make further adjustments in psychotropics as clinically indicated. Assessment: Vital Signs/I&O: Vital Signs Date Time Temp Pulse Resp B/P (MAP) Pulse Ox O2 Delivery O2 Flow Rate FiO2 05/25/20 15:30 98.3 63 18 145/73 (97) 96 05/25/20 06:37 Room Air I & O 05/25/20 05/25/20 05/26/20 15:00 23:00 07:00 Intake Total 480 ml 320 ml Balance 480 ml 320 ml Current Medications: Meds: Current Medications Medications (Trade) Dose Ordered Sig/Desire Route PRN Reason Start Time Stop Time Status Last Admin Dose Admin Acetaminophen (Tylenol) 650 mg PRN Q6HRS PRN PO MILD PAIN / TEMP > 100.3'F 05/07/20 14:45 Multi-Ingredient Ointment (Analgesic [place]) 1 [place] PRN QID PRN TP MUSCLE PAIN 05/07/20 14:45 Al Hydroxide/Mg Hydroxide (Mylanta Plus Xs) 15 ml PRN AFTMEALHC PRN PO DYSPEPSIA 05/07/20 14:45 Magnesium Hydroxide (Milk Of Magnesia) 2,400 mg PRN QHS PRN PO CONSTIPATION 05/07/20 14:45 05/23/20 23:03 Acetaminophen (Tylenol) 500 mg PRN Q6HRS PRN PO MILD PAIN / TEMP > 100.3'F 05/07/20 21:45 UNV Lorazepam (Ativan) 0.25 mg DAILY PO 2/26/21 09:00 05/08/20 13:25 DC 05/08/20 08:20 Lorazepam (Ativan) 0.5 mg PRN QHS PRN PO ANXIETY 05/07/20 21:45 05/08/20 13:23 DC Memantine (Namenda) 10 mg DAILY PO 05/08/20 09:00 05/15/20 17:45 DC 05/15/20 08:52 Neomycin/ Polymyxin/ Bacitracin (Triple Antibiotic Ointment) 1 pkt PRN DAILY PRN TP SKIN CLEANSING 05/07/20 21:45 Trazodone HCl (Desyrel) 100 mg QHS PO 05/08/20 21:00 05/07/20 22:05 DC Non-Formulary Medication (Melatonin ) 5 mg QHS PRN SL insomnia 05/07/20 21:45 05/07/20 22:05 DC Morphine Sulfate (Morphine Oral Solution) 5 mg PRN Q3HRS PRN PO MOD-SEV PAIN 05/07/20 22:45 05/14/20 14:22 Trazodone HCl (Desyrel) 100 mg QHS PO 05/07/20 23:00 05/18/20 17:46 DC 05/17/20 19:22 Melatonin (Melatonin) 3 mg PRN QHS PRN PO INSOMNIA 05/07/20 22:45 05/08/20 13:23 DC 05/07/20 22:46 Lorazepam (Ativan) 0.25 mg PRN QHS PRN PO ANXIETY 05/08/20 21:00 05/13/20 21:46 Lorazepam (Ativan) 0.25 mg DAILY PO 05/09/20 09:00 05/13/20 09:00 DC 05/13/20 08:51 Sertraline HCl (Zoloft) 25 mg DAILY PO 05/09/20 09:00 05/11/20 09:59 DC 05/11/20 09:02 Sertraline HCl (Zoloft) 50 mg DAILY PO 05/12/20 09:00 05/14/20 10:49 DC 05/14/20 07:50 Melatonin (Melatonin) 3 mg PRN QHS PRN PO INSOMNIA, 1ST CHOICE 05/11/20 18:15 05/23/20 22:03 Mirtazapine (Remeron) 7.5 mg QHS PO 05/11/20 21:00 05/12/20 17:49 DC 05/11/20 19:49 Mirtazapine (Remeron) 15 mg QHS PO 05/12/20 21:00 05/16/20 17:50 DC 05/15/20 21:02 Sertraline HCl (Zoloft) 75 mg DAILY PO 05/15/20 09:00 05/26/20 07:33 Quetiapine Fumarate (SEROquel) 25 mg QHS PO 05/14/20 21:00 05/25/20 19:54 Olanzapine (ZyPREXA ZYDIS) 2.5 mg PRN Q2HR PRN PO PSYCHOSIS 05/15/20 09:45 05/24/20 19:42 Quetiapine Fumarate (SEROquel) 12.5 mg 0900,1700 PO 05/16/20 09:00 05/18/20 17:46 DC 05/18/20 15:48 Amitriptyline HCl (Elavil) 25 mg QHS PO 05/16/20 21:00 05/22/20 18:05 DC 05/21/20 19:30 Quetiapine Fumarate (SEROquel) 12.5 mg 0900,1200,1700 PO 05/19/20 09:00 05/26/20 07:33 Trazodone HCl (Desyrel) 50 mg QHS PRN PO INSOMNIA, MAY REPEAT X1 05/18/20 18:00 05/18/20 17:57 DC Trazodone HCl (Desyrel) 50 mg PRN QHS PRN PO INSOMNIA, MRx1, 2ND CHOICE 05/18/20 18:00 05/25/20 19:54 Amitriptyline HCl (Elavil) 50 mg QHS PO 05/22/20 21:00 05/25/20 19:54 I have reviewed the current psychotropics carefully including drug interactions. Risk benefit ratio favors no change other than as noted in my dictated progress note. Diagnosis: Problems: (1) Impulse control disorder, unspecified (2) Anxiety disorder, unspecified (3) Dementia, vascular, with depression (4) Dementia, vascular, with delusions (5) Dementia in Alzheimer's disease with depression (6) Dementia in Alzheimer's disease with delusions (7) Dementia of the Alzheimer's type with early onset with behavioral disturbance (8) Major neurocognitive disorder ELIAS WILLSON MD May 26, 2020 10:45
[2020-05-26 16:19] VITALS: BP 164/80
[2020-05-26] MEDS: traZODone 50 MG TABLET. PO PRN (19:58)
[2020-05-26] MEDS: AMITRIPTYLINE HCL 50 MG TABLET PO SCH (19:58)
--- NOTE | 2020-05-26 21:56 | PDOC ---
Exam Note: Avtar Note: Please also refer to the separate dictated note~for this date of service dictated separately.~Patient seen individually. Discussed the patient with Nursing staff reviewed the chart.~Reviewed interim history and current functioning. Reviewed vital signs,~Labs/ Radiology~and current medications noted below. Continue current treatment with the changes noted in the dictated addendum note Assessment: Vital Signs/I&O: Vital Signs Date Time Temp Pulse Resp B/P (MAP) Pulse Ox O2 Delivery O2 Flow Rate FiO2 05/26/20 16:19 97.6 80 18 164/80 (108) 96 05/25/20 06:37 Room Air I & O 05/25/20 05/25/20 05/26/20 15:00 23:00 07:00 Intake Total 480 ml 320 ml Balance 480 ml 320 ml Current Medications: Meds: Current Medications Medications (Trade) Dose Ordered Sig/Desire Route PRN Reason Start Time Stop Time Status Last Admin Dose Admin Acetaminophen (Tylenol) 650 mg PRN Q6HRS PRN PO MILD PAIN / TEMP > 100.3'F 05/07/20 14:45 Multi-Ingredient Ointment (Analgesic [place]) 1 [place] PRN QID PRN TP MUSCLE PAIN 05/07/20 14:45 Al Hydroxide/Mg Hydroxide (Mylanta Plus Xs) 15 ml PRN AFTMEALHC PRN PO DYSPEPSIA 05/07/20 14:45 Magnesium Hydroxide (Milk Of Magnesia) 2,400 mg PRN QHS PRN PO CONSTIPATION 05/07/20 14:45 05/23/20 23:03 Acetaminophen (Tylenol) 500 mg PRN Q6HRS PRN PO MILD PAIN / TEMP > 100.3'F 05/07/20 21:45 UNV Lorazepam (Ativan) 0.25 mg DAILY PO 05/08/20 09:00 05/08/20 13:25 DC 05/08/20 08:20 Lorazepam (Ativan) 0.5 mg PRN QHS PRN PO ANXIETY 05/07/20 21:45 05/08/20 13:23 DC Memantine (Namenda) 10 mg DAILY PO 05/08/20 09:00 05/15/20 17:45 DC 05/15/20 08:52 Neomycin/ Polymyxin/ Bacitracin (Triple Antibiotic Ointment) 1 pkt PRN DAILY PRN TP SKIN CLEANSING 05/07/20 21:45 Trazodone HCl (Desyrel) 100 mg QHS PO 05/08/20 21:00 05/07/20 22:05 DC Non-Formulary Medication (Melatonin ) 5 mg QHS PRN SL insomnia 05/07/20 21:45 05/07/20 22:05 DC Morphine Sulfate (Morphine Oral Solution) 5 mg PRN Q3HRS PRN PO MOD-SEV PAIN 05/07/20 22:45 05/14/20 14:22 Trazodone HCl (Desyrel) 100 mg QHS PO 05/07/20 23:00 05/18/20 17:46 DC 05/17/20 19:22 Melatonin (Melatonin) 3 mg PRN QHS PRN PO INSOMNIA 05/07/20 22:45 05/08/20 13:23 DC 05/07/20 22:46 Lorazepam (Ativan) 0.25 mg PRN QHS PRN PO ANXIETY 05/08/20 21:00 05/13/20 21:46 Lorazepam (Ativan) 0.25 mg DAILY PO 05/09/20 09:00 05/13/20 09:00 DC 05/13/20 08:51 Sertraline HCl (Zoloft) 25 mg DAILY PO 05/09/20 09:00 05/11/20 09:59 DC 05/11/20 09:02 Sertraline HCl (Zoloft) 50 mg DAILY PO 05/12/20 09:00 05/14/20 10:49 DC 05/14/20 07:50 Melatonin (Melatonin) 3 mg PRN QHS PRN PO INSOMNIA, 1ST CHOICE 05/11/20 18:15 05/23/20 22:03 Mirtazapine (Remeron) 7.5 mg QHS PO 05/11/20 21:00 05/12/20 17:49 DC 05/11/20 19:49 Mirtazapine (Remeron) 15 mg QHS PO 05/12/20 21:00 05/16/20 17:50 DC 05/15/20 21:02 Sertraline HCl (Zoloft) 75 mg DAILY PO 05/15/20 09:00 05/26/20 07:33 Quetiapine Fumarate (SEROquel) 25 mg QHS PO 05/14/20 21:00 05/26/20 19:58 Olanzapine (ZyPREXA ZYDIS) 2.5 mg PRN Q2HR PRN PO PSYCHOSIS 05/15/20 09:45 05/24/20 19:42 Quetiapine Fumarate (SEROquel) 12.5 mg 0900,1700 PO 05/16/20 09:00 05/18/20 17:46 DC 05/18/20 15:48 Amitriptyline HCl (Elavil) 25 mg QHS PO 05/16/20 21:00 05/22/20 18:05 DC 05/21/20 19:30 Quetiapine Fumarate (SEROquel) 12.5 mg 0900,1200,1700 PO 05/19/20 09:00 05/26/20 17:21 Trazodone HCl (Desyrel) 50 mg QHS PRN PO INSOMNIA, MAY REPEAT X1 05/18/20 18:00 05/18/20 17:57 DC Trazodone HCl (Desyrel) 50 mg PRN QHS PRN PO INSOMNIA, MRx1, 2ND CHOICE 05/18/20 18:00 05/26/20 19:58 Amitriptyline HCl (Elavil) 50 mg QHS PO 05/22/20 21:00 05/26/20 19:58 I have reviewed the current psychotropics carefully including drug interactions. Risk benefit ratio favors no change other than as noted in my dictated progress note. Diagnosis: Problems: (1) Impulse control disorder, unspecified (2) Anxiety disorder, unspecified (3) Dementia, vascular, with depression (4) Dementia, vascular, with delusions (5) Dementia in Alzheimer's disease with depression (6) Dementia in Alzheimer's disease with delusions (7) Dementia of the Alzheimer's type with early onset with behavioral disturbance (8) Major neurocognitive disorder ELIAS WILLSON MD May 26, 2020 21:56
[2020-05-26] MEDS ORDERED: ACET325T21 PO (22:21)
[2020-05-26] MEDS ORDERED: AMIT50TA PO (22:22)
[2020-05-26] MEDS ORDERED: LORA0.5T21 PO (22:23)
[2020-05-26] MEDS ORDERED: MAGN24003 PO (22:24)
[2020-05-26] MEDS ORDERED: MAG-115 PO (22:24)
[2020-05-26] MEDS ORDERED: METH57CR17 TP (22:25)
[2020-05-26] MEDS ORDERED: OLAN5TAB7 PO (22:25)
[2020-05-26] MEDS ORDERED: MELA3TAB4 PO (22:25)
[2020-05-26] MEDS ORDERED: QUET25TA5 PO ×2 (22:26→22:27)
[2020-05-26] MEDS ORDERED: SERT25TA PO (22:27)
[2020-05-26] MEDS ORDERED: TRAZ-120 PO (22:28)
[2020-05-27 06:00] VITALS: BP 136/81
[2020-05-27] MEDS: QUEtiapine 25 MG TABLET. PO SCH ×3 (07:51→12:00)
[2020-05-27] MEDS: SERTRALINE 50 MG TABLET. PO SCH (07:52)
--- NOTE | 2020-05-27 09:05 | PDOC ---
Exam Note: Avtar Note: This note is a late entry for 05/26/2020 covers elements not covered in my initial note. Subjective: The patient was seen individually in the evening of 05/26/2020 with Gerda LEYVA, discussed and reviewed the chart. He slept 4-1/4 hours previous night. Patient had a fall around 8.30 a.m. He seemed to sit on a chair that was not there. He had a skin tear, otherwise, no injuries. Seroquel at noon was held and we will go ahead and stop it. [place] was in the [place] this evening as I met with him. Review of Systems: No CV, pulmonary, eye, ENT system symptoms on review. Reliability poor. Mental Status Exam: The patient is oriented to himself. Insight and judgment, recent and remote memory, attention and concentration, fund of knowledge is poor consistent with his diagnoses. Laboratory Data: Reviewed. 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 Anxiety disorder unspecified. Impulse control disorder unspecified. Plan: No change from initial note. Assessment: Vital Signs/I&O: Vital Signs Date Time Temp Pulse Resp B/P (MAP) Pulse Ox O2 Delivery O2 Flow Rate FiO2 05/27/20 06:00 97.4 79 16 136/81 (99) 94 05/25/20 06:37 Room Air I & O 05/26/20 05/26/20 05/27/20 15:00 23:00 07:00 Intake Total 660 ml 600 ml Balance 660 ml 600 ml Current Medications: Meds: Current Medications Medications (Trade) Dose Ordered Sig/Desire Route PRN Reason Start Time Stop Time Status Last Admin Dose Admin Acetaminophen (Tylenol) 650 mg PRN Q6HRS PRN PO MILD PAIN / TEMP > 100.3'F 05/07/20 14:45 Multi-Ingredient Ointment (Analgesic [place]) 1 [place] PRN QID PRN TP MUSCLE PAIN 05/07/20 14:45 Al Hydroxide/Mg Hydroxide (Mylanta Plus Xs) 15 ml PRN AFTMEALHC PRN PO DYSPEPSIA 05/07/20 14:45 Magnesium Hydroxide (Milk Of Magnesia) 2,400 mg PRN QHS PRN PO CONSTIPATION 05/07/20 14:45 05/23/20 23:03 Acetaminophen (Tylenol) 500 mg PRN Q6HRS PRN PO MILD PAIN / TEMP > 100.3'F 05/07/20 21:45 UNV Lorazepam (Ativan) 0.25 mg DAILY PO 05/08/20 09:00 05/08/20 13:25 DC 05/08/20 08:20 Lorazepam (Ativan) 0.5 mg PRN QHS PRN PO ANXIETY 05/07/20 21:45 05/08/20 13:23 DC Memantine (Namenda) 10 mg DAILY PO 05/08/20 09:00 05/15/20 17:45 DC 05/15/20 08:52 Neomycin/ Polymyxin/ Bacitracin (Triple Antibiotic Ointment) 1 pkt PRN DAILY PRN TP SKIN CLEANSING 05/07/20 21:45 Trazodone HCl (Desyrel) 100 mg QHS PO 05/08/20 21:00 05/07/20 22:05 DC Non-Formulary Medication (Melatonin ) 5 mg QHS PRN SL insomnia 05/07/20 21:45 05/07/20 22:05 DC Morphine Sulfate (Morphine Oral Solution) 5 mg PRN Q3HRS PRN PO MOD-SEV PAIN 05/07/20 22:45 05/14/20 14:22 Trazodone HCl (Desyrel) 100 mg QHS PO 05/07/20 23:00 05/18/20 17:46 DC 05/17/20 19:22 Melatonin (Melatonin) 3 mg PRN QHS PRN PO INSOMNIA 05/07/20 22:45 05/08/20 13:23 DC 05/07/20 22:46 Lorazepam (Ativan) 0.25 mg PRN QHS PRN PO ANXIETY 05/08/20 21:00 05/13/20 21:46 Lorazepam (Ativan) 0.25 mg DAILY PO 05/09/20 09:00 05/13/20 09:00 DC 05/13/20 08:51 Sertraline HCl (Zoloft) 25 mg DAILY PO 05/09/20 09:00 05/11/20 09:59 DC 05/11/20 09:02 Sertraline HCl (Zoloft) 50 mg DAILY PO 05/12/20 09:00 05/14/20 10:49 DC 05/14/20 07:50 Melatonin (Melatonin) 3 mg PRN QHS PRN PO INSOMNIA, 1ST CHOICE 05/11/20 18:15 05/23/20 22:03 Mirtazapine (Remeron) 7.5 mg QHS PO 05/11/20 21:00 05/12/20 17:49 DC 05/11/20 19:49 Mirtazapine (Remeron) 15 mg QHS PO 05/12/20 21:00 05/16/20 17:50 DC 05/15/20 21:02 Sertraline HCl (Zoloft) 75 mg DAILY PO 05/15/20 09:00 05/27/20 07:52 Quetiapine Fumarate (SEROquel) 25 mg QHS PO 05/14/20 21:00 05/26/20 19:58 Olanzapine (ZyPREXA ZYDIS) 2.5 mg PRN Q2HR PRN PO PSYCHOSIS 05/15/20 09:45 05/24/20 19:42 Quetiapine Fumarate (SEROquel) 12.5 mg 0900,1700 PO 05/16/20 09:00 05/18/20 17:46 DC 05/18/20 15:48 Amitriptyline HCl (Elavil) 25 mg QHS PO 05/16/20 21:00 05/22/20 18:05 DC 05/21/20 19:30 Quetiapine Fumarate (SEROquel) 12.5 mg 0900,1200,1700 PO 05/19/20 09:00 05/27/20 07:51 Trazodone HCl (Desyrel) 50 mg QHS PRN PO INSOMNIA, MAY REPEAT X1 05/18/20 18:00 05/18/20 17:57 DC Trazodone HCl (Desyrel) 50 mg PRN QHS PRN PO INSOMNIA, MRx1, 2ND CHOICE 05/18/20 18:00 05/26/20 19:58 Amitriptyline HCl (Elavil) 50 mg QHS PO 05/22/20 21:00 05/26/20 19:58 I have reviewed the current psychotropics carefully including drug interactions. Risk benefit ratio favors no change other than as noted in my dictated progress note. Diagnosis: Problems: (1) Impulse control disorder, unspecified (2) Anxiety disorder, unspecified (3) Dementia, vascular, with depression (4) Dementia, vascular, with delusions (5) Dementia in Alzheimer's disease with depression (6) Dementia in Alzheimer's disease with delusions (7) Dementia of the Alzheimer's type with early onset with behavioral disturbance (8) Major neurocognitive disorder ELIAS WILLSON MD May 27, 2020 09:05
--- NOTE | 2020-05-27 22:14 | PDOC ---
Exam Note: [place]tar Note: Please also refer to the separate dictated note~for this date of service dictated separately.~Patient seen individually. Discussed the patient with Nursing staff reviewed the chart.~Reviewed interim history and current functioning. Reviewed vital signs,~Labs/ Radiology~and current medications noted below. Continue current treatment with the changes noted in the dictated addendum note Assessment: Vital Signs/I&O: Vital Signs Date Time Temp Pulse Resp B/P (MAP) Pulse Ox O2 Delivery O2 Flow Rate FiO2 05/27/20 06:00 97.4 79 16 136/81 (99) 94 05/25/20 06:37 Room Air I & O 05/26/20 05/26/20 05/27/20 15:00 23:00 07:00 Intake Total 660 ml 600 ml Balance 660 ml 600 ml Current Medications: Meds: Current Medications Medications (Trade) Dose Ordered Sig/Desire Route PRN Reason Start Time Stop Time Status Last Admin Dose Admin Acetaminophen (Tylenol) 650 mg PRN Q6HRS PRN PO MILD PAIN / TEMP > 100.3'F 05/07/20 14:45 05/27/20 13:35 DC Multi-Ingredient Ointment (Analgesic [place]) 1 [place] PRN QID PRN TP MUSCLE PAIN 05/07/20 14:45 05/27/20 13:35 DC Al Hydroxide/Mg Hydroxide (Mylanta Plus Xs) 15 ml PRN AFTMEALHC PRN PO DYSPEPSIA 05/07/20 14:45 05/27/20 13:35 DC Magnesium Hydroxide (Milk Of Magnesia) 2,400 mg PRN QHS PRN PO CONSTIPATION 05/07/20 14:45 05/27/20 13:35 DC 05/23/20 23:03 Acetaminophen (Tylenol) 500 mg PRN Q6HRS PRN PO MILD PAIN / TEMP > 100.3'F 05/07/20 21:45 UNV Lorazepam (Ativan) 0.25 mg DAILY PO 05/08/20 09:00 05/08/20 13:25 DC 05/08/20 08:20 Lorazepam (Ativan) 0.5 mg PRN QHS PRN PO ANXIETY 05/07/20 21:45 05/08/20 13:23 DC Memantine (Namenda) 10 mg DAILY PO 05/08/20 09:00 05/15/20 17:45 DC 05/15/20 08:52 Neomycin/ Polymyxin/ Bacitracin (Triple Antibiotic Ointment) 1 pkt PRN DAILY PRN TP SKIN CLEANSING 05/07/20 21:45 05/27/20 13:35 DC Trazodone HCl (Desyrel) 100 mg QHS PO 05/08/20 21:00 05/07/20 22:05 DC Non-Formulary Medication (Melatonin ) 5 mg QHS PRN SL insomnia 05/07/20 21:45 05/07/20 22:05 DC Morphine Sulfate (Morphine Oral Solution) 5 mg PRN Q3HRS PRN PO MOD-SEV PAIN 05/07/20 22:45 05/27/20 13:35 DC 05/14/20 14:22 Trazodone HCl (Desyrel) 100 mg QHS PO 05/07/20 23:00 05/18/20 17:46 DC 05/17/20 19:22 Melatonin (Melatonin) 3 mg PRN QHS PRN PO INSOMNIA 05/07/20 22:45 05/08/20 13:23 DC 05/07/20 22:46 Lorazepam (Ativan) 0.25 mg PRN QHS PRN PO ANXIETY 05/08/20 21:00 05/27/20 13:35 DC 05/13/20 21:46 Lorazepam (Ativan) 0.25 mg DAILY PO 05/09/20 09:00 05/13/20 09:00 DC 05/13/20 08:51 Sertraline HCl (Zoloft) 25 mg DAILY PO 05/09/20 09:00 05/11/20 09:59 DC 05/11/20 09:02 Sertraline HCl (Zoloft) 50 mg DAILY PO 05/12/20 09:00 05/14/20 10:49 DC 05/14/20 07:50 Melatonin (Melatonin) 3 mg PRN QHS PRN PO INSOMNIA, 1ST CHOICE 05/11/20 18:15 05/27/20 13:35 DC 05/23/20 22:03 Mirtazapine (Remeron) 7.5 mg QHS PO 05/11/20 21:00 05/12/20 17:49 DC 05/11/20 19:49 Mirtazapine (Remeron) 15 mg QHS PO 05/12/20 21:00 05/16/20 17:50 DC 05/15/20 21:02 Sertraline HCl (Zoloft) 75 mg DAILY PO 05/15/20 09:00 05/27/20 13:35 DC 05/27/20 07:52 Quetiapine Fumarate (SEROquel) 25 mg QHS PO 05/14/20 21:00 05/27/20 13:35 DC 05/26/20 19:58 Olanzapine (ZyPREXA ZYDIS) 2.5 mg PRN Q2HR PRN PO PSYCHOSIS 05/15/20 09:45 05/27/20 13:35 DC 05/24/20 19:42 Quetiapine Fumarate (SEROquel) 12.5 mg 0900,1700 PO 05/16/20 09:00 05/18/20 17:46 DC 05/18/20 15:48 Amitriptyline HCl (Elavil) 25 mg QHS PO 05/16/20 21:00 05/22/20 18:05 DC 05/21/20 19:30 Quetiapine Fumarate (SEROquel) 12.5 mg 0900,1200,1700 PO 05/19/20 09:00 05/27/20 13:35 DC 05/27/20 12:00 Trazodone HCl (Desyrel) 50 mg QHS PRN PO INSOMNIA, MAY REPEAT X1 05/18/20 18:00 05/18/20 17:57 DC Trazodone HCl (Desyrel) 50 mg PRN QHS PRN PO INSOMNIA, MRx1, 2ND CHOICE 05/18/20 18:00 05/27/20 13:35 DC 05/26/20 19:58 Amitriptyline HCl (Elavil) 50 mg QHS PO 05/22/20 21:00 05/27/20 13:35 DC 05/26/20 19:58 I have reviewed the current psychotropics carefully including drug interactions. Risk benefit ratio favors no change other than as noted in my dictated progress note. Diagnosis: Problems: (1) Impulse control disorder, unspecified (2) Anxiety disorder, unspecified (3) Dementia, vascular, with depression (4) Dementia, vascular, with delusions (5) Dementia in Alzheimer's disease with depression (6) Dementia in Alzheimer's disease with delusions (7) Dementia of the Alzheimer's type with early onset with behavioral disturbance (8) Major neurocognitive disorder ELIAS WILLSON MD May 27, 2020 22:14
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
== END 2020-05-27 13:00 | DRG 57 ==
LOC: GEROPSY 14:10
PROVIDERS: ADMIT Psychiatry & Neurology Psychiatry; ATTEND Psychiatry & Neurology Psychiatry
DX: G30.9 Alzheimer's disease, unspecified (principal); F01.51 Vascular dementia, unspecified severity, with behavioral disturbance; F32.3 Major depressive disorder, single episode, severe with psychotic features; F02.81 Dementia in other diseases classified elsewhere, unspecified severity, with behavioral disturbance; E87.0 Hyperosmolality and hypernatremia; F41.9 Anxiety disorder, unspecified; F63.9 Impulse disorder, unspecified; E86.0 Dehydration; Z86.16 Personal history of COVID-19; Z79.899 Other long term (current) drug therapy
CPT/HCPCS: 36415; 80053; 80061; 81001; 82306; 82607; 83036; 83540; 83550; 83605; 83735; 84436; 84443; 84480; 85025; 85027; 86592; 93005